=== PATIENT | male | born 1995 | race Caucasian/White ===

== ENCOUNTER 2019-02-28 20:46 | Emergency (ER) | payer OTHER ==
[2019-02-28 21:00] VITALS: RESP 18
--- NOTE | 2019-02-28 21:19 | ED ---
Seizure HPI - General Chief Complaint: Seizure Stated Complaint: Had two seizures Time Seen by Provider: 02/28/19 21:02 Source: patient Mode of arrival: wheelchair Limitations: no limitations - History of Present Illness Initial Comments: This patient is 23-year-old man who presents to be evaluated for suspected seizures. The patient states that he had not been feeling well, he has been having some cough and wheezing for a few days. Last night and then again just prior to coming in he had suspected seizures. Was reported that he passed out, had some tensing up and shaking, followed by a brief period of confusion. Happened again this evening. Patient has no history of seizures. Denies trauma. Patient states she is back at his baseline other than having the cough and wheezing. MD Complaint: seizure -: minutes(s) Description of Episode: loss of consciousness, tonic-clonic movement -: second(s) Witnessed: yes - by bystander Trauma: No Seizure History: none Place: home Possible Precipitating Event: none Associated Symptoms: cough Treatments Prior to Arrival: none - Related Data Previous Rx's Medication Instructions Recorded Albuterol Inhaler [Ventolin Hfa 1 - 2 puff INHALATION Q6HR PRN #1 02/28/19 Inhaler] inhaler predniSONE 20 mg PO BID #8 tab 02/28/19 Allergies Allergy/AdvReac Type Severity Reaction Status Date / Time No Known Allergies Allergy Verified 02/28/19 21:15 Review of Systems ROS Statement: Those systems with pertinent positive or pertinent negative responses have been documented in the HPI. ROS Other: All systems not noted in ROS Statement are negative. Constitutional: Denies: fever, chills, weakness Eyes: Denies: eye pain, vision change Respiratory: Reports: cough, wheezes. Denies: dyspnea, hemoptysis Cardiovascular: Denies: chest pain, palpitations, syncope Gastrointestinal: Denies: abdominal pain, nausea, vomiting Genitourinary: Denies: dysuria, hematuria Skin: Denies: rash Neurological: Denies: headache, weakness, numbness, paresthesias Past Medical History Past Medical History: Asthma History of Any Multi-Drug Resistant Organisms: None Reported Past Surgical History: No Surgical Hx Reported Past Psychological History: Anxiety Smoking Status: Current every day smoker Past Alcohol Use History: Occasional Past Drug Use History: None Reported General Exam Limitations: no limitations General appearance: alert, in no apparent distress Head exam: Present: atraumatic, normocephalic Eye exam: Present: normal appearance. Absent: scleral icterus, conjunctival in jection ENT exam: Present: normal oropharynx Neck exam: Present: normal inspection, full ROM. Absent: tenderness, meningismus Respiratory exam: Present: wheezes. Absent: respiratory distress, rales, rhonchi, stridor Cardiovascular Exam: Present: regular rate, normal rhythm, normal heart sounds. Absent: systolic murmur, diastolic murmur, rubs, gallop GI/Abdominal exam: Present: soft. Absent: distended, tenderness, guarding, rebound, rigid Extremities exam: Present: normal inspection, normal capillary refill. Absent: pedal edema, calf tenderness Back exam: Absent: CVA tenderness (R), CVA tenderness (L), vertebral tenderness Neurological exam: Present: alert, oriented X3, CN II-XII intact. Absent: motor sensory deficit Skin exam: Present: warm, dry, intact, normal color. Absent: rash Course Vital Signs 02/28/19 02/28/19 02/28/19 20:54 22:45 22:48 Temperature 98.6 F 98.3 F Pulse Rate 67 84 84 Respiratory 18 18 Rate Blood Pressure 133/83 130/82 O2 Sat by Pulse 97 96 Oximetry 02/28/19 22:58 Temperature Pulse Rate 84 Respiratory Rate Blood Pressure O2 Sat by Pulse Oximetry Medical Decision Making - Medical Decision Making Patient is 23-year-old man with possible new-onset seizures. Patient is back at his baseline. Discussed admission versus further outpatient workup with neurology, at this point patient elects outpatient. Discussed driving restrictions falling seizures. Patient also with acute bronchitis and started treatment for this. Appropriate further care and follow-up discussed. - Lab Data Result diagrams: 02/28/19 21:10 02/28/19 21:10 Lab Results 02/28/19 02/28/19 02/28/19 Range/Units 21:10 21:10 21:10 WBC 9.9 (3.8-10.6) k/uL RBC 5.07 (4.30-5.90) m/uL Hgb 15.5 (13.0-17.5) gm/dL Hct 45.6 (39.0-53.0) % MCV 90.0 (80.0-100.0) fL MCH 30.5 (25.0-35.0) pg MCHC 34.0 (31.0-37.0) g/dL RDW 12.1 (11.5-15.5) % Plt Count 250 (150-450) k/uL Neutrophils % 72 % Lymphocytes % 19 % Monocytes % 5 % Eosinophils % 2 % Basophils % 0 % Neutrophils # 7.2 (1.3-7.7) k/uL Lymphocytes # 1.9 (1.0-4.8) k/uL Monocytes # 0.5 (0-1.0) k/uL Eosinophils # 0.2 (0-0.7) k/uL Basophils # 0.0 (0-0.2) k/uL Sodium 143 (137-145) mmol/L Potassium 4.1 (3.5-5.1) mmol/L Chloride 106 (98-107) mmol/L Carbon Dioxide 26 (22-30) mmol/L Anion Gap 11 mmol/L BUN 11 (9-20) mg/dL Creatinine 1.05 (0.66-1.25) mg/dL Est GFR (CKD-EPI)AfAm >90 (>60 ml/min/1.73 sqM) Est GFR (CKD-EPI)NonAf >90 (>60 ml/min/1.73 sqM) Glucose 88 (74-99) mg/dL Calcium 10.3 H (8.4-10.2) mg/dL Total Bilirubin 0.4 (0.2-1.3) mg/dL AST 34 (17-59) U/L ALT 49 (21-72) U/L Alkaline Phosphatase 96 (38-126) U/L Total Protein 7.9 (6.3-8.2) g/dL Albumin 4.7 (3.5-5.0) g/dL Urine Opiates Screen Not Detected (NotDetected) Ur Oxycodone Screen Not Detected (NotDetected) Urine Methadone Screen Not Detected (NotDetected) Ur Propoxyphene Screen Not Detected (NotDetected) Ur Barbiturates Screen Not Detected (NotDetected) U Tricyclic Antidepress Not Detected (NotDetected) Ur Phencyclidine Scrn Not Detected (NotDetected) Ur Amphetamines Screen Not Detected (NotDetected) U Methamphetamines Scrn Not Detected (NotDetected) U Benzodiazepines Scrn Not Detected (NotDetected) Urine Cocaine Screen Not Detected (NotDetected) U Marijuana (THC) Screen Detected H (NotDetected) Serum Alcohol <10 mg/dL - EKG Data -: EKG Interpreted by Me EKG shows normal: sinus rhythm (With sinus arrhythmia, rate 72 bpm), axis (Normal), intervals (Normal), QRS complexes (Normal), ST-T waves (Normal) Rate: normal Interpretation: normal EKG Disposition Clinical Impression: New onset seizure, Bronchitis Disposition: HOME SELF-CARE Condition: Good Instructions (If sedation given, give patient instructions): New-Onset Seizure in Adults (ED) Prescriptions: predniSONE 20 mg PO BID #8 tab Albuterol Inhaler [Ventolin Hfa Inhaler] 1 - 2 puff INHALATION Q6HR PRN #1 inhaler PRN Reason: Wheezing Is patient prescribed a controlled substance at d/c from ED?: No Referrals: None,Stated [Primary Care Provider] - 1-2 days Jarrett Shelton MD [STAFF PHYSICIAN] - 1-2 days
--- NOTE | 2019-02-28 21:38 | CT ---
EXAMINATION TYPE: CT brain wo con DATE OF EXAM: 02/28/2019 COMPARISON: None HISTORY: Pt states he had 2 seizures w/in 24 hours w/LOC. Pt denies seizure hx. CT DLP: 1180.4 mGycm. Automated Exposure Control for Dose Reduction was Utilized. TECHNIQUE: CT scan of the head is performed without contrast. FINDINGS: Ventricles have normal size. There is no mass effect nor midline shift. There is no sign of intracranial hemorrhage. There is mucosal moderate thickening of the ethmoid and maxillary sinuses. Sphenoid and frontal sinuses appear fairly normal. Calvarium is intact. IMPRESSION: Negative CT scan of the brain. Sinusitis.
[2019-02-28 21:40] LABS: Basophils % (A) 0 %; Eosinophils # (A) 0.2 k/uL (0-0.7); Eosinophils % (A) 2 %; HCT 45.6 % (39.0-53.0); HGB 15.5 gm/dL (13.0-17.5); Lymphocytes # (A) 1.9 k/uL (1.0-4.8); Lymphocytes % (A) 19 %; MCH 30.5 pg (25.0-35.0); Mean Platelet Volume 7.1; Monocytes # (A) 0.5 k/uL (0-1.0); Monocytes % (A) 5 %; Neutrophils # (A) 7.2 k/uL (1.3-7.7); Neutrophils % (A) 72 %; Platelet Count 250 k/uL (150-450); RBC 5.07 m/uL (4.30-5.90); RDW 12.1 % (11.5-15.5); WBC 9.9 k/uL (3.8-10.6)
--- NOTE | 2019-02-28 21:49 | XR ---
EXAMINATION TYPE: XR chest 2V DATE OF EXAM: 02/28/2019 COMPARISON: NONE HISTORY: Cough TECHNIQUE: Frontal and lateral views of the chest are obtained. FINDINGS: Heart and mediastinum are normal. Lungs are clear. Diaphragm is normal. Bony thorax appear s normal. IMPRESSION: Normal chest.
[2019-02-28 21:54] LABS: ALT 49 U/L (21-72); AST 34 U/L (17-59); African American GFR (CKD) >90 (>60 ml/min/1.73 sqM); Albumin 4.7 g/dL (3.5-5.0); Alcohol <10 mg/dL; Alkaline Phosphatase 96 U/L (38-126); Anion Gap 11 mmol/L; Blood Urea Nitrogen 11 mg/dL (9-20); Calcium 10.3 mg/dL (8.4-10.2); Carbon Dioxide 26 mmol/L (22-30); Chloride 106 mmol/L (98-107); Glucose 88 mg/dL (74-99); Potassium 4.1 mmol/L (3.5-5.1); Sodium 143 mmol/L (137-145); Total Bilirubin 0.4 mg/dL (0.2-1.3); Total Protein 7.9 g/dL (6.3-8.2)
[2019-02-28 22:01] LABS: Amphetamine Screen,Urine Not Detected (NotDetected); Barbiturate Screen,Urine Not Detected (NotDetected); Benzodiazepines Screen,Urine Not Detected (NotDetected); Cocaine Screen,Urine Not Detected (NotDetected); Methadone Screen, Urine Not Detected (NotDetected); Opiate Screen,Urine Not Detected (NotDetected); Oxycodone Screen, Urine Not Detected (NotDetected); Phencyclidine Screen,Urine Not Detected (NotDetected); Tricyclic Antidepressant,Urine Not Detected (NotDetected); Urn Cannabinoid Scrn Detected (NotDetected)
[2019-02-28] MEDS ORDERED: predniSONE 20 MG TAB PO STA (22:36)
[2019-02-28] MEDS ORDERED: ACETAMINOPHEN TAB 325 MG TAB PO STA (22:36)
[2019-02-28] MEDS ORDERED: ALBUTEROL NEBULIZED 2.5 MG/3 ML INHALATION STA (22:36)
[2019-02-28 22:46] VITALS: BP 130/82; PULSE 84; TEMP 98.3
== END 2019-02-28 23:03 | disposition home or self-care (01) ==
LOC: EC 20:46
DX: R56.9 Unspecified convulsions (principal); J20.9 Acute bronchitis, unspecified; F17.200 Nicotine dependence, unspecified, uncomplicated
CPT/HCPCS: 36415; 94640; 93005; 80053; 85025; 80306; 80320; 71046; 70450; 99285; J7512

== ENCOUNTER 2019-09-22 19:17 | Inpatient (IN) | payer OTHER ==
[~2019-09-22 19:17] MED LIST: NALOXONE 0.4 MG/ML 10 ML VIAL IVP STA
[2019-09-22] MEDS ORDERED: SODIUM CHLORIDE 0.9% 1,000 ML IV STA (19:25)
--- NOTE | 2019-09-22 19:27 | ED ---
Overdose HPI <Casimiro Leal - Last Filed: 09/22/19 21:12> - General Source: police, EMS, RN notes reviewed Mode of arrival: EMS Limitations: altered mental status <Andrea Saenz - Last Filed: 09/22/19 21:50> - General Stated Complaint: Overdose Time Seen by Provider: 09/22/19 19:23 - History of Present Illness Initial Comments: This is a 24-year-old male presents emergency from EMS for possible overdose, altered mental status. Information is given by EMS, police patient is responsive to painful stimuli at this time. Patient received 4 mg of Narcan with no change in mental status. Patient does have some periods of agitation. Patient's was brought in with another person with similar symptoms. There were reports that the patient drank a large amount of tequila, possibly took muscle relaxers. There is no pertinent history given. No obvious injuries. (Andrea Saenz) - Related Data Home Medications Medication Instructions Recorded Confirmed Unable To Assess [Unable to Assess] 09/22/19 09/22/19 Allergies Allergy/AdvReac Type Severity Reaction Status Date / Time No Known Allergies Allergy Verified 09/22/19 20:19 Review of Systems ROS Other: All systems not noted in ROS Statement are negative. <Casimiro Leal - Last Filed: 09/22/19 21:12> ROS Other: All systems not noted in ROS Statement are negative. <Andrea Saenz - Last Filed: 09/22/19 21:50> ROS Statement: Those systems with pertinent positive or pertinent negative responses have been documented in the HPI. Past Medical History Past Medical History: Asthma History of Any Multi-Drug Resistant Organisms: None Reported Past Surgical History: No Surgical Hx Reported Past Psychological History: Anxiety Smoking Status: Current every day smoker Past Alcohol Use History: Occasional Past Drug Use History: None Reported <Andrea Saenz - Last Filed: 09/22/19 21:50> General Exam Limitations: altered mental status General appearance: obtunded Head exam: Present: atraumatic, normocephalic, normal inspection Eye exam: Present: normal appearance, PERRL, EOMI. Absent: scleral icterus, conjunctival injection, periorbital swelling ENT exam: Present: normal oropharynx (Emesis), mucous membranes moist, other (No signs of trauma). Absent: normal exam (Emesis noted) Neck exam: Present: normal inspection, full ROM. Absent: tenderness, meningismus, lymphadenopathy Respiratory exam: Present: respiratory distress, other (Shallow breathing noted, respirations of 8-10). Absent: normal lung sounds bilaterally, wheezes, rales, rhonchi Cardiovascular Exam: Present: normal rhythm, bradycardia (bradycardic at 54), normal heart sounds. Absent: systolic murmur, diastolic murmur, rubs, gallop, clicks GI/Abdominal exam: Present: soft. Absent: tenderness Back exam: Absent: CVA tenderness (R), CVA tenderness (L) Neurological exam: Present: altered. Absent: alert, oriented X3 Skin exam: Present: warm, dry, intact, normal color. Absent: rash <Adnrea Saenz - Last Filed: 09/22/19 21:50> Course <Andrea Saenz - Last Filed: 09/22/19 21:50> Vital Signs 09/22/19 09/22/19 09/22/19 19:20 19:21 19:32 Temperature 93.2 F L Pulse Rate 54 L Respiratory 10 L 10 L Rate Blood Pressure 138/99 O2 Sat by Pulse 100 Oximetry 09/22/19 09/22/19 09/22/19 19:33 19:54 20:00 Temperature 93.2 F L Pulse Rate 73 44 L 44 L Respiratory 10 L 21 16 Rate Blood Pressure 156/114 142/107 O2 Sat by Pulse 94 L 98 100 Oximetry 09/22/19 09/22/19 09/22/19 20:15 20:20 20:30 Temperature 93.0 F L 93.2 F L 93.2 F L Pulse Rate 69 66 64 Respiratory 32 H 13 14 Rate Blood Pressure 145/107 177/94 173/94 O2 Sat by Pulse 97 100 96 Oximetry 09/22/19 09/22/19 09/22/19 20:40 20:45 21:00 Temperature 93.4 F L 93.7 F L Pulse Rate 64 56 L Respiratory 16 12 Rate Blood Pressure 118/93 118/93 118/93 O2 Sat by Pulse 97 97 100 Oximetry 09/22/19 09/22/19 21:15 21:30 Temperature 93.9 F L Pulse Rate 86 56 L Respiratory 28 H 20 Rate Blood Pressure 123/89 152/104 O2 Sat by Pulse 99 Oximetry - Reevaluation(s) Reevaluation #1: 09/22/19 19:26 Anesthesia was immediately notified upon arrival of the patient. Patient evaluated by Dr. Leal (Andrea Saenz) Reevaluation #2: 09/22/19 19:45 Patient was intubated by COAL PIPELINE OPERATOR this time, patient is obtunded, unable to protect airway. Patient had no improvement after Narcan given by EMS and in the emergency department. (Andrea Saenz) Reevaluation #3: 09/22/19 21:37 Patient denies any significant improvement of EKG after 1 amp of bicarb as recommended by poison control. CK, magnesium which were added are unremarkable. (Andrea Saenz) Medical Decision Making - Lab Data Result diagrams: 09/22/19 19:20 09/22/19 19:20 <Casimiro Leal - Last Filed: 09/22/19 21:12> - Lab Data Result diagrams: 09/22/19 19:20 09/22/19 19:20 - EKG Data -: EKG Interpreted by Ar <Andrea Saenz - Last Filed: 09/22/19 21:50> - Medical Decision Making Patient was also evaluated upon arrival by myself, Dr. Leal. Patient is extremely drowsy and unable to demonstrate ability to protect airway. Patient was intubated by COAL PIPELINE OPERATOR. Exam was done. Patient was reexamined again later. Case was discussed in detail with practitioner Gena, who will admit covering for Dr. Koch. Case is also discussed in detail with Dr. Bush, who will consult for critical care. (Casimiro Leal) Patient presented via EMS for respiratory depression, altered mental status. It is unclear at this time with the patient ingested the patient was having to 50 protecting his airway patient was ultimately intubated by anesthesia. Patient had labs, CT of brain, x-ray. These were reviewed. Case discussed with gena covering for Dr. Koch and gis developer. Patient will be admitted to ICU for further management. Poison control was contacted. They did recommend patient received one amp of bicarb secondary to widen QRS. If patient's QRS improves they recommended bicarb drip. Patient did not have any improvement on bicarb noted will be started at this time. ABG reveals pH of 7.34, pCO2 41.6, pO2 greater than 400, (Andrea Saenz) - Lab Data Lab Results 09/22/19 09/22/19 09/22/19 Range/Units 19:20 19:20 19:20 WBC 19.5 H (3.8-10.6) k/uL RBC 5.28 (4.30-5.90) m/uL Hgb 15.8 (13.0-17.5) gm/dL Hct 46.9 (39.0-53.0) % MCV 88.7 (80.0-100.0) fL MCH 29.8 (25.0-35.0) pg MCHC 33.6 (31.0-37.0) g/dL RDW 12.7 (11.5-15.5) % Plt Count 283 (150-450) k/uL Neutrophils % 79 % Lymphocytes % 15 % Monocytes % 4 % Eosinophils % 1 % Basophils % 0 % Neutrophils # 15.4 H (1.3-7.7) k/uL Lymphocytes # 2.9 (1.0-4.8) k/uL Monocytes # 0.7 (0-1.0) k/uL Eosinophils # 0.2 (0-0.7) k/uL Basophils # 0.0 (0-0.2) k/uL Carbon Monoxide, Quant (<10.0) % Sodium 137 (137-145) mmol/L Potassium 4.0 (3.5-5.1) mmol/L Chloride 108 H (98-107) mmol/L Carbon Dioxide 20 L (22-30) mmol/L Anion Gap 9 mmol/L BUN 13 (9-20) mg/dL Creatinine 0.77 (0.66-1.25) mg/dL Est GFR (CKD-EPI)AfAm >90 (>60 ml/min/1.73 sqM) Est GFR (CKD-EPI)NonAf >90 (>60 ml/min/1.73 sqM) Glucose 132 H (74-99) mg/dL Plasma Lactic Acid Dustin 1.9 (0.7-2.0) mmol/L Calcium 8.8 (8.4-10.2) mg/dL Magnesium (1.6-2.3) mg/dL Total Bilirubin 0.3 (0.2-1.3) mg/dL AST 32 (17-59) U/L ALT 35 (4-49) U/L Alkaline Phosphatase 71 (38-126) U/L Ammonia (<30) umol/L Creatine Kinase (55-170) U/L Total Protein 7.0 (6.3-8.2) g/dL Albumin 4.2 (3.5-5.0) g/dL Lipase 90 (23-300) U/L Salicylates <1.0 mg/dL Urine Opiates Screen (NotDetected) Ur Oxycodone Screen (NotDetected) Urine Methadone Screen (NotDetected) Ur Propoxyphene Screen (NotDetected) Acetaminophen <10.0 ug/mL Ur Barbiturates Screen (NotDetected) U Tricyclic Antidepress (NotDetected) Ur Phencyclidine Scrn (NotDetected) Ur Amphetamines Screen (NotDetected) U Methamphetamines Scrn (NotDetected) U Benzodiazepines Scrn (NotDetected) Urine Cocaine Screen (NotDetected) U Marijuana (THC) Screen (NotDetected) Serum Alcohol <10 mg/dL 09/22/19 09/22/19 09/22/19 Range/Units 19:35 20:06 20:40 WBC (3.8-10.6) k/uL RBC (4.30-5.90) m/uL Hgb (13.0-17.5) gm/dL Hct (39.0-53.0) % MCV (80.0-100.0) fL MCH (25.0-35.0) pg MCHC (31.0-37.0) g/dL RDW (11.5-15.5) % Plt Count (150-450) k/uL Neutrophils % % Lymphocytes % % Monocytes % % Eosinophils % % Basophils % % Neutrophils # (1.3-7.7) k/uL Lymphocytes # (1.0-4.8) k/uL Monocytes # (0-1.0) k/uL Eosinophils # (0-0.7) k/uL Basophils # (0-0.2) k/uL Carbon Monoxide, Quant 2.7 (<10.0) % Sodium (137-145) mmol/L Potassium (3.5-5.1) mmol/L Chloride (98-107) mmol/L Carbon Dioxide (22-30) mmol/L Anion Gap mmol/L BUN (9-20) mg/dL Creatinine (0.66-1.25) mg/dL Est GFR (CKD-EPI)AfAm (>60 ml/min/1.73 sqM) Est GFR (CKD-EPI)NonAf (>60 ml/min/1.73 sqM) Glucose (74-99) mg/dL Plasma Lactic Acid Dustin (0.7-2.0) mmol/L Calcium (8.4-10.2) mg/dL Magnesium (1.6-2.3) mg/dL Total Bilirubin (0.2-1.3) mg/dL AST (17-59) U/L ALT (4-49) U/L Alkaline Phosphatase (38-126) U/L Ammonia 13 (<30) umol/L Creatine Kinase (55-170) U/L Total Protein (6.3-8.2) g/dL Albumin (3.5-5.0) g/dL Lipase (23-300) U/L Salicylates mg/dL Urine Opiates Screen Not Detected (NotDetected) Ur Oxycodone Screen Not Detected (NotDetected) Urine Methadone Screen Not Detected (NotDetected) Ur Propoxyphene Screen Not Detected (NotDetected) Acetaminophen ug/mL Ur Barbiturates Screen Not Detected (NotDetected) U Tricyclic Antidepress Not Detected (NotDetected) Ur Phencyclidine Scrn Not Detected (NotDetected) Ur Amphetamines Screen Not Detected (NotDetected) U Methamphetamines Scrn Not Detected (NotDetected) U Benzodiazepines Scrn Not Detected (NotDetected) Urine Cocaine Screen Not Detected (NotDetected) U Marijuana (THC) Screen Detected H (NotDetected) Serum Alcohol mg/dL 09/22/19 Range/Units 20:55 WBC (3.8-10.6) k/uL RBC (4.30-5.90) m/uL Hgb (13.0-17.5) gm/dL Hct (39.0-53.0) % MCV (80.0-100.0) fL MCH (25.0-35.0) pg MCHC (31.0-37.0) g/dL RDW (11.5-15.5) % Plt Count (150-450) k/uL Neutrophils % % Lymphocytes % % Monocytes % % Eosinophils % % Basophils % % Neutrophils # (1.3-7.7) k/uL Lymphocytes # (1.0-4.8) k/uL Monocytes # (0-1.0) k/uL Eosinophils # (0-0.7) k/uL Basophils # (0-0.2) k/uL Carbon Monoxide, Quant (<10.0) % Sodium (137-145) mmol/L Potassium (3.5-5.1) mmol/L Chloride (98-107) mmol/L Carbon Dioxide (22-30) mmol/L Anion Gap mmol/L BUN (9-20) mg/dL Creatinine (0.66-1.25) mg/dL Est GFR (CKD-EPI)AfAm (>60 ml/min/1.73 sqM) Est GFR (CKD-EPI)NonAf (>60 ml/min/1.73 sqM) Glucose (74-99) mg/dL Plasma Lactic Acid Dustin (0.7-2.0) mmol/L Calcium (8.4-10.2) mg/dL Magnesium 1.7 (1.6-2.3) mg/dL Total Bilirubin (0.2-1.3) mg/dL AST (17-59) U/L ALT (4-49) U/L Alkaline Phosphatase (38-126) U/L Ammonia (<30) umol/L Creatine Kinase 162 (55-170) U/L Total Protein (6.3-8.2) g/dL Albumin (3.5-5.0) g/dL Lipase (23-300) U/L Salicylates mg/dL Urine Opiates Screen (NotDetected) Ur Oxycodone Screen (NotDetected) Urine Methadone Screen (NotDetected) Ur Propoxyphene Screen (NotDetected) Acetaminophen ug/mL Ur Barbiturates Screen (NotDetected) U Tricyclic Antidepress (NotDetected) Ur Phencyclidine Scrn (NotDetected) Ur Amphetamines Screen (NotDetected) U Methamphetamines Scrn (NotDetected) U Benzodiazepines Scrn (NotDetected) Urine Cocaine Screen (NotDetected) U Marijuana (THC) Screen (NotDetected) Serum Alcohol mg/dL - EKG Data EKG Comments: EKG performed at 19:19 normal sinus rhythm rate of 64 DE 182 QRS 122 QT/QTC 462/476 (Andrea Saenz) Critical Care Time Critical Care Time: Yes Total Critical Care Time: 35 <Andrea Saenz - Last Filed: 09/22/19 21:50> Critical Care Time: Total 35 minutes of critical care time used 2 initially evaluated the patient, discussed history with EMS and police. Patient's found the altered, obtunded. Patient was intubated by anesthesia at this time. Labs, x-ray, CT were ordered. Poison control was also contacted. Patient is positive for marijuana and other drugs are positive. Negative acetaminophen level negative sailcylates. Patient discussed with Dr. Koch admitting physician, gis developer for ICU care. (Andrea Saenz) Disposition <Casimiro Leal - Last Filed: 09/22/19 21:12> Time of Disposition: 21:50 <Andrea Saenz - Last Filed: 09/22/19 21:50> Clinical Impression: Altered mental status, Drug overdose, Respiratory depression Disposition: ADMITTED IP TO THIS HOSP Condition: Critical
[2019-09-22] MEDS ORDERED: ETOMIDATE 2 MG/ML 10 ML VIAL IVP STA (19:35)
[2019-09-22 19:37] LABS: Basophils % (A) 0 %; Eosinophils # (A) 0.2 k/uL (0-0.7); Eosinophils % (A) 1 %; HCT 46.9 % (39.0-53.0); HGB 15.8 gm/dL (13.0-17.5); Lymphocytes # (A) 2.9 k/uL (1.0-4.8); Lymphocytes % (A) 15 %; MCH 29.8 pg (25.0-35.0); MCHC 33.6 g/dL (31.0-37.0); MCV 88.7 fL (80.0-100.0); Monocytes # (A) 0.7 k/uL (0-1.0); Monocytes % (A) 4 %; Neutrophils # (A) 15.4 k/uL (1.3-7.7); Neutrophils % (A) 79 %; Platelet Count 283 k/uL (150-450); RBC 5.28 m/uL (4.30-5.90); RDW 12.7 % (11.5-15.5); WBC 19.5 k/uL (3.8-10.6)
[2019-09-22 19:44] LABS: ALT 35 U/L (4-49); AST 32 U/L (17-59); Acetaminophen <10.0 ug/mL; African American GFR (CKD) >90 (>60 ml/min/1.73 sqM); Albumin 4.2 g/dL (3.5-5.0); Alcohol <10 mg/dL; Alkaline Phosphatase 71 U/L (38-126); Anion Gap 9 mmol/L; Blood Urea Nitrogen 13 mg/dL (9-20); Calcium 8.8 mg/dL (8.4-10.2); Carbon Dioxide 20 mmol/L (22-30); Chloride 108 mmol/L (98-107); Glucose 132 mg/dL (74-99); Non-African American GFR(CKD) >90 (>60 ml/min/1.73 sqM); Salicylate <1.0 mg/dL; Sodium 137 mmol/L (137-145); Total Bilirubin 0.3 mg/dL (0.2-1.3)
[2019-09-22] MEDS ORDERED: SUCCINYLCHOLINE CHLORIDE VIAL 200 MG/10 ML VIAL IV STA (19:47)
[2019-09-22] MEDS: PROPOFOL 1,000 MG in EMPTY BAG 1 BAG IV SCH ×2 (20:01→22:48)
--- NOTE | 2019-09-22 20:05 | XR ---
EXAMINATION TYPE: XR chest 1V DATE OF EXAM: 09/22/2019 COMPARISON: 02/28/2019 HISTORY: Intubation TECHNIQUE: Single view FINDINGS: The lungs are clear. There is no heart failure. Heart and mediastinum appear normal. Endotr acheal tube is 7 cm from the junito. There is no evidence of pleural effusion. There are chest leads. IMPRESSION: Normal chest.
[2019-09-22 20:13] LABS: Amphetamine Screen,Urine Not Detected (NotDetected); Barbiturate Screen,Urine Not Detected (NotDetected); Benzodiazepines Screen,Urine Not Detected (NotDetected); Cocaine Screen,Urine Not Detected (NotDetected); Methadone Screen, Urine Not Detected (NotDetected); Opiate Screen,Urine Not Detected (NotDetected); Oxycodone Screen, Urine Not Detected (NotDetected); Phencyclidine Screen,Urine Not Detected (NotDetected); Tricyclic Antidepressant,Urine Not Detected (NotDetected); Urn Cannabinoid Scrn Detected (NotDetected)
[2019-09-22] MEDS ORDERED: MIDAZOLAM 1 MG/ML 5 ML VIAL IV STA (20:22)
[2019-09-22 21:03] LABS: Magnesium 1.7 mg/dL (1.6-2.3)
[2019-09-22] MEDS ORDERED: SODIUM BICARB 8.4% 50 ML SYR (1 MEQ/ML) IV STA (21:05)
--- NOTE | 2019-09-22 21:27 | CT ---
EXAMINATION TYPE: CT brain wo con DATE OF EXAM: 09/22/2019 COMPARISON: 02/28/2019 HISTORY: Altered mental status. CT DLP: 1158.4 mGycm Automated exposure control for dose reduction was used. Ventricles and sulci appear normal. There is no mass effect nor midline shift. There is no sign of in tracranial hemorrhage. Calvarium is intact. There is no evidence of cerebral edema. There is mild mucosal thickening in the maxillary sinuses. IMPRESSION: Negative CT scan of the brain. There is significant clearing of the maxillary sinusitis compared to o ld exam.
[2019-09-22 21:35] LABS: ABG HCO3 23 mmol/L (21-25); ABG PCO2 42 mmHg (35-45); ABG PH 7.35 (7.35-7.45); ABG PO2 >400 mmHg (83-108); ABG TCO2 24 mmol/L (19-24); Allen Test Performed? Yes
[2019-09-22] MEDS: SODIUM CHLORIDE 0.9% 1,000 ML IV SCH (21:45)
--- NOTE | 2019-09-22 21:51 | XR ---
EXAMINATION TYPE: XR chest 1V portable DATE OF EXAM: 09/22/2019 COMPARISON: Today HISTORY: Check tube placement TECHNIQUE: FINDINGS: Heart and mediastinum are normal. Lungs are clear. Diaphragm is normal. Bony thorax appears intact. There are chest leads. There is endotracheal tube 8 cm from the junito. There is nasogastric tube in the stomach. IMPRESSION: Normal chest. NG tube is in the stomach.
[2019-09-22] MEDS ORDERED: NALOXONE 0.4 MG/ML 1 ML VIAL IV PRN (23:56)
[2019-09-23] MEDS: PROPOFOL 1,000 MG in EMPTY BAG 1 BAG IV SCH ×7 (02:44→22:39)
[2019-09-23 05:44] LABS: Basophils % (A) 0 %; Eosinophils # (A) 0.1 k/uL (0-0.7); Eosinophils % (A) 1 %; HGB 15.9 gm/dL (13.0-17.5); Lymphocytes # (A) 2.1 k/uL (1.0-4.8); Lymphocytes % (A) 18 %; MCH 30.2 pg (25.0-35.0); MCHC 33.2 g/dL (31.0-37.0); MCV 91.1 fL (80.0-100.0); Monocytes # (A) 0.7 k/uL (0-1.0); Monocytes % (A) 6 %; Neutrophils # (A) 8.5 k/uL (1.3-7.7); Neutrophils % (A) 73 %; Platelet Count 280 k/uL (150-450); RBC 5.27 m/uL (4.30-5.90); RDW 12.8 % (11.5-15.5); WBC 11.6 k/uL (3.8-10.6)
[2019-09-23 06:21] LABS: African American GFR (CKD) >90 (>60 ml/min/1.73 sqM); Anion Gap 8 mmol/L; Blood Urea Nitrogen 11 mg/dL (9-20); Calcium 8.9 mg/dL (8.4-10.2); Carbon Dioxide 22 mmol/L (22-30); Chloride 108 mmol/L (98-107); Glucose 91 mg/dL (74-99); Non-African American GFR(CKD) >90 (>60 ml/min/1.73 sqM); Potassium 4.5 mmol/L (3.5-5.1); Sodium 138 mmol/L (137-145)
--- NOTE | 2019-09-23 06:47 | XR ---
EXAMINATION TYPE: XR chest 1V portable DATE OF EXAM: 09/23/2019 CLINICAL HISTORY: Difficulty breathing progress study. TECHNIQUE: Single AP portable upright view of the chest is obtained. COMPARISON: Chest x-ray from one day earlier FINDINGS: Stable endotracheal and orogastric tubes. Lungs remain clear without pleural effusion or p neumothorax. Cardiac silhouette size stable and within normal limits. Overlying EKG leads redemonstra master. Visualized osseous structures are intact. IMPRESSION: Overall stable findings, no new acute infiltrate.
[2019-09-23 07:46] LABS: ABG Base Excess 1.4 mmol/L; ABG HCO3 26 mmol/L (21-25); ABG Oxygen Saturation 99.3 % (94-97); ABG PCO2 41 mmHg (35-45); ABG PH 7.42 (7.35-7.45); ABG PO2 159 mmHg (83-108); ABG TCO2 27 mmol/L (19-24)
[2019-09-23] MEDS: PANTOPRAZOLE 40 MG/10 ML VIAL IV SCH (09:08)
[2019-09-23] MEDS ORDERED: DEXMEDETOMIDINE/0.9% NACL(PMX) 400 MCG in EMPTY BAG 1 BAG IV SCH ×2 (09:45→10:45)
[2019-09-23] MEDS: SODIUM CHLORIDE 0.9% 1,000 ML IV SCH (11:12)
--- NOTE | 2019-09-23 11:54 | P.HPIM ---
History of Present Illness 24-year-old male is admitted when subsequently intubated secondary to possible drug overdose. Patient actually brought his friend for drug overdose once he is in the ER patient became more and more less responsive was subsequently remained intubated for protection of airway. Patient is presently on baseline when settings clinically doing well except for the agitation with the sedation off because of which patient is started on Precedex, most probably will be extubated later today as per the ER physician note patient had large amount of tequila and possibly to muscle relaxers urine drug screen is only positive for marijuana. There is a possibility that he and his friend who was also intubated may have used car fentanyl. Review of Systems Unable to obtain due to his clinical condition Past Medical History Past Medical History: Asthma History of Any Multi-Drug Resistant Organisms: None Reported Past Surgical History: No Surgical Hx Reported Past Psychological History: Anxiety Smoking Status: Current every day smoker Past Alcohol Use History: Occasional Past Drug Use History: None Reported Medications and Allergies Home Medications Medication Instructions Recorded Confirmed Type Unable To Assess [Unable to Assess] 09/22/19 09/23/19 History Allergies Allergy/AdvReac Type Severity Reaction Status Date / Time No Known Allergies Allergy Verified 09/23/19 10:36 Physical Exam Vitals: Vital Signs Temp Pulse Resp BP Pulse Ox 09/23/19 11:30 55 L 17 118/76 95 09/23/19 11:00 55 L 18 111/63 95 09/23/19 10:30 62 16 109/63 94 L 09/23/19 10:00 67 22 149/100 93 L 09/23/19 09:30 78 22 110/63 96 09/23/19 09:00 58 L 13 108/61 94 L 09/23/19 08:30 59 L 13 106/61 94 L 09/23/19 08:00 99.0 F 60 16 92/56 94 L 09/23/19 07:30 67 16 88/56 94 L 09/23/19 07:00 64 18 100/65 94 L 09/23/19 06:30 68 18 109/76 93 L 09/23/19 06:00 66 24 143/98 94 L 09/23/19 05:30 65 20 105/58 94 L 09/23/19 05:00 62 18 104/59 96 09/23/19 04:30 67 18 106/65 96 09/23/19 04:00 99.3 F 68 17 112/62 96 09/23/19 03:30 66 21 102/58 96 09/23/19 03:00 99.7 F H 74 14 97/57 95 09/23/19 02:30 73 16 94/55 96 09/23/19 02:00 76 21 101/62 95 09/23/19 01:30 76 18 100/62 96 09/23/19 01:00 74 21 101/63 96 09/23/19 00:30 74 14 104/64 97 09/23/19 00:15 70 17 104/64 97 09/23/19 00:00 96.8 F L 68 21 113/67 98 09/22/19 23:45 66 20 113/67 99 09/22/19 23:30 63 20 112/75 99 09/22/19 23:15 95.9 F L 60 20 115/78 100 09/22/19 22:15 94.5 F L 20 L 20 110/75 100 09/22/19 22:00 94.3 F L 57 L 20 115/79 10 L 09/22/19 21:51 94.1 F L 56 L 20 118/83 100 09/22/19 21:30 93.9 F L 56 L 20 152/104 99 09/22/19 21:15 86 28 H 123/89 09/22/19 21:00 93.7 F L 56 L 12 118/93 100 09/22/19 20:45 118/93 97 09/22/19 20:40 93.4 F L 64 16 118/93 97 09/22/19 20:30 93.2 F L 64 14 173/94 96 09/22/19 20:20 93.2 F L 66 13 177/94 100 09/22/19 20:15 93.0 F L 69 32 H 145/107 97 09/22/19 20:00 44 L 16 142/107 100 09/22/19 19:54 44 L 21 156/114 98 09/22/19 19:33 93.2 F L 73 10 L 94 L 09/22/19 19:32 93.2 F L 09/22/19 19:21 54 L 10 L 138/99 100 09/22/19 19:20 10 L Intake and Output 09/22/19 09/23/1920 22:59 06:59 14:59 Intake Total 71.359 825 439.145 Output Total 350 550 310 Balance -278.641 275 129.145 Intake: IV 300 Sodium Chloride 0.9% 1, 300 000 ml @ 75 mls/hr IV . [id number] [facility] Rx#:[id number] Intake, IV Titration 71.359 825 139.145 Amount Propofol 1,000 mg In 71.359 300 64.145 Empty Bag 1 bag @ Titrate IV .Q0M [facility] Rx#: [id number] Sodium Chloride 0.9% 1, 525 75 000 ml @ 75 mls/hr IV . [id number] [facility] Rx#:[id number] Output: Urine 350 550 310 Uretheral (Mayen) 350 Other: Voiding Method Indwelling Catheter Indwelling Catheter Weight 104.326 kg 104.3 kg 104.3 kg PHYSICAL EXAMINATION: GENERAL: Intubated on sedation HEENT: Pupils are round and equally reacting to light. EOMI. No scleral icterus. No conjunctival pallor. Normocephalic, atraumatic. No pharyngeal erythema. No thyromegaly. CARDIOVASCULAR: S1 and S2 present. No murmurs, rubs, or gallops. PULMONARY: Chest is clear to auscultation, no wheezing or crackles. ABDOMEN: Soft, nontender, nondistended, normoactive bowel sounds. No palpable organomegaly. MUSCULOSKELETAL: No joint swelling or deformity. EXTREMITIES: No cyanosis, clubbing, or pedal edema. NEUROLOGICAL: Unable to assess on sedation SKIN: No rashes. Results CBC & Chem 7: 09/23/19 05:29 09/23/19 05:29 Labs: Abnormal Lab Results - Last 24 Hours (Table) 09/22/19 09/22/19 09/22/19 Range/Units 19:20 19:20 19:35 WBC 19.5 H (3.8-10.6) k/uL Neutrophils # 15.4 H (1.3-7.7) k/uL ABG pO2 (83-108) mmHg ABG HCO3 (21-25) mmol/L ABG Total CO2 (19-24) mmol/L ABG O2 Saturation (94-97) % Chloride 108 H (98-107) mmol/L Carbon Dioxide 20 L (22-30) mmol/L Glucose 132 H (74-99) mg/dL U Marijuana (THC) Screen Detected H (NotDetected) 09/22/19 09/23/19 09/23/19 Range/Units 21:30 05:29 05:29 WBC 11.6 H (3.8-10.6) k/uL Neutrophils # 8.5 H (1.3-7.7) k/uL ABG pO2 >400 H (83-108) mmHg ABG HCO3 (21-25) mmol/L ABG Total CO2 (19-24) mmol/L ABG O2 Saturation 100.0 H (94-97) % Chloride 108 H (98-107) mmol/L Carbon Dioxide (22-30) mmol/L Glucose (74-99) mg/dL U Marijuana (THC) Screen (NotDetected) 09/23/19 Range/Units 07:41 WBC (3.8-10.6) k/uL Neutrophils # (1.3-7.7) k/uL ABG pO2 159 H (83-108) mmHg ABG HCO3 26 H (21-25) mmol/L ABG Total CO2 27 H (19-24) mmol/L ABG O2 Saturation 99.3 H (94-97) % Chloride (98-107) mmol/L Carbon Dioxide (22-30) mmol/L Glucose (74-99) mg/dL U Marijuana (THC) Screen (NotDetected) Microbiology - Last 24 Hours (Table) 09/22/19 21:12 Gram Stain - Preliminary Sputum Sputum Culture - Preliminary Assessment and Plan Plan: Altered mental status, toxic encephalopathy secondary to drug overdose actual drug the patient overdosed on is not clear as mentioned in interval history continue with respiratory support wean off as tolerated as patient is being agitated be using Precedex to extubate him. -Acute respiratory failure, patient doesn't have hypoxic and hypercapnic respiratory failure patient is basically intubated for protection of airway. -Leukocytosis reactive without any evidence of infection -History of asthma not in acute exacerbation patient does have history of smok ing -Anxiety disorder
--- NOTE | 2019-09-23 13:45 | P.CNPUL ---
History of Present Illness Consult date: 09/23/19 Requesting physician: Mele Sutton Reason for consult: other (Drug overdose) Chief complaint: Overdose History of present illness: This is a 24-year-old white male, admitted last night from the ER. Patient presented to the ER after he had a large amount of tequila along with muscle relaxers. It is not clear whether the patient used any undetectable opioid in the drug screen, possibly carfentanyl. Apparently when the patient was brought into the ER, he was obtunded, had altered mental status, no obvious injuries were noted. Patient had to be intubated almost as soon as he was brought in by EMS to the ER. According to EMS he was only responsive to deep painful stimuli. Received Narcan with no change whatsoever in his mental status, he did have episodes of extreme agitation on the way to the emergency room. Another friend had similar symptoms upon arrival to the ER, and both were intubated immediately. A drug screen came back showing mostly positive for marijuana. Otherwise the drug screen was completely negative. At any rate patient was intubated, placed on mechanical ventilation, and I saw him this morning. Presently on propofol. His ventilator settings are assist control rate of 20 FiO2 is 30% PEEP is 5 tidal volume is 500. ABG this morning showed a pO2 of 159 pCO2 of 41 pH of 7.42. Patient was quite sedated, however as soon as the propofol was discontinued, patient woke up but extremely agitated, unable to follow any instructions, unable to maintain any eye contact, hence no further plans for weaning or extubation were considered at that point. Patient will be tried on Precedex, and if not tolerated, may switch him back to propofol for the next 24 hours. Chest x-ray showed no evidence of active disease. Review of Systems ROS unobtainable: due to endotracheal tube Past Medical History Past Medical History: Asthma History of Any Multi-Drug Resistant Organisms: None Reported Past Surgical History: No Surgical Hx Reported Past Psychological History: Anxiety Smoking Status: Current every day smoker Past Alcohol Use History: Occasional Past Drug Use History: None Reported Medications and Allergies Home Medications Medication Instructions Recorded Confirmed Type Unable To Assess [Unable to Assess] 09/22/19 09/23/19 History Allergies Allergy/AdvReac Type Severity Reaction Status Date / Time No Known Allergies Allergy Verified 09/23/19 10:36 Physical Exam Vitals: Vital Signs Temp Pulse Resp BP Pulse Ox 09/23/19 13:00 55 L 17 100/62 95 09/23/19 12:30 53 L 21 107/66 95 09/23/19 12:00 98.8 F 51 L 18 120/72 95 09/23/19 11:30 55 L 17 118/76 95 09/23/19 11:00 55 L 18 111/63 95 09/23/19 10:30 62 16 109/63 94 L 09/23/19 10:00 67 22 149/100 93 L 09/23/19 09:30 78 22 110/63 96 09/23/19 09:00 58 L 13 108/61 94 L 09/23/19 08:30 59 L 13 106/61 94 L 09/23/19 08:00 99.0 F 60 16 92/56 94 L 09/23/19 07:30 67 16 88/56 94 L 09/23/19 07:00 64 18 100/65 94 L 09/23/19 06:30 68 18 109/76 93 L 09/23/19 06:00 66 24 143/98 94 L 09/23/19 05:30 65 20 105/58 94 L 09/23/19 05:00 62 18 104/59 96 09/23/19 04:30 67 18 106/65 96 09/23/19 04:00 99.3 F 68 17 112/62 96 09/23/19 03:30 66 21 102/58 96 09/23/19 03:00 99.7 F H 74 14 97/57 95 09/23/19 02:30 73 16 94/55 96 09/23/19 02:00 76 21 101/62 95 09/23/19 01:30 76 18 100/62 96 09/23/19 01:00 74 21 101/63 96 09/23/19 00:30 74 14 104/64 97 09/23/19 00:15 70 17 104/64 97 09/23/19 00:00 96.8 F L 68 21 113/67 98 09/22/19 23:45 66 20 113/67 99 09/22/19 23:30 63 20 112/75 99 09/22/19 23:15 95.9 F L 60 20 115/78 100 09/22/19 22:15 94.5 F L 20 L 20 110/75 100 09/22/19 22:00 94.3 F L 57 L 20 115/79 10 L 09/22/19 21:51 94.1 F L 56 L 20 118/83 100 09/22/19 21:30 93.9 F L 56 L 20 152/104 99 09/22/19 21:15 86 28 H 123/89 09/22/19 21:00 93.7 F L 56 L 12 118/93 100 09/22/19 20:45 118/93 97 09/22/19 20:40 93.4 F L 64 16 118/93 97 09/22/19 20:30 93.2 F L 64 14 173/94 96 09/22/19 20:20 93.2 F L 66 13 177/94 100 09/22/19 20:15 93.0 F L 69 32 H 145/107 97 09/22/19 20:00 44 L 16 142/107 100 09/22/19 19:54 44 L 21 156/114 98 09/22/19 19:33 93.2 F L 73 10 L 94 L 09/22/19 19:32 93.2 F L 09/22/19 19:21 54 L 10 L 138/99 100 09/22/19 19:20 10 L Intake and Output 09/22/19 09/23/19 09/23/19 22:59 06:59 14:59 Intake Total 71.359 825 619.358 Output Total 350 550 485 Balance -278.641 275 134.358 Intake: IV 450 Sodium Chloride 0.9% 1, 450 000 ml @ 75 mls/hr IV . [id number] [facility] Rx#:[id number] Intake, IV Titration 71.359 825 169.358 Amount Dexmedetomidine/0.9% NaCl 8.518 (Pmx) 400 mcg In Empty Bag 1 bag @ Titrate IV . Q0M [facility] Rx#:[id number] Propofol 1,000 mg In 71.359 300 85.840 Empty Bag 1 bag @ Titrate IV .Q0M [facility] Rx#: [id number] Sodium Chloride 0.9% 1, 525 75 000 ml @ 75 mls/hr IV . [id number] [facility] Rx#:[id number] Output: Urine 350 550 485 Uretheral (Mayen) 350 Other: Voiding Method Indwelling Catheter Indwelling Catheter Weight 104.326 kg 104.3 kg 104.3 kg Physical Exam: Revealed 24-year-old white male on mechanical ventilation. Sedated, on propofol. Head: Atraumatic, normocephalic. Endotracheal tube and orogastric tube are intact. HEENT:[Neck is supple.] [No neck masses.] [No thyromegaly.] [No JVD.] Moist mucous membranes PERRLA, EOMI. Chest: [Clear throughout, no crackles, no rhonchi, no wheezes.] Symmetrical chest expansion. Cardiac Exam: [Normal S1 and S2, no S3 gallop, no murmur.] Abdomen: [Soft, nontender, no megaly, no rebound, no guarding, normal bowel sounds.] Extremities: [No clubbing, no edema, no cyanosis.] Neurological Exam: Sedated, cannot be assessed. However off propofol the patient was extremely agitated, had to be placed back on sedation. Psychiatric: Could not be assessed. Skin: Multiple tattoos otherwise unremarkable. Lymphatics: No lymphadenopathy. Results - Laboratory Findings CBC and BMP: 09/23/19 05:29 09/23/19 05:29 ABG ABG pH 7.42 (7.35-7.45) 09/23/19 07:41 ABG pCO2 41 mmHg (35-45) 09/23/19 07:41 ABG pO2 159 mmHg (83-108) H 09/23/19 07:41 ABG O2 Saturation 99.3 % (94-97) H 09/23/19 07:41 Abnormal lab findings: Abnormal Labs 09/22/19 09/22/19 09/22/19 19:20 19:20 19:35 WBC 19.5 H Neutrophils # 15.4 H ABG pO2 ABG HCO3 ABG Total CO2 ABG O2 Saturation Chloride 108 H Carbon Dioxide 20 L Glucose 132 H U Marijuana (THC) Screen Detected H 09/22/19 09/23/19 09/23/19 21:30 05: 05:29 WBC 11.6 H Neutrophils # 8.5 H ABG pO2 >400 H ABG HCO3 ABG Total CO2 ABG O2 Saturation 100.0 H Chloride 108 H Carbon Dioxide Glucose U Marijuana (THC) Screen 09/23/19 07:41 WBC Neutrophils # ABG pO2 159 H ABG HCO3 26 H ABG Total CO2 27 H ABG O2 Saturation 99.3 H Chloride Carbon Dioxide Glucose U Marijuana (THC) Screen - Diagnostic Findings Chest x-ray: image reviewed (As noted in HPI.) Assessment and Plan Assessment: Impression: Drug overdose, exact drug ingested is not clear. Acute respiratory failure, patient was supposedly intubated to protect his airways since he had an acute presentation of mental status change and up 10 days upon arrival to the ER. No documented hypoxic or hypercapnic respiratory failure on presentation. History of bronchial asthma, presently stable Acute metabolic encephalopathy/toxic encephalopathy secondary to drug overdose. Recommendation: Continue ventilatory support. GI and DVT prophylaxis. Not quite ready for weaning today, we will place the patient back on propofol, and address weeding in the next 24 hours. In the meantime continue present supportive care measures. We'll continue to follow. Time with Patient: Greater than 30
[2019-09-23] MEDS ORDERED: SODIUM CHLORIDE 0.9% 2,000 ML IV ONE (14:30)
[2019-09-23] MEDS: HEPARIN SODIUM,PORCINE 5,000 UNIT/ML 1 ML VIAL SQ SCH (20:20)
[2019-09-23] MEDS ORDERED: FUROSEMIDE 10 MG/ML 4 ML VIAL IV STA (22:28)
[2019-09-24] MEDS: SODIUM CHLORIDE 0.9% 1,000 ML IV SCH ×3 (00:12→14:58)
[2019-09-24] MEDS ORDERED: fentaNYL (PF) 1,000 MCG in SODIUM CHLORIDE 0.9% 80 ML IV SCH (01:00)
[2019-09-24] MEDS: PROPOFOL 1,000 MG in EMPTY BAG 1 BAG IV SCH ×3 (01:10→09:43)
[2019-09-24 05:44] LABS: Basophils % (A) 0 %; Eosinophils # (A) 0.1 k/uL (0-0.7); Eosinophils % (A) 1 %; HCT 43.8 % (39.0-53.0); HGB 14.1 gm/dL (13.0-17.5); Lymphocytes # (A) 1.8 k/uL (1.0-4.8); Lymphocytes % (A) 17 %; MCH 29.6 pg (25.0-35.0); MCHC 32.1 g/dL (31.0-37.0); MCV 92.2 fL (80.0-100.0); Mean Platelet Volume 8.1; Monocytes # (A) 0.7 k/uL (0-1.0); Monocytes % (A) 6 %; Neutrophils # (A) 7.7 k/uL (1.3-7.7); Neutrophils % (A) 74 %; Platelet Count 205 k/uL (150-450); RBC 4.76 m/uL (4.30-5.90); RDW 12.9 % (11.5-15.5); WBC 10.4 k/uL (3.8-10.6)
[2019-09-24 06:00] LABS: African American GFR (CKD) >90 (>60 ml/min/1.73 sqM); Anion Gap 6 mmol/L; Blood Urea Nitrogen 10 mg/dL (9-20); Calcium 8.9 mg/dL (8.4-10.2); Carbon Dioxide 27 mmol/L (22-30); Chloride 106 mmol/L (98-107); Glucose 88 mg/dL (74-99); Non-African American GFR(CKD) >90 (>60 ml/min/1.73 sqM); Potassium 3.9 mmol/L (3.5-5.1); Sodium 139 mmol/L (137-145)
[2019-09-24 07:52] LABS: Glucose,Whole Blood 94 mg/dL (75-99)
[2019-09-24] MEDS ORDERED: POTASSIUM BICARBONATE/CIT AC 20 MEQ TABLET.EFF NG-TUBE SCH (08:00)
[2019-09-24 08:04] LABS: ABG Base Excess 1.7 mmol/L; ABG HCO3 26 mmol/L (21-25); ABG Oxygen Saturation 96.7 % (94-97); ABG PCO2 41 mmHg (35-45); ABG PH 7.42 (7.35-7.45); ABG PO2 82 mmHg (83-108); ABG TCO2 27 mmol/L (19-24); Allen Test Performed? Yes
[2019-09-24] MEDS: PANTOPRAZOLE 40 MG/10 ML VIAL IV SCH (08:23)
[2019-09-24] MEDS: HEPARIN SODIUM,PORCINE 5,000 UNIT/ML 1 ML VIAL SQ SCH ×2 (08:23→21:57)
[2019-09-24] MEDS ORDERED: HALOPERIDOL LACTATE 5 MG/ML 1 ML VIAL IVP PRN (09:20)
--- NOTE | 2019-09-24 10:33 | XR ---
EXAMINATION TYPE: XR chest 1V portable DATE OF EXAM: 09/24/2019 COMPARISON: 09/23/2019 HISTORY: Ventilatory dependent respiratory failure TECHNIQUE: Single frontal view of the chest is obtained. FINDINGS: Endotracheal tube is cephalad in placement terminating 7.8 cm in the junito. This should b e advanced approximately 3 to 4 cm for optimal placement. Enteric tube appears overall satisfactory. Lungs are well aerated without focal consolidation, pleural effusion or pneumothorax. Stable cardiome diastinal silhouette size. IMPRESSION: Cephalad placement of the endotracheal tube, which should be advanced 3 to 4 cm for opti mal placement.
[2019-09-24] MEDS ORDERED: ARTIFICIAL TEARS-HYPROMELLOSE DROPS 15 ML BTL BOTH EYES PRN (10:46)
[2019-09-24] MEDS ORDERED: CISATRACURIUM 2 MG/ML 5 ML VIAL IV ONE (10:46)
[2019-09-24] MEDS ORDERED: CISATRACURIUM 200 MG in SODIUM CHLORIDE 0.9% 180 ML IV SCH (11:00)
[2019-09-24] MEDS ORDERED: LORazepam 2 MG/ML INJ ONE (11:31)
[2019-09-24] MEDS ORDERED: MIDAZOLAM HCL 50 MG in SODIUM CHLORIDE 0.9% 40 ML IV SCH (12:00)
[2019-09-24] MEDS: BACLOFEN 10 MG TAB PEG/G-TUBE SCH ×2 (13:28→21:57)
--- NOTE | 2019-09-24 13:42 | P.CNNES ---
History of Present Illness Consult date: 09/24/19 Reason for Consult: drug overdose Chief complaint: Inabilty to wean from ventilator History of Present Illness: This is a new neurology consult requested for further advice and recommendations for a 24-year-old young male that was admitted on the for drug overdose. The history we have was acquired by a neighbor and a bystander. Apparently his neighbor saw him bringing his other friend into the house they were both found unresponsive and when his neighbor tried to awaken him he became quite agitated been unresponsive again. EMS was contacted. They arrived at the scene and reportedly gave 4 mg of Narcan with no response. The patient began to vomit and show agonal breathing. He was intubated at the scene. Brought to [facility] emergency room. Urine drug screen was only positive for marijuana. There is a pending [facility] drug screen. Additional history that was given by a bystander was that both the young man drink vodka regularly and they're into taking muscle relaxants. Prashanth's friend's mother reports that her son is on baclofen and often shares it with Prashanth. A history from Daljit ex-girlfriend reported that 2 years ago he was on antiepileptic medication for seizures. He was however uncompliant and was abusing alcohol quite frequently. He apparently is estranged from his family. He has a known drug use history for marijuana, alcohol, methamphetamines and hair went. None of these other medications other than marijuana was noted on her initial drug screening. Over the interim the patient has now still remained ventilated. When sedation has been lowered he is quite combative and agitated. He is unable to be awakened off the ventilator. The patient currently now is being transitioned over from a propofol to Versed. The nursing staff notes that he is often seen having muscle fasciculations along the neck and up into the jaw. This is often associated with autonomic response of pyloric activity of the skin, sweating across the forehead and sweating across the shoulders. Over the interim his blood pressure had gone as high as 200/100. Ativan was given 2 mg followed by fentanyl she's been increased to 2 mcg/kg/h. He will now be switched over to Versed drip. Poison control was contacted due to concern of baclofen toxicity and/or withdrawal. I spoke with Dr. Stauffer and she was reminded us that baclofen has a very long half life and he can stay in his system up to 7-10 days. These patients can look like an anoxic brain injury patient the most concerning issue at hand is the baclofen withdrawal. It's imperative to restart baclofen slowly over this timeframe. In addition with his history of alcohol use, is a high probability that he is also undergoing alcohol withdrawal which could explain why we do not see alcohol currently in his system. With this patient's remote history of seizures he would also be at increased risk for seizure activity. Past Medical History Past Medical History: Asthma History of Any Multi-Drug Resistant Organisms: None Reported Past Surgical History: No Surgical Hx Reported Past Psychological History: Anxiety Smoking Status: Current every day smoker Past Alcohol Use History: Occasional Past Drug Use History: None Reported Medications and Allergies Home Medications Medication Instructions Recorded Confirmed Type Unable To Assess [Unable to Assess] 09/22/19 09/23/19 History Allergies Allergy/AdvReac Type Severity Reaction Status Date / Time No Known Allergies Allergy Verified 09/23/19 10:36 Physical Examination - Vital Signs Vital Signs: Vital Signs Temp Pulse Resp BP Pulse Ox 09/24/19 12:00 78 9 L 135/75 97 09/24/19 11:30 117 H 25 H 200/125 96 09/24/19 11:00 86 20 123/66 96 09/24/19 10:30 79 18 113/55 100 09/24/19 10:00 56 L 20 108/57 100 09/24/19 09:30 66 19 115/71 93 L 09/24/19 09:00 59 L 22 105/67 98 09/24/19 08:30 98.0 F 44 L 20 108/58 99 09/24/19 08:00 44 L 20 102/56 09/24/19 07:51 97 09/24/19 07:30 44 L 20 110/64 95 09/24/19 07:00 57 L 20 116/74 97 09/24/19 06:30 46 L 20 120/73 96 09/24/19 06:00 45 L 20 123/78 95 09/24/19 05:30 44 L 20 112/68 100 09/24/19 05:00 43 L 20 97/53 98 09/24/19 04:30 46 L 20 99/48 96 09/24/19 04:00 98.9 F 50 L 20 101/57 94 L 09/24/19 03:30 45 L 20 104/56 96 09/24/19 03:00 49 L 17 104/56 96 09/24/19 02:30 49 L 20 100/49 97 09/24/19 02:00 50 L 20 100/50 97 09/24/19 01:30 50 L 20 142/80 98 09/24/19 01:00 87 13 129/65 99 09/24/19 00:30 52 L 20 116/67 99 09/24/19 00:12 62 20 116/67 100 09/24/19 00:00 99.1 F 50 L 20 121/73 99 09/23/19 23:30 50 L 20 108/54 99 09/23/19 23:00 51 L 20 117/79 98 09/23/19 22:30 46 L 20 108/57 100 09/23/19 22:00 53 L 18 101/49 100 09/23/19 21:30 48 L 20 101/48 100 09/23/19 21:00 49 L 20 97/49 100 09/23/19 20:30 52 L 21 93/46 100 09/23/19 20:00 98.7 F 53 L 20 102/57 100 09/23/19 19:30 54 L 14 99/57 100 09/23/19 19:00 48 L 17 99/67 100 09/23/19 18:30 48 L 18 120/66 100 09/23/19 18:00 49 L 20 114/74 100 09/23/19 17:30 41 L 20 109/68 100 09/23/19 17:00 56 L 20 97/53 99 09/23/19 16:30 51 L 20 116/73 100 09/23/19 16:00 98.5 F 50 L 20 92/52 100 09/23/19 15:30 49 L 20 93/48 99 09/23/19 15:00 56 L 20 86/47 98 09/23/19 14:30 58 L 20 79/42 97 09/23/19 14:00 63 20 71/35 95 09/23/19 13:30 73 20 97/58 95 09/23/19 13:00 55 L 17 100/62 95 Intake and Output 09/23/19 09/24/19 09/24/19 22:59 06:59 14:59 Intake Total 6373.272 3464.000 780 Output Total 495 1760 335 Balance 1254.411 -710.000 445 Intake: IV 1450 600 500 Sodium Chloride 0.9% 1, 450 600 500 000 ml @ 125 mls/hr IV . Q8H [facility] Rx#:[id number] Sodium Chloride 0.9% 2, 1000 000 ml @ 999 mls/hr IV . Q2H1M [facility] Rx#:[id number] Intake, IV Titration 209.411 200.000 100 Amount Propofol 1,000 mg In 209.411 200.000 100 Empty Bag 1 bag @ Titrate IV .Q0M [facility] Rx#: [id number] Tube Feeding 60 190 180 Other 30 60 Output: Urine 495 1760 335 Other: Voiding Method Indwelling Catheter Indwelling Catheter Indwelling Catheter Weight 108 kg Neurological exam: Patient was lightened off propofol drip for several minutes. Mental status: Patient intubated. No spontaneous eye opening. Pupils: 1 mm minimally reactive to light. No roving eye movements noted. Cranial nerve exam: No roving eye movements. Face appears symmetric. Cough is intact. Motor examination: Moves all 4 extremities equally. Increased tone is noted in the upper extremities bilaterally. Muscle fasciculations are noted along the neck bilaterally. Deep tendon reflexes: +1 over biceps brachial radialis bilaterally. Patellar reflexes are absent bilaterally. No ankle clonus elicited. Plantar responses mute bilaterally. Sensory examination grossly intact when ET tube is moved patient moves all 4 extremities to tactile stimulation. Gen. physical examination Appearance: Well-nourished. Intubated. HEENT: Clear sclera. Clearing clear mucous membranes. Neck appears supple. Pulses radial pedal pulses are equal and symmetric. Skin: No rash bruising or petechia noted. Diaphoretic over the for head and sweating noted along the neck and shoulders bilaterally. Extremities: No gross deformities noted Results - Laboratory Findings CBC and BMP: 09/24/19 05:04 09/24/19 05:04 Abnormal Lab Findings: Abnormal Labs 09/22/19 09/22/19 09/22/19 19:20 19:20 19:35 WBC 19.5 H Neutrophils # 15.4 H ABG pO2 ABG HCO3 ABG Total CO2 ABG O2 Saturation Chloride 108 H Carbon Dioxide 20 L Glucose 132 H U Marijuana (THC) Screen Detected H 0409/23/19 09/23/19 21:30 05:29 05:29 WBC 11.6 H Neutrophils # 8.5 H ABG pO2 >400 H ABG HCO3 ABG Total CO2 ABG O2 Saturation 100.0 H Chloride 108 H Carbon Dioxide Glucose U Marijuana (THC) Screen 09/23/19 09/24/19 07:41 07:56 WBC Neutrophils # ABG pO2 159 H 82 L ABG HCO3 26 H 26 H ABG Total CO2 27 H 27 H ABG O2 Saturation 99.3 H Chloride Carbon Dioxide Glucose U Marijuana (THC) Screen Assessment and Plan Assessment: 24-year-old male found down unresponsive and agitated been unresponsive again by neighbors. Required intubation at the scene by EMS. History of substance abuse. Suspected abuse on this admission involves baclofen. Drug screen negative for alcohol but high probability of alcohol withdrawal involving either baclofen toxicity or baclofen withdrawal or both. Remote history for seizures. Summary: 1. Suspect baclofen toxicity and/or baclofen withdrawal 2. Suspect alcohol withdrawal 3. Remote history of epilepsy 4. 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 Plan: Recommendations: 1. Recommendations per poison control due to long half-life of baclofen up to 7010 days this patient could remain on the ventilator for this length of time. These patients can often appear is anoxic brain injury one has to wait out the withdrawal status. Therefore to recommended to start with a low-dose of baclofen at 10 mg scheduled Q8 hours per NG tube. Titrate accordingly to agitation. 2. Alcohol withdrawal: Utilize Versed drip as the benzo to initially prevent DVTs. Once patient is awake and more alert could start CIWA protocol. 3. Due to patient's history of seizures would recommend starting Keppra 1000 mg every 12 IV. 4. EEG this afternoon. 5. Additional labs: CK and prolactin level. 6. Close monitoring for aspiration as patient at the scene was found unresponsive. This patient's prognosis remains very guarded. Neurology will be available over the weekend to closely monitor daily. Dr. Hall will take over the case on Friday morning. If there are any further questions or concerns please call Dr. Amato [phone] Karen Amato MD Board Certified in Neurology and Sleep medicine
--- NOTE | 2019-09-24 14:04 | P.PN ---
Subjective Progress Note Date: 09/24/19 Principal diagnosis: Drug overdose, suspected baclofen overdose This is a 24-year-old white male, admitted last night from the ER. Patient presented to the ER after he had a large amount of tequila along with muscle relaxers. It is not clear whether the patient used any undetectable opioid in the drug screen, possibly carfentanyl. Apparently when the patient was brought into the ER, he was obtunded, had altered mental status, no obvious injuries were noted. Patient had to be intubated almost as soon as he was brought in by EMS to the ER. According to EMS he was only responsive to deep painful stimuli. Received Narcan with no change whatsoever in his mental status, he did have episodes of extreme agitation on the way to the emergency room. Another friend had similar symptoms upon arrival to the ER, and both were intubated immediately. A drug screen came back showing mostly positive for marijuana. Otherwise the drug screen was completely negative. At any rate patient was intubated, placed on mechanical ventilation, and I saw him this morning. Presently on propofol. His ventilator settings are assist control rate of 20 FiO2 is 30% PEEP is 5 tidal volume is 500. ABG this morning showed a pO2 of 159 pCO2 of 41 pH of 7.42. Patient was quite sedated, however as soon as the propofol was discontinued, patient woke up but extremely agitated, unable to follow any instructions, unable to maintain any eye contact, hence no further plans for weaning or extubation were considered at that point. Patient will be tried on Precedex, and if not tolerated, may switch him back to propofol for the next 24 hours. Chest x-ray showed no evidence of active disease. Patient was reevaluated today on 09/24/19, remains in the ICU, intubated and mechanically ventilated. Patient is on assist control rate of 20 tidal volume is 500 FiO2 is 40% and PEEP of 5. His ABG today showed a pO2 of 82 pCO2 of 41 pH of 7.42. Chest x-ray showed no evidence of active disease, lungs are well aerated, no focal consolidation or infiltrate, endotracheal tube was noted to be high in the trachea and it will be advanced down 2 cm at least. His labs including his CBC and basic metabolic profile are noted to be normal. Today we have attempted to wean off propofol and assess the patient could be weaned and extubated. However the patient became extremely agitated, restless, and he was biting on the endotracheal tube, and could not be sedated to properly ventilate him. Hence Nimbex was given in addition to higher dose of propofol and higher dose of fentanyl. After Nimbex, patient was noted to have significantly elevated blood pressure, and I was concerned about the possibility of underlying seizures mass by Nimbex, hence I recommended stopping the Nimbex immediately. I also recommended switching propofol to Versed and I have kept him on fentanyl at 2 mcg/kg/h. I have also recommended Ativan 2 mg IV push 1. That seemed to help significantly. In the meantime I have recommended neurological evaluation. Dr. Amato saw the patient, and discussed the issue of potential baclofen overdose with the poison control. They were already notified about this patient upon admission, and the recommendation was supportive care measures only. They are still recommending supportive care measures, but they're also concerned about the possibility that baclofen has a long half-life, and if the patient chronically abuses baclofen, there is a concern about baclofen withdrawal well, and recommending at least small dose of baclofen to be given via nasogastric tube. And this was recommended by neurology on the case. In the meantime considering the patient has history of seizure disorder, Keppra was also added. Now the patient is on Versed which is being titrated, discontinued propofol, kept him on fentanyl, we will use Ativan intermittently as needed, Keppra was added by neurology. And recommended Lioresal/baclofen via nasogastric tube 10 mg 3 times a day. Nimbex was discontinued. IV fluid was increased to 1 25 mL per hour. And the plan is to start patient on enteral feeding today. Objective - Vital Signs Vital signs: Vital Signs Temp 98.0 F 09/24/19 08:30 Pulse 98 09/24/19 13:00 Resp 20 09/24/19 13:00 BP 136/73 09/24/19 13:00 Pulse Ox 98 09/24/19 13:00 Intake & Output 09/23/19 09/24/19 09/24/19 18:59 06:59 18:59 Intake Total 3017.663 1491.751 917 Output Total 885 1920 365 Balance 2132.663 -428.249 552 Weight 104.3 kg 108 kg Intake: IV 2750 825 625 Sodium Chloride 0.9% 1, 750 825 625 000 ml @ 125 mls/hr IV . Q8H [facility] Rx#:[id number] Sodium Chloride 0.9% 2, 2000 000 ml @ 999 mls/hr IV . Q2H1M [facility] Rx#:[id number] Intake, IV Titration 247.663 346.751 112 Amount Dexmedetomidine/0.9% NaCl 8.518 (Pmx) 400 mcg In Empty Bag 1 bag @ Titrate IV . Q0M [facility] Rx#:[id number] Midazolam HCl 200 mg In 10 Sodium Chloride 0.9% 60 ml @ 10 MG/HR 5 mls/hr IV .Q20H [facility] Rx#:[id number] Propofol 1,000 mg In 164.145 346.751 100 Empty Bag 1 bag @ Titrate IV .Q0M [facility] Rx#: [id number] Sodium Chloride 0.9% 1, 75 000 ml @ 125 mls/hr IV . Q8H [facility] Rx#:[id number] fentaNYL (PF) 2,500 mcg 2 In Sodium Chloride 0.9% 200 ml @ Per Protocol IV .Q0M [facility] Rx#:[id number] Tube Feeding 20 230 180 Other 90 Output: Urine 885 1920 365 Other: Voiding Method Indwelling Catheter Indwelling Catheter Indwelling Catheter - Exam Physical Exam: Revealed 24-year-old white male on mechanical ventilation. Sedated with Versed, and fentanyl. Head: Atraumatic, normocephalic. Endotracheal tube and orogastric tube are intact. HEENT:[Neck is supple.] [No neck masses.] [No thyromegaly.] [No JVD.] Moist mucous membranes PERRLA, EOMI. Chest: [Clear throughout, no crackles, no rhonchi, no wheezes.] Symmetrical magdy st expansion. Cardiac Exam: [Normal S1 and S2, no S3 gallop, no murmur.] Abdomen: [Soft, nontender, no megaly, no rebound, no guarding, normal bowel sounds.] Extremities: [No clubbing, no edema, no cyanosis.] Neurological Exam: Extreme agitation noted off propofol, patient was pulling and biting on his endotracheal tube, he was not opening his eyes, his mentation was extremely poor, and not coherent. Would not follow any instructions, would not open eyes, hence had to be placed back on sedation, Nimbex was given for a short brief period of time. But it was discontinued because of significantly elevated pressure while on Nimbex. Psychiatric: Could not be assessed. Skin: Multiple tattoos otherwise unremarkable. Lymphatics: No lymphadenopathy. - Labs CBC & Chem 7: 09/24/19 05:04 09/24/19 05:04 Labs: Abnormal Lab Results - Last 24 Hours (Table) 09/24/19 Range/Units 07:56 ABG pO2 82 L (83-108) mmHg ABG HCO3 26 H (21-25) mmol/L ABG Total CO2 27 H (19-24) mmol/L Assessment and Plan Assessment: Impression: Drug overdose, this is baclofen overdose unless for otherwise. Possible baclofen withdrawal and difficult to wean from mechanical ventilation. History of alcohol abuse. History of substance abuse including methamphetamine, heroin, alcohol, and marijuana. Remote history of epilepsy. Acute respiratory failure, patient was supposedly intubated to protect his airways since he had an acute presentation of mental status change and up 10 days upon arrival to the ER. No documented hypoxic or hypercapnic respiratory failure on presentation. History of bronchial asthma, presently stable Acute metabolic encephalopathy/toxic encephalopathy secondary to drug overdose. Recommendation: Continue ventilatory support. No plans to wean this patient any time soon, according to poison control, baclofen has a very long half-life, could be 7-10 days. Lines will be placed in this patient including arterial line, and central line. Continue GI and DVT prophylaxis. Neurological consultation was reviewed, it is truly appreciated, and the patient is now on baclofen small dose, Keppra, will continue Versed, continue fentanyl. Not quite ready for weaning today, we will place the patient back on propofol, we will address weeding on a daily basis.. In the meantime continue present supportive care measures. Patient to be placed on alcohol withdrawal precautions post extubation. We'll start the patient on thiamine. Critical care time is 40 minutes. Not including the time spent on procedures. We'll continue to follow. Time with Patient: Greater than 30
[2019-09-24 14:56] LABS: C Reactive Protein 17.3 mg/L (<10.0)
[2019-09-24] MEDS: levETIRAcetam IV 1,000 MG in SALINE 1 100ML.BAG IVPB SCH (14:56)
--- NOTE | 2019-09-24 15:02 | P.PN ---
Subjective Progress Note Date: 09/24/19 Principal diagnosis: 24-year-old male is admitted when subsequently intubated secondary to possible drug overdose. Patient actually brought his friend for drug overdose once he is in the ER patient became more and more less responsive was subsequently remained intubated for protection of airway. Patient is presently on baseline when settings clinically doing well except for the agitation with the sedation off because of which patient is started on Precedex, most probably will be extubated later today as per the ER physician note patient had large amount of tequila and possibly to muscle relaxers urine drug screen is only positive for marijuana. There is a possibility that he and his friend who was also intubated may have used car fentanyl. 09/24/2019 Patient is seen and evaluated and follow-up and currently remains intubated on mechanical vent in the ICU and is being closely monitored. Flight Control Manager following closely. Neurology consulted and pending at this time. Attempts at weaning off propofol this morning with increased agitation inviting an ET tube with extreme restlessness noted and patient was recently sedated with propofol. Patient also has fentanyl running. Awaiting toxicology report that was a send out today. Basic labs within normal limits. Sodium is currently 139 and creatinine is 0.87. Initiating enteral feeding today as patient remains intubated and will continue at this time. Possible drug overdose culprit to baclofen although pending report at this time. Objective - Vital Signs Vital signs: Vital Signs Temp 98.0 F 09/24/19 08:30 Pulse 78 09/24/19 12:00 Resp 9 L 09/24/19 12:00 BP 135/75 09/24/19 12:00 Pulse Ox 97 09/24/19 12:00 Intake & Output 09/23/19 09/24/19 09/24/19 18:59 06:59 18:59 Intake Total 3017.663 1491.751 780 Output Total 885 1920 335 Balance 2132.663 -428.249 445 Weight 104.3 kg 108 kg Intake: IV 2750 825 500 Sodium Chloride 0.9% 1, 750 825 500 000 ml @ 125 mls/hr IV . Q8H [facility] Rx#:[id number] Sodium Chloride 0.9% 2, 2000 000 ml @ 999 mls/hr IV . Q2H1M [facility] Rx#:[id number] Intake, IV Titration 247.663 346.751 100 Amount Dexmedetomidine/0.9% NaCl 8.518 (Pmx) 400 mcg In Empty Bag 1 bag @ Titrate IV . Q0M [facility] Rx#:[id number] Propofol 1,000 mg In 164.145 346.751 100 Empty Bag 1 bag @ Titrate IV .Q0M [facility] Rx#: [id number] Sodium Chloride 0.9% 1, 75 000 ml @ 125 mls/hr IV . Q8H [facility] Rx#:[id number] Tube Feeding 20 230 180 Other 90 Output: Urine 885 1920 335 Other: Voiding Method Indwelling Catheter Indwelling Catheter Indwelling Catheter - Exam GENERAL: 24-year-old male Intubated, continues on sedation, attempts at weaning today showed increased agitation and not following commands requiring sedation again. HEENT: Pupils are round and equally reacting to light. EOMI. No scleral icterus. No conjunctival pallor. Normocephalic, atraumatic. No pharyngeal erythema. No thyromegaly. CARDIOVASCULAR: S1 and S2 present. No murmurs, rubs, or gallops. PULMONARY: Chest is clear to auscultation, no wheezing or crackles. ABDOMEN: Soft, nondistended, normoactive bowel sounds. No palpable organome bonilla. MUSCULOSKELETAL: No joint swelling or deformity. EXTREMITIES: No cyanosis, clubbing, or pedal edema. NEUROLOGICAL: Unable to assess on sedation SKIN: No rashes. Multiple tattoos noted - Labs CBC & Chem 7: 09/24/19 05:04 09/24/19 05:04 Labs: Abnormal Lab Results - Last 24 Hours (Table) 09/24/19 Range/Units 07:56 ABG pO2 82 L (83-108) mmHg ABG HCO3 26 H (21-25) mmol/L ABG Total CO2 27 H (19-24) mmol/L Microbiology - Last 24 Hours (Table) 09/22/19 21:12 Gram Stain - Preliminary Sputum Sputum Culture - Preliminary Assessment and Plan Assessment: -Altered mental status, toxic encephalopathy secondary to drug overdose actual drug the patient overdosed on is not clear as mentioned in interval history although culprit may be baclofen and send out toxicology pending at this time as it was sent out today. continue with respiratory support. Neurology consulted and pending at this time. -Acute respiratory failure, patient doesn't have hypoxic and hypercapnic respiratory failure patient is basically intubated for protection of airway. -Leukocytosis reactive without any evidence of infection -History of asthma not in acute exacerbation patient does have history of smoking -Anxiety disorder Plan: Continue with close monitoring in the ICU and piece marker small arms following. Neurology consulted and pending at this time. To continue with sedation as attempts at weaning resulted in severe agitation and restlessness requiring re-sedation. Further recommendations to follow. Awaiting toxicology send out report for po ssible baclofen overdose.
[2019-09-24 15:13] LABS: Comprehensive Drug Screen Ur SeeBelow; Creatinine, Random Urine 200 mg/dL
[2019-09-24] MEDS: MIDAZOLAM HCL 200 MG in SODIUM CHLORIDE 0.9% 60 ML IV SCH (15:24)
[2019-09-24] MEDS ORDERED: BACLOFEN 10 MG TAB PO SCH (16:00)
[2019-09-24] MEDS ORDERED: BACLOFEN 10 MG TAB PO ONE (16:40)
[2019-09-24] MEDS: fentaNYL (PF) 2,500 MCG in SODIUM CHLORIDE 0.9% 200 ML IV SCH (17:38)
[2019-09-24] MEDS: PIPERACILLIN-TAZOBACTAM 3.375 GM in SODIUM CHLORIDE 0.9% 100 ML IVPB SCH (18:57)
--- NOTE | 2019-09-24 18:57 | XR ---
EXAMINATION TYPE: XR chest 1V portable DATE OF EXAM: 09/24/2019 Comparison: 09/24/2019 Clinical History: 24-year-old male sob Findings: Heart normal size. ET and NG tubes are satisfactory. Some mild patchy densities in the lower lungs. O therwise, no consolidation or pleural effusion. Impression: Some mild patchy densities in the lower lungs probably atelectasis. Follow-up if concern for developi ng infiltrates.
--- NOTE | 2019-09-24 19:44 | OP ---
OPERATIVE REPORT OPERATIVE PROCEDURE: Placement of a right femoral triple-lumen catheter. PREOPERATIVE DIAGNOSIS: Drug overdose and respiratory failure. POSTOPERATIVE DIAGNOSIS: Drug overdose and respiratory failure. ANESTHESIA USED: 2 mL of 1% lidocaine. PROCEDURE DESCRIPTION: The right groin was prepared in a sterile fashion and drapes were applied. The right femoral area was anesthetized locally with lidocaine. The right femoral vein was easily cannulated. A guidewire was placed. A triple-lumen catheter was inserted over the guidewire, and the guidewire was removed. Good blood flow was noted in the 3 different ports of the triple-lumen catheter. Procedure was well tolerated. No evidence of any immediate complications. The line was secured using 3.0 silk sutures. MMODL / IJN: [id number] /
--- NOTE | 2019-09-24 19:44 | OP ---
OPERATIVE REPORT OPERATIVE PROCEDURE: Placement of right femoral arterial line. PREOPERATIVE DIAGNOSIS: Acute hypoxic respiratory failure secondary to drug overdose. POSTOPERATIVE DIAGNOSIS: Acute hypoxic respiratory failure secondary to drug overdose. ANESTHESIA USED: None deployed. PROCEDURE DESCRIPTION: The patient was placed in a supine position. The right groin was prepared in a sterile fashion. Drapes were applied. The right femoral artery was palpated, cannulated easily, and a guidewire was placed. A femoral Cook's catheter were inserted over the guidewire. The guidewire was removed. Good blood flow and good waveform were noted. Line was secured using 3.0 silk sutures. Procedure was well tolerated. No evidence of any complications. MMODL / IJN: [id number] /
[2019-09-24] MEDS ORDERED: QUEtiapine 50 MG TAB PO SCH (21:00)
--- NOTE | 2019-09-24 22:00 | EEG ---
ELECTROENCEPHALOGRAM REPORT DATE OF SERVICE: 09/24/2019 HISTORY: This is an inpatient EEG performed on a 24-year-old male who was admitted for possible drug overdose and/or withdrawal from baclofen. The patient also was found on drug testing using marijuana. The patient was found unresponsive and agitated and became unresponsive again in the field and required intubation due to acute respiratory failure. The patient is currently on ventilator, intubated. He is receiving Keppra 1000 mg q.12 IV along with baclofen 10 mg q.8. He initially was on a Versed drip, which was turned off at 3:34 p.m. TECHNICAL REPORT: This is an inpatient EEG performed on the [employer] EEG monitor with electrodes placed according to the international 10-20 system and a single EKG channel. Simultaneous video EEG monitoring was performed. This EEG was reviewed in both longitudinal bipolar common average referential transverse montages. Photic stimulation was performed. The recording begins with a severely suppressed background. Throughout the recording, there is high-amplitude frontal intermittent rhythmic delta activity intermixed with periods of electrode decremental response ranging 1 to 2 seconds. Throughout the EEG, activities to stimulate the patient were attempted which involved name calling, stimulating the upper extremities, clapping for auditory stimulation. None of these activities resulted in any change in the background. The patient was off sedation during this study for at least 35 minutes. Photic stimulation was performed at various flash frequencies and did not elicit any change in the background. The background continued to be generalized slowing in the delta range with prominent frontal intermittent rhythmic delta activity. IMPRESSION: This is a severely abnormal EEG suggestive of encephalopathy. This EEG did not show any reactivity to auditory or tactile stimulation. Frontal intermittent rhythmic delta activity can be associated with a structural mass lesion; thus neuro imaging studies are recommended. Serial EEGs are recommended and/or if clinically indicated, a more prolonged overnight study. No electrographic seizures or convulsive seizures were noted in this study. No abnormalities were noted in the EKG. MMODL / IJN: [id number] / [facility]#: [id number] [facility] CENTERJennifer
[2019-09-24] MEDS: ACETAMINOPHEN TAB 325 MG TAB PO PRN (22:21)
[2019-09-25 00:59] LABS: ABG Base Excess -2.2 mmol/L; ABG HCO3 24 mmol/L (21-25); ABG Oxygen Saturation 79.3 % (94-97); ABG PCO2 45 mmHg (35-45); ABG PH 7.33 (7.35-7.45); ABG TCO2 25 mmol/L (19-24); Allen Test Performed? Yes
[2019-09-25] MEDS: LORazepam 2 MG/ML INJ IV PRN ×2 (01:12→01:37)
[2019-09-25] MEDS ORDERED: CISATRACURIUM 2 MG/ML 5 ML VIAL IV ONE (01:32)
[2019-09-25] MEDS: PROPOFOL 1,000 MG in EMPTY BAG 1 BAG IV SCH ×5 (01:38→23:55)
--- NOTE | 2019-09-25 01:42 | XR ---
EXAMINATION TYPE: XR chest 1V portable DATE OF EXAM: 09/25/2019 COMPARISON: Yesterday HISTORY: Check tube placement TECHNIQUE: Single view FINDINGS: IMPRESSION: There is blunting right costophrenic angle. There is bilateral lower lobe pulmonary infil trates. The endotracheal tube is 4 cm from the junito. There is nasogastric tube that appears to be i n the stomach. Trachea is midline. There is no heart failure. IMPRESSION: Compared to yesterday there is development of right pleural effusion and bilateral lower lobe increas ing pneumonic infiltrates.
[2019-09-25] MEDS: MIDAZOLAM HCL 200 MG in SODIUM CHLORIDE 0.9% 60 ML IV SCH ×3 (01:52→12:55)
[2019-09-25] MEDS: levETIRAcetam IV 1,000 MG in SALINE 1 100ML.BAG IVPB SCH ×2 (01:52→12:26)
[2019-09-25] MEDS: PIPERACILLIN-TAZOBACTAM 3.375 GM in SODIUM CHLORIDE 0.9% 100 ML IVPB SCH ×3 (02:02→18:03)
[2019-09-25] MEDS: fentaNYL (PF) 2,500 MCG in SODIUM CHLORIDE 0.9% 200 ML IV SCH ×2 (03:40→15:23)
[2019-09-25] MEDS ORDERED: PROPOFOL 1,000 MG in EMPTY BAG 1 BAG IV SCH (04:45)
[2019-09-25 05:16] LABS: Basophils % (A) 0 %; Eosinophils # (A) 0.1 k/uL (0-0.7); Eosinophils % (A) 1 %; Lymphocytes % (A) 8 %; MCHC 32.6 g/dL (31.0-37.0); MCV 91.8 fL (80.0-100.0); Mean Platelet Volume 8.7; Monocytes # (A) 0.3 k/uL (0-1.0); Monocytes % (A) 2 %; Neutrophils # (A) 11.5 k/uL (1.3-7.7); Neutrophils % (A) 88 %; Platelet Count 174 k/uL (150-450); RBC 4.35 m/uL (4.30-5.90); RDW 12.6 % (11.5-15.5)
[2019-09-25 05:59] LABS: ALT 18 U/L (4-49); AST 18 U/L (17-59); African American GFR (CKD) >90 (>60 ml/min/1.73 sqM); Albumin 2.9 g/dL (3.5-5.0); Alkaline Phosphatase 63 U/L (38-126); Anion Gap 5 mmol/L; Blood Urea Nitrogen 8 mg/dL (9-20); Calcium 7.9 mg/dL (8.4-10.2); Carbon Dioxide 23 mmol/L (22-30); Chloride 108 mmol/L (98-107); Glucose 95 mg/dL (74-99); Non-African American GFR(CKD) >90 (>60 ml/min/1.73 sqM); Potassium 3.7 mmol/L (3.5-5.1); Sodium 136 mmol/L (137-145); Total Bilirubin 0.6 mg/dL (0.2-1.3); Total Protein 5.3 g/dL (6.3-8.2)
[2019-09-25] MEDS: SODIUM CHLORIDE 0.9% 1,000 ML IV SCH ×3 (06:31→20:07)
[2019-09-25] MEDS ORDERED: POTASSIUM BICARBONATE/CIT AC 20 MEQ TABLET.EFF NG-TUBE SCH (07:00)
[2019-09-25 08:16] LABS: ABG Base Excess -0.4 mmol/L; ABG HCO3 24 mmol/L (21-25); ABG Oxygen Saturation 97.1 % (94-97); ABG PCO2 39 mmHg (35-45); ABG PO2 89 mmHg (83-108); ABG TCO2 26 mmol/L (19-24); Allen Test Performed? Yes
[2019-09-25] MEDS: HEPARIN SODIUM,PORCINE 5,000 UNIT/ML 1 ML VIAL SQ SCH ×2 (08:45→20:06)
[2019-09-25] MEDS: PANTOPRAZOLE 40 MG/10 ML VIAL IV SCH (08:45)
[2019-09-25] MEDS: BACLOFEN 10 MG TAB PEG/G-TUBE SCH ×3 (08:45→21:40)
[2019-09-25] MEDS ORDERED: SODIUM CHLORIDE 0.9% 1,000 ML IV ONE (09:22)
[2019-09-25 10:20] LABS: Prolactin 22.5 ng/mL (2.1-17.7)
[2019-09-25] MEDS: NOREPINEPHRINE 32 MG in SODIUM CHLORIDE 0.9% 218 ML IV SCH (10:36)
[2019-09-25] MEDS ORDERED: FUROSEMIDE 10 MG/ML 4 ML VIAL IV STA (11:27)
--- NOTE | 2019-09-25 14:50 | P.PN ---
Subjective Progress Note Date: 09/25/19 Principal diagnosis: Drug overdose, suspected baclofen overdose This is a 24-year-old white male, admitted last night from the ER. Patient presented to the ER after he had a large amount of tequila along with muscle relaxers. It is not clear whether the patient used any undetectable opioid in the drug screen, possibly carfentanyl. Apparently when the patient was brought into the ER, he was obtunded, had altered mental status, no obvious injuries were noted. Patient had to be intubated almost as soon as he was brought in by EMS to the ER. According to EMS he was only responsive to deep painful stimuli. Received Narcan with no change whatsoever in his mental status, he did have episodes of extreme agitation on the way to the emergency room. Another friend had similar symptoms upon arrival to the ER, and both were intubated immediately. A drug screen came back showing mostly positive for marijuana. Otherwise the drug screen was completely negative. At any rate patient was intubated, placed on mechanical ventilation, and I saw him this morning. Presently on propofol. His ventilator settings are assist control rate of 20 FiO2 is 30% PEEP is 5 tidal volume is 500. ABG this morning showed a pO2 of 159 pCO2 of 41 pH of 7.42. Patient was quite sedated, however as soon as the propofol was discontinued, patient woke up but extremely agitated, unable to f ollow any instructions, unable to maintain any eye contact, hence no further plans for weaning or extubation were considered at that point. Patient will be tried on Precedex, and if not tolerated, may switch him back to propofol for the next 24 hours. Chest x-ray showed no evidence of active disease. Patient was reevaluated today on 09/24/19, remains in the ICU, intubated and mechanically ventilated. Patient is on assist control rate of 20 tidal volume is 500 FiO2 is 40% and PEEP of 5. His ABG today showed a pO2 of 82 pCO2 of 41 pH of 7.42. Chest x-ray showed no evidence of active disease, lungs are well aerated, no focal consolidation or infiltrate, endotracheal tube was noted to be high in the trachea and it will be advanced down 2 cm at least. His labs including his CBC and basic metabolic profile are noted to be normal. Today we have attempted to wean off propofol and assess the patient could be weaned and extubated. However the patient became extremely agitated, restless, and he was biting on the endotracheal tube, and could not be sedated to properly ventilate him. Hence Nimbex was given in addition to higher dose of propofol and higher dose of fentanyl. After Nimbex, patient was noted to have significantly elevated blood pressure, and I was concerned about the possibility of underlying seizures mass by Nimbex, hence I recommended stopping the Nimbex immediately. I also recommended switching propofol to Versed and I have kept him on fentanyl at 2 mcg/kg/h. I have also recommended Ativan 2 mg IV push 1. That seemed to help significantly. In the meantime I have recommended neurological evaluation. Dr. Amato saw the patient, and discussed the issue of potential baclofen overdose with the poison control. They were already notified about this patient upon admission, and the recommendation was supportive care measures only. They are still recommending supportive care measures, but they're also concerned about the possibility that baclofen has a long half-life, and if the patient chronically abuses baclofen, there is a concern about baclofen withdrawal well, and recommending at least small dose of baclofen to be given via nasogastric tube. And this was recommended by neurology on the case. In the meantime considering the patient has history of seizure disorder, Keppra was also added. Now the patient is on Versed which is being titrated, discontinued propofol, kept him on fentanyl, we will use Ativan intermittently as needed, Keppra was added by neurology. And recommended Lioresal/baclofen via nasogastric tube 10 mg 3 times a day. Nimbex was discontinued. IV fluid was increased to 1 25 mL per hour. And the plan is to start patient on enteral feeding today. The patient was seen today 09/25/2019 in follow-up in the intensive care unit. He remains intubated and on the mechanical ventilator with settings of before meals plus. Tidal volume 500, respiratory rate 22, FiO2 100% and a PEEP of 8. Morning blood gases reveal a pCO2 of 89, CO2 of 40 and a pH is 7.4. Throughout the night he had issues with recurrent hypoxemia requiring the FiO2 to be increased to 100%, this was shortly after repositioning for a chest x-ray. He is currently sedated on propofol at 40 mcg/kg/m. Versed at 20 mg per hour. Fentanyl at 2.5 mcg/kg per hour. He is being nourished with vital AF at 50 MLS per hour. Goal is 57 ML's per hour. His EEG did reveal severe encephalopathy. He has been seen by neuro services. He is currently on baclofen and Keppra. Antibiotics in the form of Zosyn. Sputum culture revealed no growth. Chest x- ray reveals evidence of right pleural effusion and bilateral lower lobe infiltrates. White count 13.0. Hemoglobin 13.0. Sodium 136. Potassium 3.7. Chloride 108. Bicarb 23. Creatinine 0.75. Prolactin 22.5. He's had borderline blood pressures and borderline urine output. Objective - Vital Signs Vital signs: Vital Signs Temp 99.0 F 09/25/19 13:30 Pulse 71 09/25/19 14:00 Resp 22 09/25/19 14:00 BP 92/46 09/25/19 14:00 Pulse Ox 92 L 09/25/19 14:00 Intake & Output 09/24/19 09/25/19 09/25/19 18:59 06:59 18:59 Intake Total 1742.0 3027.054 3081.156 Output Total 236 593 2318 Balance 1192.0 2462.054 1351.156 Weight 108 kg 114.2 kg Intake: IV 1250 1500 2250 Piperacillin-Tazobactam 3 250 .375 gm In Sodium Chloride 0.9% 100 ml @ 25 mls/hr IVPB Q8H [facility] Rx#: [id number] Sodium Chloride 0.9% 1, 1250 1500 1000 000 ml @ 125 mls/hr IV . Q8H [facility] Rx#:[id number] Sodium Chloride 0.9% 1, 1000 000 ml @ 999 mls/hr IV . Q1H1M [facility] Rx#:[id number] Intake, IV Titration 162.0 787.054 281.156 Amount Midazolam HCl 200 mg In 50.0 88.042 72.708 Sodium Chloride 0.9% 60 ml @ 10 MG/HR 5 mls/hr IV .Q20H [facility] Rx#:[id number] Midazolam HCl 50 mg In 7.5 Sodium Chloride 0.9% 40 ml @ 10 MG/HR 10 mls/hr IV .Q5H [facility] Rx#:[id number] Piperacillin-Tazobactam 3 200 .375 gm In Sodium Chloride 0.9% 100 ml @ 25 mls/hr IVPB Q8H [facility] Rx#: [id number] Propofol 1,000 mg In 100 Empty Bag 1 bag @ Titrate IV .Q0M [facility] Rx#: [id number] Propofol 1,000 mg In 115.552 84.448 Empty Bag 1 bag @ Titrate IV .Q0M [facility] Rx#: [id number] Propofol 1,000 mg In 24 Empty Bag 1 bag @ Titrate IV .Q0M [facility] Rx#: [id number] fentaNYL (PF) 1,000 mcg 2 2 In Sodium Chloride 0.9% 80 ml @ Per Protocol IV . Q0M [facility] Rx#:[id number] fentaNYL (PF) 2,500 mcg 10 273.96 In Sodium Chloride 0.9% 200 ml @ Per Protocol IV .Q0M [facility] Rx#:[id number] levETIRAcetam IV 1,000 mg 100 100 In Saline 1 100ml.bag @ 400 mls/hr IVPB Q12H [facility] Rx#:[id number] Tube Feeding 330 640 550 Other 100 Output: Urine 468 455 2237 Other: Voiding Method Indwelling Catheter Indwelling Catheter Indwelling Catheter ABP, PAP, CO, CI - Last Documented Arterial Blood Pressure 90/43 - Exam GENERAL EXAM: Intubated, sedated 24-year-old male patient on the mechanical ventilator currently at 100% FiO2. HEAD: Normocephalic. EYES: Sluggish reaction of pupils, equal size. NOSE: Clear with pink turbinates. THROAT: Oral endotracheal and gastric tube secured in place. No erythema or exudates. NECK: No masses, no JVD. CHEST: No chest wall deformity. LUNGS: Equal air entry with few scattered rhonchi, crackles in the posterior bases. CVS: S1 and S2 normal with no audible murmur, regular rhythm. ABDOMEN: No hepatosplenomegaly, normal bowel sounds, no guarding or rigidity. SPINE: No scoliosis or deformity SKIN: No rashes. Multiple tattoos. CENTRAL NERVOUS SYSTEM: Sedated. No focal deficits, tone is normal in all 4 extremities. EXTREMITIES: There is a right groin triple-lumen catheter and arterial line in place. There is no peripheral edema. No clubbing, no cyanosis. Peripheral pulses are intact. - Labs CBC & Chem 7: 09/25/19 05:06 09/25/19 05:06 Labs: Abnormal Lab Results - Last 24 Hours (Table) 09/24/19 09/25/19 09/25/19 Range/Units 05:20 00:58 05:06 WBC 13.0 H (3.8-10.6) k/uL Neutrophils # 11.5 H (1.3-7.7) k/uL ABG pH 7.33 L (7.35-7.45) ABG pO2 46 L* (83-108) mmHg ABG Total CO2 25 H (19-24) mmol/L ABG O2 Saturation 79.3 L (94-97) % Sodium (137-145) mmol/L Chloride (98-107) mmol/L BUN (9-20) mg/dL Calcium (8.4-10.2) mg/dL C-Reactive Protein 17.3 H (<10.0) mg/L Total Protein (6.3-8.2) g/dL Albumin (3.5-5.0) g/dL Prolactin 22.5 H (2.1-17.7) ng/mL 09/25/19 09/25/19 Range/Units 05:06 08:11 WBC (3.8-10.6) k/uL Neutrophils # (1.3-7.7) k/uL ABG pH (7.35-7.45) ABG pO2 (83-108) mmHg ABG Total CO2 26 H (19-24) mmol/L ABG O2 Saturation 97.1 H (94-97) % Sodium 136 L (137-145) mmol/L Chloride 108 H (98-107) mmol/L BUN 8 L (9-20) mg/dL Calcium 7.9 L (8.4-10.2) mg/dL C-Reactive Protein (<10.0) mg/L Total Protein 5.3 L (6.3-8.2) g/dL Albumin 2.9 L (3.5-5.0) g/dL Prolactin (2.1-17.7) ng/mL Microbiology - Last 24 Hours (Table) 09/22/19 21:12 Gram Stain - Final Sputum Sputum Culture - Final Assessment and Plan Assessment: Drug overdose, this is baclofen overdose unless for otherwise. Possible baclofen withdrawal and difficult to wean from mechanical ventilation. History of alcohol abuse. History of substance abuse including methamphetamine, heroin, alcohol, and marijuana. Remote history of epilepsy. Acute respiratory failure, patient was supposedly intubated to protect his airways since he had an acute presentation of mental status change and up 10 days upon arrival to the ER. No documented hypoxic or hypercapnic respiratory failure on presentation. History of bronchial asthma, presently stable Acute metabolic encephalopathy/toxic encephalopathy secondary to drug overdose. Plan: The patient was seen and evaluated by Dr. Bush Chest x-ray, ABGs and labs reviewed Decrease the FiO2 to 55% Give 1 L fluid bolus If no improvement in urine output will get Lasix 40 mg IVP 1 Add norepinephrine to maintain mean arterial pressure of 65 Continue Zosyn Repeat chest x-ray, ABGs and labs in the a.m. Continue with current sedation Continue tube feedings EEG reviewed Neurology is on the case We'll continue to follow and make further recommendations based on his clinical status Critical care time not including procedures 42 minutes I, the cosigning physician, performed a history & physical examination of the patient. Lungs sounds with few scattered rhonchi, crackles in the bases. Maintaining good O2 saturations in the 90s on 55% FiO2 via the mechanical ventilator. I discussed the assessment and plan of care with my nurse practitioner, Sandy Pace. I attest to the above note as dictated by her.
--- NOTE | 2019-09-25 15:45 | P.PN ---
Subjective 24-year-old male is admitted when subsequently intubated secondary to possible drug overdose. Patient actually brought his friend for drug overdose once he is in the ER patient became more and more less responsive was subsequently remained intubated for protection of airway. Patient is presently on baseline when settings clinically doing well except for the agitation with the sedation off because of which patient is started on Precedex, most probably will be extubated later today as per the ER physician note patient had large amount of tequila and possibly to muscle relaxers urine drug screen is only positive for marijuana. There is a possibility that he and his friend who was also intubated may have used car fentanyl. 09/24/2019 Patient is seen and evaluated and follow-up and currently remains intubated on mechanical vent in the ICU and is being closely monitored. Silviculture Teacher following closely. Neurology consulted and pending at this time. Attempts at weaning off propofol this morning with increased agitation inviting an ET tube with extreme restlessness noted and patient was recently sedated with propofol. Patient also has fentanyl running. Awaiting toxicology report that was a send out today. Basic labs within normal limits. Sodium is currently 139 and creatinine is 0.87. Initiating enteral feeding today as patient remains intubated and will continue at this time. Possible drug overdose culprit to baclofen although pending report at this time. 09/25/2019 Patient remains intubated EEG showed severe encephalopathy neurology evaluated the patient patient apparently had remote history of seizures patient was started on antiseizure medications. Patient is on very high doses of propofol, Versed, fentanyl for sedation patient apparently will benefit from a continuous EEG monitoring, patient is presently on 100% FiO2 set up respiratory rate of 22 people of 8 that volume of 500 patient was resumed on baclofen to avoid baclofen withdrawal patient was started on Zosyn because of aspiration pneumonia patient has bilateral lower lobe infiltrates. Patient is on low-dose of Levophed and urine output is borderline normal, on normal saline of 1 25 mL per hour Review of systems: Unable to obtain due to his clinical condition All inpatient medications were reviewed and appropriate changes in these medic ations as dictated in the interval history and assessment and plan. Objective - Vital Signs Vital signs: Vital Signs Temp 99.0 F 09/25/19 13:30 Pulse 71 09/25/19 14:00 Resp 22 09/25/19 14:00 BP 92/46 09/25/19 14:00 Pulse Ox 92 L 09/25/19 14:00 Intake & Output 09/24/19 09/25/19 09/25/19 18:59 06:59 18:59 Intake Total 1742.0 3027.054 3300.376 Output Total 003 632 0242 Balance 1192.0 2462.054 1570.376 Weight 108 kg 114.2 kg Intake: IV 1250 1500 2250 Piperacillin-Tazobactam 3 250 .375 gm In Sodium Chloride 0.9% 100 ml @ 25 mls/hr IVPB Q8H [facility] Rx#: [id number] Sodium Chloride 0.9% 1, 1250 1500 1000 000 ml @ 125 mls/hr IV . Q8H [facility] Rx#:[id number] Sodium Chloride 0.9% 1, 1000 000 ml @ 999 mls/hr IV . Q1H1M [facility] Rx#:[id number] Intake, IV Titration 162.0 787.054 500.376 Amount Midazolam HCl 200 mg In 50.0 88.042 72.708 Sodium Chloride 0.9% 60 ml @ 10 MG/HR 5 mls/hr IV .Q20H [facility] Rx#:[id number] Midazolam HCl 50 mg In 7.5 Sodium Chloride 0.9% 40 ml @ 10 MG/HR 10 mls/hr IV .Q5H [facility] Rx#:[id number] Piperacillin-Tazobactam 3 200 .375 gm In Sodium Chloride 0.9% 100 ml @ 25 mls/hr IVPB Q8H [facility] Rx#: [id number] Propofol 1,000 mg In 100 Empty Bag 1 bag @ Titrate IV .Q0M [facility] Rx#: [id number] Propofol 1,000 mg In 115.552 84.448 Empty Bag 1 bag @ Titrate IV .Q0M [facility] Rx#: [id number] Propofol 1,000 mg In 24 Empty Bag 1 bag @ Titrate IV .Q0M [facility] Rx#: [id number] fentaNYL (PF) 1,000 mcg 2 2 In Sodium Chloride 0.9% 80 ml @ Per Protocol IV . Q0M [facility] Rx#:[id number] fentaNYL (PF) 2,500 mcg 10 273.96 219.22 In Sodium Chloride 0.9% 200 ml @ Per Protocol IV .Q0M [facility] Rx#:[id number] levETIRAcetam IV 1,000 mg 100 100 In Saline 1 100ml.bag @ 400 mls/hr IVPB Q12H [facility] Rx#:[id number] Tube Feeding 330 640 550 Other 100 Output: Urine 217 823 3713 Other: Voiding Method Indwelling Catheter Indwelling Catheter Indwelling Catheter ABP, PAP, CO, CI - Last Documented Arterial Blood Pressure 90/43 - Exam GENERAL: 24-year-old male Intubated, continues on sedation, attempts at weaning today showed increased agitation and not following commands requiring sedation again. HEENT: Pupils are round and equally reacting to light. EOMI. No scleral icterus. No conjunctival pallor. Normocephalic, atraumatic. No pharyngeal erythema. No thyromegaly. CARDIOVASCULAR: S1 and S2 present. No murmurs, rubs, or gallops. PULMONARY: Chest is clear to auscultation, no wheezing or crackles. ABDOMEN: Soft, nondistended, normoactive bowel sounds. No palpable organomegaly. MUSCULOSKELETAL: No joint swelling or deformity. EXTREMITIES: No cyanosis, clubbing, or pedal edema. NEUROLOGICAL: Unable to assess on sedation SKIN: No rashes. Multiple tattoos noted - Labs CBC & Chem 7: 09/25/19 05:06 09/25/19 05:06 Labs: Abnormal Lab Results - Last 24 Hours (Table) 09/24/19 09/25/19 09/25/19 Range/Units 05: 00:58 05:06 WBC 13.0 H (3.8-10.6) k/uL Neutrophils # 11.5 H (1.3-7.7) k/uL ABG pH 7.33 L (7.35-7.45) ABG pO2 46 L* (83-108) mmHg ABG Total CO2 25 H (19-24) mmol/L ABG O2 Saturation 79.3 L (94-97) % Sodium (137-145) mmol/L Chloride (98-107) mmol/L BUN (9-20) mg/dL Calcium (8.4-10.2) mg/dL Total Protein (6.3-8.2) g/dL Albumin (3.5-5.0) g/dL Prolactin 22.5 H (2.1-17.7) ng/mL 09/25/19 09/25/19 Range/Units 05:06 08:11 WBC (3.8-10.6) k/uL Neutrophils # (1.3-7.7) k/uL ABG pH (7.35-7.45) ABG pO2 (83-108) mmHg ABG Total CO2 26 H (19-24) mmol/L ABG O2 Saturation 97.1 H (94-97) % Sodium 136 L (137-145) mmol/L Chloride 108 H (98-107) mmol/L BUN 8 L (9-20) mg/dL Calcium 7.9 L (8.4-10.2) mg/dL Total Protein 5.3 L (6.3-8.2) g/dL Albumin 2.9 L (3.5-5.0) g/dL Prolactin (2.1-17.7) ng/mL Microbiology - Last 24 Hours (Table) 09/22/19 21:12 Gram Stain - Final Sputum Sputum Culture - Final Assessment and Plan Plan: -Altered mental status, toxic encephalopathy secondary to drug overdose actual drug the patient overdosed on is not clear as mentioned in interval history although culprit may be baclofen and send out toxicology pending at this time as it was sent out , patient is requiring high amount of sedation patient was resumed on baclofen toward withdrawals as mentioned above. -Acute respiratory failure, patient does have acute hypoxic and hypercapnic respiratory failure. Patient is an above-mentioned vent settings -Toxic encephalopathy due to drug overdose -History of seizures in the past patient has some clonic activity because of which patient was resumed on antiseizure medications -Possible aspiration pneumonia for which patient was started on Zosyn. -History of asthma not in acute exacerbation patient does have history of smoking -Anxiety disorder Plan: Continue with close monitoring in the ICU and table assembler following. Neurology consulted and pending at this time. To continue with sedation as attempts at weaning resulted in severe agitation and restlessness requiring re-sedation. Further recommendations to follow. Awaiting toxicology send out report for possible baclofen overdose.
[2019-09-25] MEDS: ACETAMINOPHEN TAB 325 MG TAB PO PRN (21:40)
[2019-09-26] MEDS: levETIRAcetam IV 1,000 MG in SALINE 1 100ML.BAG IVPB SCH ×2 (00:53→14:19)
[2019-09-26] MEDS: PIPERACILLIN-TAZOBACTAM 3.375 GM in SODIUM CHLORIDE 0.9% 100 ML IVPB SCH ×3 (03:45→21:57)
[2019-09-26] MEDS: PROPOFOL 1,000 MG in EMPTY BAG 1 BAG IV SCH ×4 (03:46→21:46)
[2019-09-26] MEDS: SODIUM CHLORIDE 0.9% 1,000 ML IV SCH ×2 (03:46→12:51)
[2019-09-26] MEDS: fentaNYL (PF) 2,500 MCG in SODIUM CHLORIDE 0.9% 200 ML IV SCH ×2 (03:47→15:32)
[2019-09-26 06:18] LABS: Basophils # (A) 0.1 k/uL (0-0.2); Basophils % (A) 1 %; Eosinophils # (A) 0.2 k/uL (0-0.7); Eosinophils % (A) 2 %; HCT 37.3 % (39.0-53.0); Lymphocytes # (A) 0.9 k/uL (1.0-4.8); Lymphocytes % (A) 10 %; MCH 30.1 pg (25.0-35.0); MCHC 32.2 g/dL (31.0-37.0); MCV 93.4 fL (80.0-100.0); Mean Platelet Volume 8.3; Monocytes # (A) 0.5 k/uL (0-1.0); Monocytes % (A) 5 %; Neutrophils # (A) 7.7 k/uL (1.3-7.7); Neutrophils % (A) 81 %; Platelet Count 151 k/uL (150-450); RBC 3.99 m/uL (4.30-5.90); RDW 12.8 % (11.5-15.5); WBC 9.5 k/uL (3.8-10.6)
[2019-09-26 06:32] LABS: ALT 14 U/L (4-49); AST 14 U/L (17-59); African American GFR (CKD) >90 (>60 ml/min/1.73 sqM); Albumin 2.6 g/dL (3.5-5.0); Alkaline Phosphatase 70 U/L (38-126); Anion Gap 5 mmol/L; Blood Urea Nitrogen 5 mg/dL (9-20); Carbon Dioxide 24 mmol/L (22-30); Chloride 111 mmol/L (98-107); Glucose 106 mg/dL (74-99); Non-African American GFR(CKD) >90 (>60 ml/min/1.73 sqM); Potassium 3.9 mmol/L (3.5-5.1); Sodium 140 mmol/L (137-145); Total Bilirubin 0.4 mg/dL (0.2-1.3); Total Protein 5.1 g/dL (6.3-8.2)
--- NOTE | 2019-09-26 06:33 | XR ---
EXAMINATION TYPE: XR chest 1V portable DATE OF EXAM: 09/26/2019 HISTORY: Tube placement. REFERENCE: Previous study dated 09/25/2019. FINDINGS: The patient's ET tube and NG tube remain in place, unchanged in appearance. There are worsening bilateral effusions. Heart size is mildly prominent. There is bibasilar airspace disease. IMPRESSION: 1. WORSENING BIBASILAR AIRSPACE DISEASE. 2. WORSENING BILATERAL EFFUSIONS.
[2019-09-26 07:18] LABS: ABG Base Excess -0.5 mmol/L; ABG HCO3 25 mmol/L (21-25); ABG Oxygen Saturation 94.9 % (94-97); ABG PCO2 48 mmHg (35-45); ABG PH 7.33 (7.35-7.45); ABG PO2 77 mmHg (83-108); ABG TCO2 27 mmol/L (19-24); Allen Test Performed? Yes
[2019-09-26] MEDS ORDERED: POTASSIUM BICARBONATE/CIT AC 20 MEQ TABLET.EFF NG-TUBE SCH ×2 (08:00→17:00)
[2019-09-26] MEDS: BACLOFEN 10 MG TAB PEG/G-TUBE SCH ×3 (08:13→21:53)
[2019-09-26] MEDS: HEPARIN SODIUM,PORCINE 5,000 UNIT/ML 1 ML VIAL SQ SCH ×2 (08:13→21:52)
[2019-09-26] MEDS: PANTOPRAZOLE 40 MG/10 ML VIAL IV SCH (08:13)
[2019-09-26] MEDS: MIDAZOLAM HCL 200 MG in SODIUM CHLORIDE 0.9% 60 ML IV SCH ×2 (08:17→18:10)
[2019-09-26] MEDS ORDERED: FUROSEMIDE 10 MG/ML 4 ML VIAL IV STA (09:14)
--- NOTE | 2019-09-26 12:06 | P.PN ---
Subjective Progress Note Date: 09/26/19 Principal diagnosis: Drug overdose, suspected baclofen overdose This is a 24-year-old white male, admitted last night from the ER. Patient presented to the ER after he had a large amount of tequila along with muscle relaxers. It is not clear whether the patient used any undetectable opioid in the drug screen, possibly carfentanyl. Apparently when the patient was brought into the ER, he was obtunded, had altered mental status, no obvious injuries were noted. Patient had to be intubated almost as soon as he was brought in by EMS to the ER. According to EMS he was only responsive to deep painful stimuli. Received Narcan with no change whatsoever in his mental status, he did have episodes of extreme agitation on the way to the emergency room. Another friend had similar symptoms upon arrival to the ER, and both were intubated immediately. A drug screen came back showing mostly positive for marijuana. Otherwise the drug screen was completely negative. At any rate patient was intubated, placed on mechanical ventilation, and I saw him this morning. Presently on propofol. His ventilator settings are assist control rate of 20 FiO2 is 30% PEEP is 5 tidal volume is 500. ABG this morning showed a pO2 of 159 pCO2 of 41 pH of 7.42. Patient was quite sedated, however as soon as the propofol was discontinued, patient woke up but extremely agitated, unable to follow any instructions, unable to maintain any eye contact, hence no further plans for weaning or extubation were considered at that point. Patient will be tried on Precedex, and if not tolerated, may switch him back to propofol for the next 24 hours. Chest x-ray showed no evidence of active disease. Patient was reevaluated today on 09/24/19, remains in the ICU, intubated and mechanically ventilated. Patient is on assist control rate of 20 tidal volume is 500 FiO2 is 40% and PEEP of 5. His ABG today showed a pO2 of 82 pCO2 of 41 pH of 7.42. Chest x-ray showed no evidence of active disease, lungs are well aerated, no focal consolidation or infiltrate, endotracheal tube was noted to be high in the trachea and it will be advanced down 2 cm at least. His labs including his CBC and basic metabolic profile are noted to be normal. Today we have attempted to wean off propofol and assess the patient could be weaned and extubated. However the patient became extremely agitated, restless, and he was biting on the endotracheal tube, and could not be sedated to properly ventilate him. Hence Nimbex was given in addition to higher dose of propofol and higher dose of fentanyl. After Nimbex, patient was noted to have significantly elevated blood pressure, and I was concerned about the possibility of underlying seizures mass by Nimbex, hence I recommended stopping the Nimbex immediately. I also recommended switching propofol to Versed and I have kept him on fentanyl at 2 mcg/kg/h. I have also recommended Ativan 2 mg IV push 1. That seemed to help significantly. In the meantime I have recommended neurological evaluation. Dr. Amato saw the patient, and discussed the issue of potential baclofen overdose with the poison control. They were already notified about this patient upon admission, and the recommendation was supportive care measures only. They are still recommending supportive care measures, but they're also concerned about the possibility that baclofen has a long half-life, and if the patient chronically abuses baclofen, there is a concern about baclofen withdrawal well, and recommending at least small dose of baclofen to be given via nasogastric tube. And this was recommended by neurology on the case. In the meantime considering the patient has history of seizure disorder, Keppra was also added. Now the patient is on Versed which is being titrated, discontinued propofol, kept him on fentanyl, we will use Ativan intermittently as needed, Keppra was added by neurology. And recommended Lioresal/baclofen via nasogastric tube 10 mg 3 times a day. Nimbex was discontinued. IV fluid was increased to 1 25 mL per hour. And the plan is to start patient on enteral feeding today. The patient was seen today 09/25/2019 in follow-up in the intensive care unit. He remains intubated and on the mechanical ventilator with settings of before meals plus. Tidal volume 500, respiratory rate 22, FiO2 100% and a PEEP of 8. Morning blood gases reveal a pCO2 of 89, CO2 of 40 and a pH is 7.4. Throughout the night he had issues with recurrent hypoxemia requiring the FiO2 to be increased to 100%, this was shortly after repositioning for a chest x-ray. He is currently sedated on propofol at 40 mcg/kg/m. Versed at 20 mg per hour. Fentanyl at 2.5 mcg/kg per hour. He is being nourished with vital AF at 50 MLS per hour. Goal is 57 ML's per hour. His EEG did reveal severe encephalopathy. He has been seen by neuro services. He is currently on baclofen and Keppra. Antibiotics in the form of Zosyn. Sputum culture revealed no growth. Chest x-ray reveals evidence of right pleural effusion and bilateral lower lobe infiltrates. White count 13.0. Hemoglobin 13.0. Sodium 136. Potassium 3.7. Chloride 108. Bicarb 23. Creatinine 0.75. Prolactin 22.5. He's had borderline blood pressures and borderline urine output. Reevaluated today on 09/26/19, patient remains in the intensive care unit, intubated, and mechanically ventilated. His ventilator settings are assist control rate of 22 tidal volume is 500 FiO2 is 50% and PEEP is 8. Chest x-ray is showing worsening bilateral airspace disease, and possibly a right-sided pleural effusion. Patient is still requiring significant amount of sedation, he is on Versed at 20 mg per hour, propofol at 60 mcg/kg/m, fentanyl at 2 mcg/kg/h, and he is on norepinephrine at 0.03 mcg/kg/m. His IV fluid is at 1 25 mL per hour in the form of 0.9 normal saline. Patient gets extreme agitation on lower sedation, and he did not have good tolerance to Nimbex. His temperature seems to be fluctuating up and down, at one point he was receiving Tylenol for high elevated temperature, and now he is on cooling blankets for low and pressure with a temp of 95. I recommended serum cortisol level to be checked. I have also recommended that we continue Zosyn, Lasix was ordered today because of his bilateral pleural effusions, I have increased his rate to 24, and cut down his IV fluid to 75 mL per hour. No plans to wean the patient today as he is not ready. Previous attempts to wean the patient revealed that the patient is extremely agitated, gets quite restless, and takes at least 4 people to hold him down although he is on sedatives and narcotics for sedation. Labs today showed a pO2 of 77 pCO2 of 48 pH of 7.33 hence his respiratory rate was increased to 24. His electrolytes are normal renal profile is normal CBC is relatively normal. Objective - Vital Signs Vital signs: Vital Signs Temp 99.0 F 09/26/19 10:30 Pulse 71 09/26/19 11:00 Resp 24 09/26/19 11:00 BP 117/62 09/26/19 11:00 Pulse Ox 90 L 09/26/19 11:00 Intake & Output 09/25/19 09/26/19 09/26/19 18:59 06:59 18:59 Intake Total 4171.376 3007.413 1124 Output Total 1955 1465 1915 Balance 2216.376 1542.413 -791 Weight 114.2 kg 119 kg Intake: IV 2850 1600 525 Piperacillin-Tazobactam 3 350 100 .375 gm In Sodium Chloride 0.9% 100 ml @ 25 mls/hr IVPB Q8H [facility] Rx#: [id number] Sodium Chloride 0.9% 1, 1500 1500 525 000 ml @ 75 mls/hr IV . [id number] [facility] Rx#:[id number] Sodium Chloride 0.9% 1, 1000 000 ml @ 999 mls/hr IV . Q1H1M [facility] Rx#:[id number] Intake, IV Titration 600.376 576.413 200 Amount Midazolam HCl 200 mg In 72.708 100 Sodium Chloride 0.9% 60 ml @ 10 MG/HR 5 mls/hr IV .Q20H [facility] Rx#:[id number] Norepinephrine 32 mg In 26.413 Sodium Chloride 0.9% 218 ml @ 0.05 MCG/KG/MIN 2. 677 mls/hr IV .Q24H [facility] Rx#:[id number] Piperacillin-Tazobactam 3 100 .375 gm In Sodium Chloride 0.9% 100 ml @ 25 mls/hr IVPB Q8H [facility] Rx#: [id number] Propofol 1,000 mg In 184.448 200.000 100 Empty Bag 1 bag @ Titrate IV .Q0M [facility] Rx#: [id number] Propofol 1,000 mg In 24 Empty Bag 1 bag @ Titrate IV .Q0M [facility] Rx#: [id number] fentaNYL (PF) 2,500 mcg 219.22 250 In Sodium Chloride 0.9% 200 ml @ Per Protocol IV .Q0M [facility] Rx#:[id number] levETIRAcetam IV 1,000 mg 100 In Saline 1 100ml.bag @ 400 mls/hr IVPB Q12H [facility] Rx#:[id number] Tube Feeding 721 741 399 Other 90 Output: Urine 1954 1464 1914 Other: Voiding Method Indwelling Catheter Indwelling Catheter Indwelling Catheter ABP, PAP, CO, CI - Last Documented Arterial Blood Pressure 108/48 - Exam Physical Exam: Revealed 24-year-old white male on mechanical ventilation. Sedated with Versed, and fentanyl. Head: Atraumatic, normocephalic. Endotracheal tube and orogastric tube are intact. HEENT:[Neck is supple.] [No neck masses.] [No thyromegaly.] [No JVD.] Moist mucous membranes PERRLA, EOMI. Chest: [Symmetrical chest expansion, diminished breath sounds and crackles at the bases. Cardiac Exam: [Normal S1 and S2, no S3 gallop, no murmur.] Abdomen: [Soft, nontender, no megaly, no rebound, no guarding, normal bowel s ounds.] Extremities: [No clubbing, no edema, no cyanosis.] Neurological Exam: Not assessed today, patient is requiring significant amount of sedation to control his profound agitation intermittently once sedation is cut down even briefly. Psychiatric: Could not be assessed. Skin: Multiple tattoos otherwise unremarkable. Lymphatics: No lymphadenopathy. - Labs CBC & Chem 7: 09/26/19 06:00 09/26/19 06:00 Labs: Abnormal Lab Results - Last 24 Hours (Table) 09/26/19 09/26/19 09/26/19 Range/Units 06:00 06:00 07:17 RBC 3.99 L (4.30-5.90) m/uL Hgb 12.0 L (13.0-17.5) gm/dL Hct 37.3 L (39.0-53.0) % Lymphocytes # 0.9 L (1.0-4.8) k/uL ABG pH 7.33 L (7.35-7.45) ABG pCO2 48 H (35-45) mmHg ABG pO2 77 L (83-108) mmHg ABG Total CO2 27 H (19-24) mmol/L Chloride 111 H (98-107) mmol/L BUN 5 L (9-20) mg/dL Creatinine 0.54 L (0.66-1.25) mg/dL Glucose 106 H (74-99) mg/dL Calcium 8.0 L (8.4-10.2) mg/dL AST 14 L (17-59) U/L Total Protein 5.1 L (6.3-8.2) g/dL Albumin 2.6 L (3.5-5.0) g/dL Microbiology - Last 24 Hours (Table) 09/22/19 21:12 Gram Stain - Final Sputum Sputum Culture - Final Assessment and Plan Assessment: Impression: Drug overdose, this is baclofen overdose unless for otherwise. Possible baclofen withdrawal and difficult to wean from mechanical ventilation. History of alcohol abuse. History of substance abuse including methamphetamine, heroin, alcohol, and marijuana. Remote history of epilepsy. Acute respiratory failure, patient was supposedly intubated to protect his airways since he had an acute presentation of mental status change upon arrival to the ER. No documented hypoxic or hypercapnic respiratory failure on presentation. History of bronchial asthma, presently stable Acute metabolic encephalopathy/toxic encephalopathy secondary to drug overdose. Strongly suspect aspiration pneumonia with worsening chest x-ray as noted today. Hence the patient will remain on Zosyn. Recommendation: Continue ventilatory support. No weaning trials to be done today. Continue hemodynamic support. Patient is on a small dose of norepinephrine I believe his low blood pressure is mostly related to significant amount of sedation to keep him down. Continue GI and DVT prophylaxis Continue Zosyn for presumptive aspiration pneumonia.. Neurology to continue to follow on this patient. Not quite ready for weaning today continue present supportive care measures. Patient to be placed on alcohol withdrawal precautions post extubation. Continue thiamine Critical care time is 34 minutes. We'll continue to follow. Time with Patient: Greater than 30
[2019-09-26] MEDS: THIAMINE 100 MG/ML 2 ML VIAL IVP SCH (12:50)
[2019-09-26] MEDS: NOREPINEPHRINE 32 MG in SODIUM CHLORIDE 0.9% 218 ML IV SCH (14:18)
[2019-09-26] MEDS ORDERED: VANCOMYCIN IV PER PHARMACY 1 EACH MISC MISCELLANE PRN (15:35)
[2019-09-26] MEDS ORDERED: VANCOMYCIN 1,500 MG in SODIUM CHLORIDE 0.9% 250 ML IVPB ONE (15:35)
--- NOTE | 2019-09-26 15:50 | P.PN ---
Subjective 24-year-old male is admitted when subsequently intubated secondary to possible drug overdose. Patient actually brought his friend for drug overdose once he is in the ER patient became more and more less responsive was subsequently remained intubated for protection of airway. Patient is presently on baseline when settings clinically doing well except for the agitation with the sedation off because of which patient is started on Precedex, most probably will be extubated later today as per the ER physician note patient had large amount of tequila and possibly to muscle relaxers urine drug screen is only positive for marijuana. There is a possibility that he and his friend who was also intubated may have used car fentanyl. 09/24/2019 Patient is seen and evaluated and follow-up and currently remains intubated on mechanical vent in the ICU and is being closely monitored. Health Systems Analyst following closely. Neurology consulted and pending at this time. Attempts at weaning off propofol this morning with increased agitation inviting an ET tube with extreme restlessness noted and patient was recently sedated with propofol. Patient also has fentanyl running. Awaiting toxicology report that was a send out today. Basic labs within normal limits. Sodium is currently 139 and creatinine is 0.87. Initiating enteral feeding today as patient remains intubated and will continue at this time. Possible drug overdose culprit to baclofen although pending report at this time. 09/25/2019 Patient remains intubated EEG showed severe encephalopathy neurology evaluated the patient patient apparently had remote history of seizures patient was started on antiseizure medications. Patient is on very high doses of propofol, Versed, fentanyl for sedation patient apparently will benefit from a continuous EEG monitoring, patient is presently on 100% FiO2 set up respiratory rate of 22 people of 8 that volume of 500 patient was resumed on baclofen to avoid baclofen withdrawal patient was started on Zosyn because of aspiration pneumonia patient has bilateral lower lobe infiltrates. Patient is on low-dose of Levophed and urine output is borderline normal, on normal saline of 1 25 mL per hour 09/26/2019 Patient still remains an above-mentioned the sedatives still high doses. Patient has hypothermia followed by hypothermia will do marin cultures again including blood cultures sputum cultures from his very thick urine cultures urine output is fairly good patient is on IV fluids vancomycin will be added. Review of systems: Unable to obtain due to his clinical condition All inpatient medications were reviewed and appropriate changes in these medications as dictated in the interval history and assessment and plan. Objective - Vital Signs Vital signs: Vital Signs Temp 101.1 F H 09/26/19 14:30 Pulse 80 09/26/19 15:00 Resp 10 L 09/26/19 15:00 BP 113/57 09/26/19 15:00 Pulse Ox 91 L 09/26/19 15:00 Intake & Output 09/25/19 09/26/19 09/26/19 18:59 06:59 18:59 Intake Total 4171.376 3007.413 2099.118 Output Total 1955 1465 3170 Balance 2216.376 1542.413 -1070.882 Weight 114.2 kg 119 kg Intake: IV 2850 1600 825 Piperacillin-Tazobactam 3 350 100 .375 gm In Sodium Chloride 0.9% 100 ml @ 25 mls/hr IVPB Q8H [facility] Rx#: [id number] Sodium Chloride 0.9% 1, 1500 1500 825 000 ml @ 75 mls/hr IV . [id number] [facility] Rx#:[id number] Sodium Chloride 0.9% 1, 1000 000 ml @ 999 mls/hr IV . Q1H1M [facility] Rx#:[id number] Intake, IV Titration 600.376 576.413 560.118 Amount Midazolam HCl 200 mg In 72.708 100 Sodium Chloride 0.9% 60 ml @ 10 MG/HR 5 mls/hr IV .Q20H [facility] Rx#:[id number] Norepinephrine 32 mg In 26.413 10.118 Sodium Chloride 0.9% 218 ml @ 0.05 MCG/KG/MIN 2. 677 mls/hr IV .Q24H [facility] Rx#:[id number] Piperacillin-Tazobactam 3 100 .375 gm In Sodium Chloride 0.9% 100 ml @ 25 mls/hr IVPB Q8H [facility] Rx#: [id number] Propofol 1,000 mg In 184.448 200.000 100 Empty Bag 1 bag @ Titrate IV .Q0M [facility] Rx#: [id number] Propofol 1,000 mg In 24 Empty Bag 1 bag @ Titrate IV .Q0M [facility] Rx#: [id number] fentaNYL (PF) 2,500 mcg 219.22 250 250 In Sodium Chloride 0.9% 200 ml @ Per Protocol IV .Q0M [facility] Rx#:[id number] levETIRAcetam IV 1,000 mg 100 100 In Saline 1 100ml.bag @ 400 mls/hr IVPB Q12H [facility] Rx#:[id number] Tube Feeding 721 741 684 Other 90 30 Output: Urine 5 1465 3170 Other: Voiding Method Indwelling Catheter Indwelling Catheter Indwelling Catheter ABP, PAP, CO, CI - Last Documented Arterial Blood Pressure 115/51 - Exam GENERAL: 24-year-old male Intubated, continues on sedation, attempts at weaning today showed increased agitation and not following commands requiring sedation again. HEENT: Pupils are round and equally reacting to light. EOMI. No scleral icterus. No conjunctival pallor. Normocephalic, atraumatic. No pharyngeal erythema. No thyromegaly. CARDIOVASCULAR: S1 and S2 present. No murmurs, rubs, or gallops. PULMONARY: Chest is clear to auscultation, no wheezing or crackles. ABDOMEN: Soft, nondistended, normoactive bowel sounds. No palpable organomegaly. MUSCULOSKELETAL: No joint swelling or deformity. EXTREMITIES: No cyanosis, clubbing, or pedal edema. NEUROLOGICAL: Unable to assess on sedation SKIN: No rashes. Multiple tattoos noted - Labs CBC & Chem 7: 09/26/19 06:00 09/26/19 06:00 Labs: Abnormal Lab Results - Last 24 Hours (Table) 09/26/19 09/26/19 09/26/19 Range/Units 06:00 06:00 07:17 RBC 3.99 L (4.30-5.90) m/uL Hgb 12.0 L (13.0-17.5) gm/dL Hct 37.3 L (39.0-53.0) % Lymphocytes # 0.9 L (1.0-4.8) k/uL ABG pH 7.33 L (7.35-7.45) ABG pCO2 48 H (35-45) mmHg ABG pO2 77 L (83-108) mmHg ABG Total CO2 27 H (19-24) mmol/L Chloride 111 H (98-107) mmol/L BUN 5 L (9-20) mg/dL Creatinine 0.54 L (0.66-1.25) mg/dL Glucose 106 H (74-99) mg/dL Calcium 8.0 L (8.4-10.2) mg/dL AST 14 L (17-59) U/L Total Protein 5.1 L (6.3-8.2) g/dL Albumin 2.6 L (3.5-5.0) g/dL Assessment and Plan Plan: -Altered mental status, toxic encephalopathy secondary to drug overdose actual drug the patient overdosed on is not clear as mentioned in interval history although culprit may be baclofen and send out toxicology pending at this time as it was sent out , patient is requiring high amount of sedation patient was resumed on baclofen toward withdrawals as mentioned above. -Acute respiratory failure, patient does have acute hypoxic and hypercapnic respiratory failure. Patient is an above-mentioned vent settings -Toxic encephalopathy due to drug overdose -History of seizures in the past patient has some clonic activity because of w hich patient was resumed on antiseizure medications -Possible aspiration pneumonia for which patient patient was Zosyn which will be continued use to have hypothermia and hyperthermia episodes vancomycin will be added pancultures will be obtained again -History of asthma not in acute exacerbation patient does have history of smoking -Anxiety disorder
[2019-09-26 16:05] LABS: Appearance,Urine Clear (Clear); Bilirubin,Urine Negative (Negative); Blood,Urine Negative (Negative); Color,Urine Yellow; Glucose,Urine (UA) Negative (Negative); Ketones,Urine Negative (Negative); Leukocyte Esterase,Urine Negative (Negative); Nitrite,Urine Negative (Negative); Protein,Urine Trace (Negative); Specific Gravity,Urine 1.027 (1.001-1.035); Urobilinogen,Urine <2.0 mg/dL (<2.0)
[2019-09-26] MEDS: ACETAMINOPHEN TAB 325 MG TAB PO PRN (16:40)
[2019-09-26] MEDS ORDERED: Potassium Replacement Protocol 1 EACH MISC MISCELLANE PRN (16:47)
[2019-09-26] MEDS: VANCOMYCIN 2,000 MG in SODIUM CHLORIDE 0.9% 500 ML 500 ML IVPB SCH (16:57)
[2019-09-27] MEDS: PROPOFOL 1,000 MG in EMPTY BAG 1 BAG IV SCH ×6 (00:03→23:24)
[2019-09-27] MEDS: levETIRAcetam IV 1,000 MG in SALINE 1 100ML.BAG IVPB SCH ×2 (03:10→12:25)
[2019-09-27] MEDS: VANCOMYCIN 2,000 MG in SODIUM CHLORIDE 0.9% 500 ML 500 ML IVPB SCH ×2 (03:29→08:18)
[2019-09-27] MEDS: SODIUM CHLORIDE 0.9% 1,000 ML IV SCH ×2 (03:37→17:36)
[2019-09-27] MEDS: fentaNYL (PF) 2,500 MCG in SODIUM CHLORIDE 0.9% 200 ML IV SCH ×2 (03:39→14:30)
[2019-09-27] MEDS: MIDAZOLAM HCL 200 MG in SODIUM CHLORIDE 0.9% 60 ML IV SCH ×2 (03:41→12:16)
[2019-09-27 04:20] LABS: Basophils % (A) 0 %; Eosinophils # (A) 0.2 k/uL (0-0.7); Eosinophils % (A) 3 %; HCT 35.2 % (39.0-53.0); HGB 11.5 gm/dL (13.0-17.5); Lymphocytes # (A) 0.9 k/uL (1.0-4.8); Lymphocytes % (A) 11 %; MCH 29.8 pg (25.0-35.0); MCHC 32.6 g/dL (31.0-37.0); MCV 91.4 fL (80.0-100.0); Mean Platelet Volume 8.7; Monocytes # (A) 0.3 k/uL (0-1.0); Monocytes % (A) 4 %; Neutrophils # (A) 6.2 k/uL (1.3-7.7); Neutrophils % (A) 80 %; Platelet Count 173 k/uL (150-450); RBC 3.85 m/uL (4.30-5.90); RDW 12.7 % (11.5-15.5); WBC 7.7 k/uL (3.8-10.6)
[2019-09-27 04:38] LABS: ALT 14 U/L (4-49); AST 15 U/L (17-59); African American GFR (CKD) >90 (>60 ml/min/1.73 sqM); Albumin 2.6 g/dL (3.5-5.0); Alkaline Phosphatase 90 U/L (38-126); Anion Gap 4 mmol/L; Blood Urea Nitrogen 5 mg/dL (9-20); Calcium 8.3 mg/dL (8.4-10.2); Carbon Dioxide 27 mmol/L (22-30); Chloride 109 mmol/L (98-107); Glucose 103 mg/dL (74-99); Non-African American GFR(CKD) >90 (>60 ml/min/1.73 sqM); Potassium 3.8 mmol/L (3.5-5.1); Sodium 140 mmol/L (137-145); Total Bilirubin 0.5 mg/dL (0.2-1.3); Total Protein 5.2 g/dL (6.3-8.2)
[2019-09-27 04:57] LABS: ABG PH 7.38 (7.35-7.45); Allen Test Performed? NO
[2019-09-27 04:58] LABS: ABG Base Excess 2.4 mmol/L; ABG HCO3 27 mmol/L (21-25); ABG Oxygen Saturation 98.5 % (94-97); ABG PCO2 45 mmHg (35-45); ABG PO2 124 mmHg (83-108); ABG TCO2 29 mmol/L (19-24)
[2019-09-27] MEDS: PIPERACILLIN-TAZOBACTAM 3.375 GM in SODIUM CHLORIDE 0.9% 100 ML IVPB SCH ×3 (06:56→18:02)
--- NOTE | 2019-09-27 07:56 | XR ---
EXAMINATION TYPE: XR chest 1V portable DATE OF EXAM: 09/27/2019 COMPARISON: 09/26/2019 HISTORY: Ventilatory dependent respiratory failure. TECHNIQUE: Single frontal view of the chest is obtained. FINDINGS: Endotracheal tube terminates approximately 5 cm in the junito similar to the prior exam. A gain this is slightly cephalad in placement as stated on the prior 09/24/2019. There is redemonstration of a layering right pleural effusion and right basilar airspace disease. Left pleural effusion has r esolved as has left basilar airspace disease. Cardiomediastinal silhouette is in size but shifted to the right secondary to patient positioning. Enteric tube appears unchanged in position. IMPRESSION: 1. Resolved left pleural effusion and left basilar airspace disease. 2. Stable small right pleural effusion and right basilar airspace disease.
[2019-09-27] MEDS: PANTOPRAZOLE 40 MG/10 ML VIAL IV SCH (08:19)
[2019-09-27] MEDS: THIAMINE 100 MG/ML 2 ML VIAL IVP SCH (08:19)
[2019-09-27] MEDS: HEPARIN SODIUM,PORCINE 5,000 UNIT/ML 1 ML VIAL SQ SCH ×2 (08:19→22:09)
[2019-09-27] MEDS: POTASSIUM BICARBONATE/CIT AC 20 MEQ TABLET.EFF NG-TUBE SCH ×2 (08:20→12:24)
[2019-09-27] MEDS: BACLOFEN 10 MG TAB PEG/G-TUBE SCH ×3 (08:22→22:09)
[2019-09-27] MEDS: CHLORHEXIDINE GLUCONATE 15 ML CUP MUCOUS MEM SCH ×2 (09:24→22:09)
--- NOTE | 2019-09-27 12:06 | P.PN ---
Subjective Progress Note Date: 09/27/19 Patient is intubated, heavily sedated. Patient gets very agitated and restless when sedation is decreased. Currently he is on Versed 20 mg/h, fentanyl 2 mcg/kg/hr and propofol 40 g/kg/min. No seizure type event/activity noted. Objective - Vital Signs Vital signs: Vital Signs Temp 96.3 F L 09/27/19 08:00 Pulse 53 L 09/27/19 08:30 Resp 25 H 09/27/19 08:30 BP 116/58 09/27/19 08:30 Pulse Ox 94 L 09/27/19 08:30 Intake & Output 09/26/19 09/27/19 09/27/19 18:59 06:59 18:59 Intake Total 3342.635 3372.918 685.644 Output Total 3325 2210 200 Balance 17.635 1162.918 485.644 Weight 119 kg 117.5 kg Intake: IV 1050 2137 575 Fentanyl 220 Piperacillin-Tazobactam 3 75 .375 gm In Sodium Chloride 0.9% 100 ml @ 25 mls/hr IVPB Q8H [facility] Rx#: [id number] Sodium Chloride 0.9% 1, 1050 900 75 000 ml @ 75 mls/hr IV . [id number] [facility] Rx#:[id number] Vancomycin 832 Vancomycin 2,000 mg In 500 Sodium Chloride 0.9% 500 ml 500 ml @ 167 mls/hr IVPB Q8HR [facility] Rx#: [id number] Versed 110 Intake, IV Titration 1263.635 605.918 5.644 Amount Midazolam HCl 200 mg In 98.833 95.167 Sodium Chloride 0.9% 60 ml @ 10 MG/HR 5 mls/hr IV .Q20H [facility] Rx#:[id number] Norepinephrine 32 mg In 14.802 6.051 5.644 Sodium Chloride 0.9% 218 ml @ 0.05 MCG/KG/MIN 2. 677 mls/hr IV .Q24H [facility] Rx#:[id number] Piperacillin-Tazobactam 3 100 .375 gm In Sodium Chloride 0.9% 100 ml @ 25 mls/hr IVPB Q8H [facility] Rx#: [id number] Propofol 1,000 mg In 200 254.700 Empty Bag 1 bag @ Titrate IV .Q0M [facility] Rx#: [id number] Vancomycin 2,000 mg In 500 Sodium Chloride 0.9% 500 ml 500 ml @ 167 mls/hr IVPB Q8HR [facility] Rx#: [id number] fentaNYL (PF) 2,500 mcg 250 250 In Sodium Chloride 0.9% 200 ml @ Per Protocol IV .Q0M [facility] Rx#:[id number] levETIRAcetam IV 1,000 mg 100 In Saline 1 100ml.bag @ 400 mls/hr IVPB Q12H [facility] Rx#:[id number] Tube Feeding 969 570 75 Other 60 60 30 Output: Urine 3325 2210 200 Other: Voiding Method Indwelling Catheter Indwelling Catheter ABP, PAP, CO, CI - Last Documented Arterial Blood Pressure 116/50 - Exam Patient is sedated. Pupils are 3-4 mm, minimally reacting. Exam limited because of sedation. - Labs CBC & Chem 7: 09/27/19 04:10 09/27/19 04:10 Labs: Abnormal Lab Results - Last 24 Hours (Table) 09/26/19 09/27/19 09/27/19 Range/Units 15:50 04:10 04:10 RBC 3.85 L (4.30-5.90) m/uL Hgb 11.5 L (13.0-17.5) gm/dL Hct 35.2 L (39.0-53.0) % Lymphocytes # 0.9 L (1.0-4.8) k/uL ABG pO2 (83-108) mmHg ABG HCO3 (21-25) mmol/L ABG Total CO2 (19-24) mmol/L ABG O2 Saturation (94-97) % Chloride 109 H (98-107) mmol/L BUN 5 L (9-20) mg/dL Creatinine 0.52 L (0.66-1.25) mg/dL Glucose 103 H (74-99) mg/dL Calcium 8.3 L (8.4-10.2) mg/dL AST 15 L (17-59) U/L Total Protein 5.2 L (6.3-8.2) g/dL Albumin 2.6 L (3.5-5.0) g/dL Urine Protein Trace H (Negative) 09/27/19 Range/Units 04:44 RBC (4.30-5.90) m/uL Hgb (13.0-17.5) gm/dL Hct (39.0-53.0) % Lymphocytes # (1.0-4.8) k/uL ABG pO2 124 H (83-108) mmHg ABG HCO3 27 H (21-25) mmol/L ABG Total CO2 29 H (19-24) mmol/L ABG O2 Saturation 98.5 H (94-97) % Chloride (98-107) mmol/L BUN (9-20) mg/dL Creatinine (0.66-1.25) mg/dL Glucose (74-99) mg/dL Calcium (8.4-10.2) mg/dL AST (17-59) U/L Total Protein (6.3-8.2) g/dL Albumin (3.5-5.0) g/dL Urine Protein (Negative) Microbiology - Last 24 Hours (Table) 09/26/19 16:00 Gram Stain - Preliminary Sputum Sputum Culture - Preliminary Assessment and Plan Assessment: * Drug overdose with baclofen, possible Robaxin, some marijuana and alcohol. * History of substance abuse. * Ventilator-dependent respiratory failure, on mechanical ventilation. * Reported, remote history of seizure disorder. Plan: * Continue Keppra 1000 mg twice a day. * Patient to undergo sedation holidays soon. * Patient had an EEG, will review the results. * Neurology will follow. * Symptomatic treatment.
[2019-09-27] MEDS: NOREPINEPHRINE 32 MG in SODIUM CHLORIDE 0.9% 218 ML IV SCH (12:17)
--- NOTE | 2019-09-27 15:32 | PN ---
PROGRESS NOTE PULMONARY/CRITICAL CARE PROGRESS NOTE: DATE OF SERVICE: 09/27/2019 Critical care time 34 minutes. This is a 24-year-old male, status post drug overdose with suspected baclofen and/or Robaxin. The patient was apparently admitted on September 21 and intubated on September 21. Drug screen was only positive for THC. Currently he is on the volume assist-control mode rate of 24, tidal volume 500, FiO2 at 50%, to be dropped to 40%, and PEEP of 10 to be dropped to 5. Blood gases show a pO2 of 125, pCO2 of 45 and a pH of 7.38. The patient will have an EEG today. We will also do a daily interruption of sedation. The patient is currently on 0.9 at 75 mL/hour, norepinephrine at 0.02 mcg/kg per minute, propofol at 40 mcg/kg per minute, Versed drip of 20 mg/hour and fentanyl drip at 2 mcg/kg per hour. The patient is also receiving Vital AF with a goal of 57 mL/hour. Currently he is relatively stable. EEG is planned for today. With daily interruptions of sedation or if his medications start to run low, he becomes very agitated, according to the nurse. PHYSICAL EXAMINATION: VITAL SIGNS: Current vital signs are reviewed. Temperature is 96.3, heart rate 60, respiratory rate 25, blood pressure 116/58, mean 77. Saturations are 94% on the 40 FiO2 and PEEP of 5. Currently sedated. HEENT EXAMINATION: Grossly unremarkable. There is an orally placed endotracheal tube and NG tube. NECK: Supple. Full range of motion. No adenopathy or thyromegaly. Neck veins are flat. CARDIOVASCULAR: Examination reveals regular rhythm rate. Heart rate about 60 beats per minute. S1, S2 normal. Heart sounds are distant. LUNGS: Lungs reveal diffuse bilateral rhonchi. Breath sounds equal. No wheezes or crackles. ABDOMEN: Soft. Bowel sounds are heard. No masses or tenderness. EXTREMITIES: Intact. No edema. SKIN: Without rash. NEUROLOGIC: Neurologic examination is difficult to assess, as he is on propofol, Versed and fentanyl currently. CURRENT LABORATORY DATA: Current laboratory data include a white count 7.7, hemoglobin 11.5, hematocrit 35.2, platelet count 173,000. Blood gases have been noted. Vent changes have been made. Sodium 140, potassium 3.8, chloride 109, CO2 27. Anion gap is 4. BUN and creatinine were 5 and 0.52. Glucose 103, calcium 8.3, AST 15. Urine is negative. Chest x-ray from September 26 shows some minimal bibasilar airspace disease and/or atelectasis. Microbiology is negative. MEDICATIONS: Medications are reviewed. Currently the patient is on Tylenol, Artificial Tears, baclofen, chlorhexidine, fentanyl, subcutaneous heparin, Keppra, Ativan, midazolam, Narcan, norepinephrine, Protonix, Zosyn, potassium replacement protocol, propofol, thiamine and vancomycin. ASSESSMENT: 1. Acute hypoxemic respiratory failure secondary to drug overdose with suspected baclofen and/or Robaxin. 2. History of alcohol abuse. 3. History of substance abuse, including methamphetamines, heroin, alcohol and marijuana. 4. Remote history of seizure disorder. 5. Acute mental status changes secondary to drug overdose. 6. History of chronic bronchial asthma, stable. 7. Metabolic encephalopathy. 8. Suspected aspiration pneumonia. PLAN: The patient will have an EEG today. Will wake the patient up and do a daily interruption of sedation. Continue to wean his medications. We will see if we cannot wean the Levophed off. He currently remains on propofol, Versed and fentanyl. He is getting tube feeds at goal. He has GI and DVT prophylaxis. He is on Zosyn for presumed aspiration. Culture data is negative. Will discontinue vancomycin. Additional recommendations and suggestions are forthcoming. Critical care time 34 minutes. MMODL / LEONORN: [id number] /
[2019-09-27 18:15] LABS: Glucose,Whole Blood 95 mg/dL (75-99)
[2019-09-27] MEDS: ACETAMINOPHEN TAB 325 MG TAB PO PRN (22:15)
[2019-09-28] MEDS: levETIRAcetam IV 1,000 MG in SALINE 1 100ML.BAG IVPB SCH ×2 (00:23→13:41)
[2019-09-28] MEDS: PIPERACILLIN-TAZOBACTAM 3.375 GM in SODIUM CHLORIDE 0.9% 100 ML IVPB SCH ×3 (02:37→20:03)
[2019-09-28] MEDS: PROPOFOL 1,000 MG in EMPTY BAG 1 BAG IV SCH ×2 (03:00→06:07)
[2019-09-28] MEDS: ACETAMINOPHEN TAB 325 MG TAB PO PRN (04:29)
[2019-09-28 04:40] LABS: ALT 15 U/L (4-49); AST 18 U/L (17-59); African American GFR (CKD) >90 (>60 ml/min/1.73 sqM); Albumin 3.1 g/dL (3.5-5.0); Alkaline Phosphatase 119 U/L (38-126); Anion Gap 7 mmol/L; Blood Urea Nitrogen 7 mg/dL (9-20); Calcium 8.7 mg/dL (8.4-10.2); Carbon Dioxide 26 mmol/L (22-30); Chloride 107 mmol/L (98-107); Glucose 118 mg/dL (74-99); Non-African American GFR(CKD) >90 (>60 ml/min/1.73 sqM); Potassium 3.9 mmol/L (3.5-5.1); Sodium 140 mmol/L (137-145); Total Bilirubin 0.4 mg/dL (0.2-1.3)
[2019-09-28 04:41] LABS: Basophils % (A) 0 %; Eosinophils # (A) 0.1 k/uL (0-0.7); Eosinophils % (A) 1 %; HCT 40.1 % (39.0-53.0); HGB 13.1 gm/dL (13.0-17.5); Lymphocytes # (A) 0.5 k/uL (1.0-4.8); Lymphocytes % (A) 6 %; MCH 30.1 pg (25.0-35.0); MCHC 32.6 g/dL (31.0-37.0); MCV 92.2 fL (80.0-100.0); Mean Platelet Volume 8.1; Monocytes # (A) 0.3 k/uL (0-1.0); Monocytes % (A) 4 %; Neutrophils # (A) 8.5 k/uL (1.3-7.7); Neutrophils % (A) 89 %; Platelet Count 277 k/uL (150-450); RBC 4.35 m/uL (4.30-5.90); RDW 12.8 % (11.5-15.5); WBC 9.6 k/uL (3.8-10.6)
[2019-09-28 05:03] LABS: ABG HCO3 27 mmol/L (21-25); ABG Oxygen Saturation 95.8 % (94-97); ABG PCO2 39 mmHg (35-45); ABG PH 7.45 (7.35-7.45); ABG PO2 77 mmHg (83-108); ABG TCO2 28 mmol/L (19-24); Allen Test Performed? Yes
[2019-09-28 05:43] LABS: ABG PO2 46 mmHg (83-108)
[2019-09-28] MEDS: SODIUM CHLORIDE 0.9% 1,000 ML IV SCH ×2 (06:05→20:03)
[2019-09-28 06:31] LABS: Glucose,Whole Blood 111 mg/dL (75-99)
[2019-09-28] MEDS ORDERED: VANCOMYCIN TROUGH DUE 1 EACH MISC MISCELLANE ONE (07:00)
--- NOTE | 2019-09-28 07:35 | XR ---
EXAMINATION TYPE: XR chest 1V portable DATE OF EXAM: 09/28/2019 COMPARISON: 09/27/2019 HISTORY: SOB, Follow Up FINDINGS: Indwelling tubes and catheters are unchanged. Persistent right basilar infiltrate and/or atelectasis with underlying effusion. Increasing left low er lobe infiltrate. Stable appearance of the cardio-mediastinal structures at this time. IMPRESSION: 1. Persistent right basilar infiltrate and/or atelectasis with underlying effusion. Increasing left lower lobe infiltrate. Clinical correlation and follow up until resolution is recommended.
[2019-09-28] MEDS ORDERED: POTASSIUM BICARBONATE/CIT AC 20 MEQ TABLET.EFF NG-TUBE SCH (08:00)
--- NOTE | 2019-09-28 08:27 | P.PN ---
Subjective Progress Note Date: 09/27/19 Principal diagnosis: 24-year-old male is admitted when subsequently intubated secondary to possible drug overdose. Patient actually brought his friend for drug overdose once he is in the ER patient became more and more less responsive was subsequently remained intubated for protection of airway. Patient is presently on baseline when settings clinically doing well except for the agitation with the sedation off because of which patient is started on Precedex, most probably will be extubated later today as per the ER physician note patient had large amount of tequila and possibly to muscle relaxers urine drug screen is only positive for marijuana. There is a possibility that he and his friend who was also intubated may have used car fentanyl. 09/24/2019 Patient is seen and evaluated and follow-up and currently remains intubated on mechanical vent in the ICU and is being closely monitored. Chemical Processing Supervisor following closely. Neurology consulted and pending at this time. Attempts at weaning off propofol this morning with increased agitation inviting an ET tube with extreme restlessness noted and patient was recently sedated with propofol. Patient also has fentanyl running. Awaiting toxicology report that was a send out today. Basic labs within normal limits. Sodium is currently 139 and creatinine is 0.87. Initiating enteral feeding today as patient remains intubated and will continue at this time. Possible drug overdose culprit to baclofen although pending report at this time. 09/25/2019 Patient remains intubated EEG showed severe encephalopathy neurology evaluated the patient patient apparently had remote history of seizures patient was started on antiseizure medications. Patient is on very high doses of propofol, Versed, fentanyl for sedation patient apparently will benefit from a continuous EEG monitoring, patient is presently on 100% FiO2 set up respiratory rate of 22 people of 8 that volume of 500 patient was resumed on baclofen to avoid baclofen withdrawal patient was started on Zosyn because of aspiration pneumonia patient has bilateral lower lobe infiltrates. Patient is on low-dose of Levophed and urine output is borderline normal, on normal saline of 1 25 mL per hour 09/26/2019 Patient still remains an above-mentioned the sedatives still high doses. Patient has hypothermia followed by hypothermia will do marin cultures again including blood cultures sputum cultures from his very thick urine cultures urine output is fairly good patient is on IV fluids vancomycin will be added. Review of systems: Unable to obtain due to his clinical condition 09/27/2019 Patient is seen and evaluated in the ICU and is being closely monitored. Patient remains sedated and on mechanical vent. Patient remains on fentanyl and Versed along with propofol and is heavily sedated. Patient requiring levophed for blood pressure. Patient is to receive another EEG today. Neurology following. Patient was also initiated on Keppra and remains on baclofen at this time. Sputum cultures thus far have been showing some gram-positive bacilli and cocci. Blood cultures have been negative. Patient is currently on Zosyn and will continue at this time. Vancomycin has been discontinued. Repeat chest x- ray this morning shows a resolved left pleural effusion and left basilar airspace disease along with stable small right pleural effusion and right basilar airspace disease. Patient continues to be extremely agitated and restless and sedation vacation. No attempt at weaning today. Objective - Vital Signs Vital signs: Vital Signs Temp 96.3 F L 09/27/19 08:00 Pulse 53 L 09/27/19 08:30 Resp 25 H 09/27/19 08:30 BP 116/58 09/27/19 08:30 Pulse Ox 94 L 09/27/19 08:30 Intake & Output 09/26/19 09/27/19 09/27/19 18:59 06:59 18:59 Intake Total 3342.635 3472.918 771.477 Output Total 3325 2210 200 Balance 17.635 1262.918 571.477 Weight 119 kg 117.5 kg Intake: IV 1050 2137 575 Fentanyl 220 Piperacillin-Tazobactam 3 75 .375 gm In Sodium Chloride 0.9% 100 ml @ 25 mls/hr IVPB Q8H DAKSHA Rx#: [id number] Sodium Chloride 0.9% 1, 1050 900 75 000 ml @ 75 mls/hr IV . [id number] DAKSHA Rx#:[id number] Vancomycin 832 Vancomycin 2,000 mg In 500 Sodium Chloride 0.9% 500 ml 500 ml @ 167 mls/hr IVPB Q8HR DAKSHA Rx#: [id number] Versed 110 Intake, IV Titration 1263.635 705.918 91.477 Amount Midazolam HCl 200 mg In 98.833 95.167 85.833 Sodium Chloride 0.9% 60 ml @ 10 MG/HR 5 mls/hr IV .Q20H DAKSHA Rx#:[id number] Norepinephrine 32 mg In 14.802 6.051 5.644 Sodium Chloride 0.9% 218 ml @ 0.05 MCG/KG/MIN 2. 677 mls/hr IV .Q24H [facility]AK[facility] Rx#:[id number] Piperacillin-Tazobactam 3 100 .375 gm In Sodium Chloride 0.9% 100 ml @ 25 mls/hr IVPB Q8H [facility] Rx#: [id number] Propofol 1,000 mg In 200 354.700 Empty Bag 1 bag @ Titrate IV .Q0M DAKSHA Rx#: [id number] Vancomycin 2,000 mg In 500 Sodium Chloride 0.9% 500 ml 500 ml @ 167 mls/hr IVPB Q8HR [facility] Rx#: [id number] fentaNYL (PF) 2,500 mcg 250 250 In Sodium Chloride 0.9% 200 ml @ Per Protocol IV .Q0M D[facility] Rx#:[id number] levETIRAcetam IV 1,000 mg 100 In Saline 1 100ml.bag @ 400 mls/hr IVPB Q12H [facility]AK[facility] Rx#:[id number] Tube Feeding 969 570 75 Other 60 60 30 Output: Urine 3325 2210 200 Other: Voiding Method Indwelling Catheter Indwelling Catheter ABP, PAP, CO, CI - Last Documented Arterial Blood Pressure 116/50 - Exam GENERAL: 24-year-old male Intubated, continues on sedation, attempts at decreasing sedation showed increased agitation and not following commands. No attempt at extubation today. HEENT: Pupils are round and equally reacting to light. EOMI. No scleral icterus. No conjunctival pallor. Normocephalic, atraumatic. No pharyngeal erythema. No thyromegaly. CARDIOVASCULAR: S1 and S2 present. No murmurs, rubs, or gallops. PULMONARY: Chest is clear to auscultation, no wheezing or crackles. ABDOMEN: Soft, nondistended, normoactive bowel sounds. No palpable organomegaly. MUSCULOSKELETAL: No joint swelling or deformity. EXTREMITIES: No cyanosis, clubbing, or pedal edema. NEUROLOGICAL: Unable to assess on sedation SKIN: No rashes. Multiple tattoos noted - Labs CBC & Chem 7: 09/28/19 04:16 09/28/19 04:16 Labs: Abnormal Lab Results - Last 24 Hours (Table) 0509/27/19 09/27/19 Range/Units 04:10 04:10 04:44 RBC 3.85 L (4.30-5.90) m/uL Hgb 11.5 L (13.0-17.5) gm/dL Hct 35.2 L (39.0-53.0) % Lymphocytes # 0.9 L (1.0-4.8) k/uL ABG pO2 124 H (83-108) mmHg ABG HCO3 27 H (21-25) mmol/L ABG Total CO2 29 H (19-24) mmol/L ABG O2 Saturation 98.5 H (94-97) % Chloride 109 H (98-107) mmol/L BUN 5 L (9-20) mg/dL Creatinine 0.52 L (0.66-1.25) mg/dL Glucose 103 H (74-99) mg/dL Calcium 8.3 L (8.4-10.2) mg/dL AST 15 L (17-59) U/L Total Protein 5.2 L (6.3-8.2) g/dL Albumin 2.6 L (3.5-5.0) g/dL Microbiology - Last 24 Hours (Table) 09/26/19 16:00 Gram Stain - Preliminary Sputum Sputum Culture - Preliminary Assessment and Plan Assessment: -Altered mental status, toxic encephalopathy secondary to drug overdose actual drug the patient overdosed on is not clear as mentioned in interval history although culprit may be baclofen and send out toxicology pending at this time as it was sent out , patient is requiring high amount of sedation patient was resumed on baclofen toward withdrawals as mentioned above. Toxicology screen only showing marijuana. -Acute respiratory failure, patient does have acute hypoxic and hypercapnic respiratory failure. Patient is an above-mentioned vent settings -Toxic encephalopathy due to drug overdose -History of seizures in the past patient has some clonic activity because of which patient was resumed on antiseizure medications. Patient undergoing an EEG this morning. Pending results. -Possible aspiration pneumonia for which patient patient was Zosyn which will be continued use to have hypothermia and hyperthermia. Vancomycin discontinued. Blood Cultures remain negative. Sputum cultures preliminary showing gram- positive cocci -History of asthma not in acute exacerbation patient does have history of smoking -Anxiety disorder Plan: Continue with close monitoring in the ICU and jack spinner following. Neurology following. Awaiting a repeat EEG. Sedation holiday shows increased agitation and restlessness with no attempts of weaning today. Further recommendations to follow. Will continue to monitor closely.
[2019-09-28] MEDS: HEPARIN SODIUM,PORCINE 5,000 UNIT/ML 1 ML VIAL SQ SCH ×2 (08:47→20:03)
[2019-09-28] MEDS: BACLOFEN 10 MG TAB PEG/G-TUBE SCH ×3 (08:47→20:03)
[2019-09-28] MEDS: CHLORHEXIDINE GLUCONATE 15 ML CUP MUCOUS MEM SCH (08:47)
[2019-09-28] MEDS: PANTOPRAZOLE 40 MG/10 ML VIAL IV SCH (08:47)
[2019-09-28] MEDS: THIAMINE 100 MG/ML 2 ML VIAL IVP SCH (08:48)
--- NOTE | 2019-09-28 11:15 | EEG ---
ELECTROENCEPHALOGRAM REPORT DATE OF SERVICE: 09/27/2019 PREAMBLE: This is a 24-year-old male, came in with an overdose on baclofen, marijuana and some alcohol. This is a followup EEG. Patient continues to be intubated, sedated. EEG FINDINGS: This is a 21 channel portable EEG recording in a patient utilizing the 10-20 international system with bipolar and referential montages. The recording starts with patient being asleep, with the presence of diffuse high-amplitude 1-2 Hz, generalized delta activity seen in bihemispheric region. Some slow sleep spindles were seen. Some frontal intermittent rhythmic delta activity was seen. At the later part of the study, somewhat burst suppressed pattern was also evident. No definitive epileptiform activity was seen. IMPRESSION: This is an abnormal EEG due to background slowing of [id number] degree. This is suggestive of generalized cerebral dysfunction that can be as can be seen with toxic metabolic encephalopathies or due to diffuse structural brain abnormality. No definitive epileptiform activity was seen. When compared to the previous EEG from 09/24/2019, there is not much improvement. MMODL / IJN: [id number] /
[2019-09-28 11:48] LABS: Glucose,Whole Blood 94 mg/dL (75-99)
--- NOTE | 2019-09-28 11:48 | PN ---
PROGRESS NOTE PULMONARY/CRITICAL CARE PROGRESS NOTE: DATE OF SERVICE: 09/28/2019 CRITICAL CARE TIME: 33 minutes. A 24-year-old male, status post drug overdose with baclofen and possibly Robaxin and/or some narcotic. The patient was admitted to the hospital on September 21 and intubated on September 21. Drug screen was only positive for THC. He remains on the mechanical ventilator. He is on the volume assist-control mode rate of 24, tidal volume 500, FiO2 of 40%, PEEP of 5. Blood gases are reasonable with a pO2 of 77, pCO2 of 39 and pH of 7.4. The patient is on propofol at 50 mcg/kg per minute, saline at 75 mL an hour and Vital AF at 57 with a goal of 57 mL an hour. The patient will get a daily interruption of sedation today and possibly be weaned and extubated. He did have a daily interruption of sedation, his respiratory rate was 30, tidal volume 700, rapid shallow breathing index was 41. His heart rate was 96. He did have a cuff leak. His blood pressure was 170/98. The rest of the weaning parameters could not be obtained. He is still very lethargic and sleepy but I gave the order to go ahead and extubate the patient. The patient yesterday was on Versed as well as fentanyl and norepinephrine. The only thing he is currently on prior to extubation was a propofol at 50 mcg/kg per minute. Vital signs are reviewed, temperature is 97.5, heart rate 96, respiratory rate 22, blood pressure 146/96 mean 112, saturations are 96% on 8 L high flow. Appears in no acute distress. HEENT: Examination is grossly unremarkable. NECK: Supple. When I saw the patient, he had an orally placed endotracheal tube and NG tube. CARDIOVASCULAR: Examination reveals regular rhythm and rate. S1, S2 normal. He is mildly tachycardic at about 100 beats per minute. It is sinus. LUNGS: Reveal a few scattered coarse rhonchi. They are noted more on the right side. Breath sounds are slightly diminished at the right base. No wheezes. ABDOMEN: Soft, bowel sounds are heard. EXTREMITIES: Intact. No edema. SKIN: Without rash. NEUROLOGIC: Examination could not be adequately assessed as when I saw him was on propofol at 50 mcg/kg per minute. Microbiology is all negative including blood, sputum and urine. LAB VALUES: Reviewed. CBC is normal. White count 9.6, hemoglobin 13.1, hematocrit 40.1, platelet count 277,000, blood gases as mentioned showed a pO2 of 77, pCO2 of 39, and pH of 7.4. Sodium 140, potassium 3.9, chloride 107, CO2 is 26, anion gap is 7. BUN and creatinine were 7 and 0.64. Albumin 3.1. CHEST X-RAY: Shows some right basilar infiltrate and small right-sided effusion. There is some left basilar atelectasis. MEDICATIONS: Reviewed. Currently he is on Tylenol, Artificial Tears, baclofen, chlorhexidine, subcu heparin, Keppra, Ativan p.r.n., Narcan, Protonix, Zosyn, potassium replacement, propofol, and thiamine. ASSESSMENT: 1. Acute hypoxemic respiratory failure secondary to drug overdose, suspected baclofen and/or Robaxin. 2. Acute hypoxemic respiratory failure requiring intubation and mechanical ventilation on September 21 with anticipated extubation on September 27. 3. History of alcohol abuse. 4. History of substance abuse including methamphetamines, heroin, alcohol and marijuana. 5. Remote history of seizure disorder. 6. Acute mental status changes secondary to drug overdose. 7. History of chronic bronchial asthma, stable. 8. Metabolic encephalopathy. 9. Suspected aspiration pneumonia, right lower lobe. PLAN: His weaning parameters are reasonable. His vital signs are stable. His rapid shallow breathing index was only 41. Will go ahead and extubate the patient. Will DC unnecessary medications. Additional recommendations and suggestions are forthcoming. N.p.o. for 6 hours post extubation. Afterwards, if he is awake, alert, sips of water and chips of ice. Diet can be advanced after that. No additional recommendations are made. Prognosis is guarded. CRITICAL CARE TIME: 33 minutes. MMODL / IJN: [id number] /
--- NOTE | 2019-09-28 11:52 | CDI ---
Documentation Clarification Form Date: 09/28/2019 11:42:02 AM From: Leslie Felix CCS, CCDS Admit Date: 09/22/2019 09:11:00 PM Patient Name: Prashanth Carr Visit Number: [id number] Discharge Date: ATTENTION: The Clinical Documentation Specialists (CDI) and [facility] Coding Staff appreciate your assistance in clarifying documentation. Please respond to the clarification below the line at the bottom and electronically sign. The CDI & [facility] Coding staff will review the response and follow-up if needed. Please note: Queries are made part of the Legal Health Record. If you have any questions, please contact the author of this message via ITS. Dr. Mele Sutton: Patient was admitted on 09/21 via the ED with a suspected drug overdose. COVID-19 test done on 09/21 with negative result: result of test is not documented. Patient history/risk factors: Asthma, Smoker, Drug & Alcohol Abuse, Anxiety. Possible seizure disorder. Clinical Indicators: Presented via EMS, unresponsive due to probable drug & alcohol overdose. Intubated on admission to ED & remains in ICU on vent. Possible aspiration pneumonia & acute hypoxic & hpyercapnic respiratory failure. CXR: 09/21: Normal chest. Daily CXR: within normal limits status post intubation. CXR on 09/23: Probable atelectasis, concern for developing infiltrates. 09/24 CXR: Development of right pleural effusion & bilateral lower lobe increasing pneumonic infiltrates. Labs 09/21: COVID-19 Negative. WBC 19.6^, Neut 15.4^. ABGs 09/21: pO2 >400, O2 Sat 100.0^ Vital Signs 09/21: T 93.2, P 54*, R 10*, BP 138/99, PO 100 15% nrb - 98 on vent. Treatment: Admit to ICU, intubated on vent, IV Narcan, IV fluid 1,000 mls @ 999 mls/hr, IV Amidate, IV Propofol, IV Quelicin Vial, IV Versed, IV Na Bicarb. IV Precedex, IV Lasix, I Fentanyl & Heparin sq In order to capture the severity of condition, please clarify if the above treatment/clinical indicators signify: COVID-19 Suspected COVID-19 ruled out Other, please specify Unable to determine (Last Form Revision: July 2019) COVID-19 ruled out MTDD
[2019-09-28] MEDS: HALOPERIDOL LACTATE 5 MG/ML 1 ML VIAL IVP PRN ×8 (12:21→22:37)
--- NOTE | 2019-09-28 16:42 | P.PN ---
Subjective Progress Note Date: 09/28/19 Patient was extubated today at 10:30 AM. Patient still encephalopathic. Patient still very groggy, does not follow commands. No seizure type event/activity noted. Objective - Vital Signs Vital signs: Vital Signs Temp 99.3 F 09/28/19 16:00 Pulse 95 09/28/19 16:00 Resp 21 09/28/19 16:00 BP 162/114 09/28/19 15:00 Pulse Ox 96 09/28/19 16:10 Intake & Output 09/27/19 09/28/19 09/28/19 18:59 06:59 18:59 Intake Total 2650.201 2294.675 1241.19 Output Total 1605 3330 4200 Balance 1045.201 -1035.325 -2958.81 Weight 117.5 kg 116.4 kg Intake: IV 1300 1025 750 Keppra IVBP 100 Piperacillin-Tazobactam 3 200 100 .375 gm In Sodium Chloride 0.9% 100 ml @ 25 mls/hr IVPB Q8H DAKSHA Rx#: [id number] Sodium Chloride 0.9% 1, 600 825 750 000 ml @ 75 mls/hr IV . [id number] DAKSHA Rx#:[id number] Vancomycin 2,000 mg In 500 Sodium Chloride 0.9% 500 ml 500 ml @ 167 mls/hr IVPB Q8HR DAKSHA Rx#: [id number] Intake, IV Titration 663.201 324.675 89.19 Amount Midazolam HCl 200 mg In 113.625 Sodium Chloride 0.9% 60 ml @ 10 MG/HR 5 mls/hr IV .Q20H DAKSHA Rx#:[id number] Norepinephrine 32 mg In 46.238 Sodium Chloride 0.9% 218 ml @ 0.05 MCG/KG/MIN 2. 677 mls/hr IV .Q24H DAKSHA Rx#:[id number] Propofol 1,000 mg In 174.025 324.675 89.19 Empty Bag 1 bag @ Titrate IV .Q0M DAKSHA Rx#: [id number] fentaNYL (PF) 2,500 mcg 329.313 In Sodium Chloride 0.9% 200 ml @ Per Protocol IV .Q0M DAKSHA Rx#:[id number] Oral 57 Tube Feeding 627 855 285 Other 60 90 60 Output: Urine 1605 3330 4200 Other: Voiding Method Indwelling Catheter Indwelling Catheter Indwelling Catheter ABP, PAP, CO, CI - Last Documented Arterial Blood Pressure 160/86 - Exam Patient is encephalopathic, just got extubated. Pupils are 5-6 mm, reacting. Patient's tone is equal in the arms and legs. Reflexes are diminished. Plantars are equivocal. No clonus. No obvious seizure activity noted. - Labs CBC & Chem 7: 09/28/19 04:16 09/28/19 04:16 Labs: Abnormal Lab Results - Last 24 Hours (Table) 09/25/19 09/28/19 09/28/19 Range/Units 00:58 04:16 04:16 Neutrophils # 8.5 H (1.3-7.7) k/uL Lymphocytes # 0.5 L (1.0-4.8) k/uL ABG pO2 46 L* (83-108) mmHg ABG HCO3 (21-25) mmol/L ABG Total CO2 (19-24) mmol/L BUN 7 L (9-20) mg/dL Creatinine 0.64 L (0.66-1.25) mg/dL Glucose 118 H (74-99) mg/dL POC Glucose (mg/dL) (75-99) mg/dL Total Protein 6.0 L (6.3-8.2) g/dL Albumin 3.1 L (3.5-5.0) g/dL 09/28/19 09/28/19 Range/Units 04:58 06:27 Neutrophils # (1.3-7.7) k/uL Lymphocytes # (1.0-4.8) k/uL ABG pO2 77 L (83-108) mmHg ABG HCO3 27 H (21-25) mmol/L ABG Total CO2 28 H (19-24) mmol/L BUN (9-20) mg/dL Creatinine (0.66-1.25) mg/dL Glucose (74-99) mg/dL POC Glucose (mg/dL) 111 H (75-99) mg/dL Total Protein (6.3-8.2) g/dL Albumin (3.5-5.0) g/dL Microbiology - Last 24 Hours (Table) 09/26/19 16:00 Gram Stain - Final Sputum Sputum Culture - Final 09/26/19 16:00 Blood Culture - Preliminary Blood No Growth after 24 hours 09/26/19 16:00 Blood Culture - Preliminary Blood No Growth after 24 hours Assessment and Plan Assessment: * Drug overdose with baclofen, possible Robaxin, some marijuana and alcohol. * History of substance abuse. * Status post Ventilator-dependent respiratory failure, extubated today. * Reported, remote history of seizure disorder. Plan: * Patient is extubated. Patient is still encephalopathic but hopefully will improve over the next day or so. * Continue Keppra 1000 mg twice a day. * Patient had an EEG, yesterday which revealed background slowing of at least moderate to severe degree. No epileptiform activity was seen. * Neurology will follow. * Symptomatic treatment.
[2019-09-28] MEDS ORDERED: ZIPRASIDONE 20 MG VIAL IM STA (23:08)
[2019-09-29 00:20] LABS: Glucose,Whole Blood 85 mg/dL (75-99)
[2019-09-29] MEDS: levETIRAcetam IV 1,000 MG in SALINE 1 100ML.BAG IVPB SCH ×2 (01:12→14:43)
[2019-09-29] MEDS: HALOPERIDOL LACTATE 5 MG/ML 1 ML VIAL IVP PRN ×2 (01:12→03:05)
[2019-09-29] MEDS: PIPERACILLIN-TAZOBACTAM 3.375 GM in SODIUM CHLORIDE 0.9% 100 ML IVPB SCH (03:05)
[2019-09-29 04:34] LABS: Basophils # (A) 0.1 k/uL (0-0.2); Basophils % (A) 1 %; Eosinophils # (A) 0.1 k/uL (0-0.7); Eosinophils % (A) 1 %; HCT 41.4 % (39.0-53.0); HGB 12.8 gm/dL (13.0-17.5); Lymphocytes # (A) 1.3 k/uL (1.0-4.8); Lymphocytes % (A) 13 %; MCH 27.9 pg (25.0-35.0); Mean Platelet Volume 8.1; Monocytes # (A) 0.6 k/uL (0-1.0); Monocytes % (A) 6 %; Neutrophils # (A) 7.7 k/uL (1.3-7.7); Neutrophils % (A) 78 %; Platelet Count 295 k/uL (150-450); RDW 13.1 % (11.5-15.5); WBC 9.9 k/uL (3.8-10.6)
[2019-09-29 04:49] LABS: ALT 26 U/L (4-49); AST 41 U/L (17-59); African American GFR (CKD) >90 (>60 ml/min/1.73 sqM); Albumin 3.4 g/dL (3.5-5.0); Alkaline Phosphatase 107 U/L (38-126); Anion Gap 9 mmol/L; Blood Urea Nitrogen 9 mg/dL (9-20); Calcium 9.2 mg/dL (8.4-10.2); Carbon Dioxide 24 mmol/L (22-30); Chloride 107 mmol/L (98-107); Glucose 97 mg/dL (74-99); Non-African American GFR(CKD) >90 (>60 ml/min/1.73 sqM); Potassium 3.6 mmol/L (3.5-5.1); Sodium 140 mmol/L (137-145); Total Bilirubin 0.6 mg/dL (0.2-1.3); Total Protein 6.2 g/dL (6.3-8.2)
[2019-09-29] MEDS ORDERED: POTASSIUM CHLORIDE ER 20 MEQ TAB.ER PO SCH (05:00)
[2019-09-29 06:14] LABS: Glucose,Whole Blood 110 mg/dL (75-99)
--- NOTE | 2019-09-29 06:28 | XR ---
EXAMINATION TYPE: XR chest 1V portable DATE OF EXAM: 09/29/2019 CLINICAL HISTORY: Difficulty breathing progress study. TECHNIQUE: 2 AP portable upright view of the chest are obtained. COMPARISON: Chest x-ray from one day earlier and older studies. FINDINGS: Interval extubation with removal of endotracheal and orogastric tubes. Persistent right ba silar opacity though some improved aeration noted. Improved aeration left lung base. Cardiac silhouet te size is stable and within normal limits. Osseous structures are intact. IMPRESSION: Interval extubation. Resolved left basilar acute atelectasis and/or infiltrate. Improved but persistent right basilar acute infiltrate and/or atelectasis noted.
--- NOTE | 2019-09-29 07:50 | P.PN ---
Subjective Progress Note Date: 09/28/19 Principal diagnosis: 24-year-old male is admitted when subsequently intubated secondary to possible drug overdose. Patient actually brought his friend for drug overdose once he is in the ER patient became more and more less responsive was subsequently remained intubated for protection of airway. Patient is presently on baseline when settings clinically doing well except for the agitation with the sedation off because of which patient is started on Precedex, most probably will be extubated later today as per the ER physician note patient had large amount of tequila and possibly to muscle relaxers urine drug screen is only positive for marijuana. There is a possibility that he and his friend who was also intubated may have used car fentanyl. 09/24/2019 Patient is seen and evaluated and follow-up and currently remains intubated on mechanical vent in the ICU and is being closely monitored. Manager Process Excellence following closely. Neurology consulted and pending at this time. Attempts at weaning off propofol this morning with increased agitation inviting an ET tube with extreme restlessness noted and patient was recently sedated with propofol. Patient also has fentanyl running. Awaiting toxicology report that was a send out today. Basic labs within normal limits. Sodium is currently 139 and creatinine is 0.87. Initiating enteral feeding today as patient remains intubated and will continue at this time. Possible drug overdose culprit to baclofen although pending report at this time. 09/25/2019 Patient remains intubated EEG showed severe encephalopathy neurology evaluated the patient patient apparently had remote history of seizures patient was started on antiseizure medications. Patient is on very high doses of propofol, Versed, fentanyl for sedation patient apparently will benefit from a continuous EEG monitoring, patient is presently on 100% FiO2 set up respiratory rate of 22 people of 8 that volume of 500 patient was resumed on baclofen to avoid baclofen withdrawal patient was started on Zosyn because of aspiration pneumonia patient has bilateral lower lobe infiltrates. Patient is on low-dose of Levophed and urine output is borderline normal, on normal saline of 1 25 mL per hour 09/26/2019 Patient still remains an above-mentioned the sedatives still high doses. Patient has hypothermia followed by hypothermia will do marin cultures again including blood cultures sputum cultures from his very thick urine cultures urine output is fairly good patient is on IV fluids vancomycin will be added. Review of systems: Unable to obtain due to his clinical condition 09/27/2019 Patient is seen and evaluated in the ICU and is being closely monitored. Patient remains sedated and on mechanical vent. Patient remains on fentanyl and Versed along with propofol and is heavily sedated. Patient requiring levophed for blood pressure. Patient is to receive another EEG today. Neurology following. Patient was also initiated on Keppra and remains on baclofen at this time. Sputum cultures thus far have been showing some gram-positive bacilli and cocci. Blood cultures have been negative. Patient is currently on Zosyn and will continue at this time. Vancomycin has been discontinued. Repeat chest x- ray this morning shows a resolved left pleural effusion and left basilar airspace disease along with stable small right pleural effusion and right basilar airspace disease. Patient continues to be extremely agitated and restless and sedation vacation. No attempt at weaning today. 09/28/2019 Patient is seen in follow-up and continues to be in the ICU being closely monitored. Patient is extubated today and continues to be slightly agitated and alert and oriented 1-2. Patient not following commands appropriately. Patient does have Haldol as needed for agitation. Patient remains on Zosyn IV antibiotics as today's chest x-ray shows persistent right basilar infiltrate and/or atelectasis with underlying effusion with increasing left lower lobe infiltrates. Manager Process [employer] following as well lung with neurology. Patient underwent another EEG showing no definitive epileptiform activity although background slowing of moderate to severe degree which could be seen with toxic metabolic encephalopathies. Objective - Vital Signs Vital signs: Vital Signs Temp 100.0 F H 09/29/19 04:00 Pulse 83 09/29/19 06:00 Resp 14 09/29/19 06:00 BP 171/106 09/28/19 18:00 Pulse Ox 91 L 09/29/19 06:00 Intake & Output 09/28/19 09/29/19 09/29/19 18:59 06:59 18:59 Intake Total 1391.19 1635 Output Total 4550 4130 Balance -3158.81 -2495 Weight 116.4 kg Intake: IV 900 1275 Keppra IVBP 100 Piperacillin-Tazobactam 3 200 .375 gm In Sodium Chloride 0.9% 100 ml @ 25 mls/hr IVPB Q8H [facility] Rx#: [id number] Sodium Chloride 0.9% 1, 900 975 000 ml @ 75 mls/hr IV . [id number] [facility] Rx#:[id number] Intake, IV Titration 89.19 Amount Propofol 1,000 mg In 89.19 Empty Bag 1 bag @ Titrate IV .Q0M [facility] Rx#: [id number] Oral 57 360 Tube Feeding 285 Other 60 Output: Urine 4550 4130 Other: Voiding Method Indwelling Catheter Indwelling Catheter ABP, PAP, CO, CI - Last Documented Arterial Blood Pressure 159/86 - Exam GENERAL: 24-year-old male recently extubated this morning and continues to be agitated and restless, alert and oriented 1-2, not following simple commands. HEENT: Pupils are round and equally reacting to light. EOMI. No scleral icterus. No conjunctival pallor. Normocephalic, atraumatic. No pharyngeal erythema. No thyromegaly. CARDIOVASCULAR: S1 and S2 present. No murmurs, rubs, or gallops. PULMONARY: Chest is clear to auscultation, no wheezing or crackles. ABDOMEN: Soft, nondistended, normoactive bowel sounds. No palpable organomegaly. MUSCULOSKELETAL: No joint swelling or deformity. EXTREMITIES: No cyanosis, clubbing, or pedal edema. NEUROLOGICAL: Awake, alert and oriented 1-2, agitated SKIN: No rashes. Multiple tattoos noted - Labs CBC & Chem 7: 09/29/19 04:15 09/29/19 04:15 Labs: Abnormal Lab Results - Last 24 Hours (Table) 09/29/19 09/29/19 09/29/19 Range/Units 04:15 04:15 06:13 Hgb 12.8 L (13.0-17.5) gm/dL Creatinine 0.60 L (0.66-1.25) mg/dL POC Glucose (mg/dL) 110 H (75-99) mg/dL Total Protein 6.2 L (6.3-8.2) g/dL Albumin 3.4 L (3.5-5.0) g/dL Microbiology - Last 24 Hours (Table) 09/26/19 16:00 Blood Culture - Preliminary Blood No Growth after 48 hours 09/26/19 16:00 Blood Culture - Preliminary Blood No Growth after 48 hours 09/26/19 16:00 Gram Stain - Final Sputum Sputum Culture - Final Assessment and Plan Assessment: -Altered mental status, toxic encephalopathy secondary to drug overdose actual drug the patient overdosed on is not clear as mentioned in interval history although culprit may have been baclofen although toxicology only showing marijuana. Patient was initiated on baclofen and also Keppra for seizure precautions. Per friend who was also intubated in the same manner has been recently extubated and states they were taking large amounts of gabapentin along with marijuana and attempts to get high. -Acute respiratory failure, patient does have acute hypoxic and hypercapnic respiratory failure. recently extubated -Toxic encephalopathy due to drug overdose -History of seizures in the past patient has some clonic activity because of which patient was resumed on antiseizure medications. neurology following. -Possible aspiration pneumonia for which patient patient was Zosyn which will be continued use to have hypothermia and hyperthermia. Vancomycin discontinued. Blood Cultures remain negative. Sputum cultures preliminary showing gram- positive cocci -History of asthma not in acute exacerbation patient does have history of smoking -Anxiety disorder Plan: Continue with close monitoring in the ICU and certified adapted physical educator following. Neurology following. Repeat EEG shows no epileptiform activity noted although continues to be suggestive of toxic metabolic encephalopathies. Patient to continue with the one-to-one sitter for safety. Further recommendations to follow. Will continue to monitor closely.
[2019-09-29] MEDS: PANTOPRAZOLE 40 MG/10 ML VIAL IV SCH (07:58)
[2019-09-29] MEDS: THIAMINE 100 MG/ML 2 ML VIAL IVP SCH (08:00)
[2019-09-29] MEDS: SODIUM CHLORIDE 0.9% 1,000 ML IV SCH (08:11)
[2019-09-29] MEDS: BACLOFEN 10 MG TAB PEG/G-TUBE SCH (08:34)
--- NOTE | 2019-09-29 10:49 | P.PN ---
Subjective Progress Note Date: 09/29/19 Principal diagnosis: Drug Overdose, suspected baclofen overdose This is a 24-year-old white male, admitted last night from the ER. Patient presented to the ER after he had a large amount of tequila along with muscle relaxers. It is not clear whether the patient used any undetectable opioid in the drug screen, possibly carfentanyl. Apparently when the patient was brought into the ER, he was obtunded, had altered mental status, no obvious injuries were noted. Patient had to be intubated almost as soon as he was brought in by EMS to the ER. According to EMS he was only responsive to deep painful stimuli. Received Narcan with no change whatsoever in his mental status, he did have episodes of extreme agitation on the way to the emergency room. Another friend had similar symptoms upon arrival to the ER, and both were intubated immediately. A drug screen came back showing mostly positive for marijuana. Otherwise the drug screen was completely negative. At any rate patient was intubated, placed on mechanical ventilation, and I saw him this morning. Presently on propofol. His ventilator settings are assist control rate of 20 FiO2 is 30% PEEP is 5 tidal volume is 500. ABG this morning showed a pO2 of 159 pCO2 of 41 pH of 7.42. Patient was quite sedated, however as soon as the propofol was discontinued, patient woke up but extremely agitated, unable to follow any instructions, unable to maintain any eye contact, hence no further plans for weaning or extubation were considered at that point. Patient will be tried on Precedex, and if not tolerated, may switch him back to propofol for the next 24 hours. Chest x-ray showed no evidence of active disease. Patient was reevaluated today on 09/24/19, remains in the ICU, intubated and mechanically ventilated. Patient is on assist control rate of 20 tidal volume is 500 FiO2 is 40% and PEEP of 5. His ABG today showed a pO2 of 82 pCO2 of 41 pH of 7.42. Chest x-ray showed no evidence of active disease, lungs are well aerated, no focal consolidation or infiltrate, endotracheal tube was noted to be high in the trachea and it will be advanced down 2 cm at least. His labs including his CBC and basic metabolic profile are noted to be normal. Today we have attempted to wean off propofol and assess the patient could be weaned and extubated. However the patient became extremely agitated, restless, and he was biting on the endotracheal tube, and could not be sedated to properly ventilate him. Hence Nimbex was given in addition to higher dose of propofol and higher dose of fentanyl. After Nimbex, patient was noted to have significantly elevated blood pressure, and I was concerned about the possibility of underlying seizures mass by Nimbex, hence I recommended stopping the Nimbex immediately. I also recommended switching propofol to Versed and I have kept him on fentanyl at 2 mcg/kg/h. I have also recommended Ativan 2 mg IV push 1. That seemed to help significantly. In the meantime I have recommended neurological evaluation. Dr. Amato saw the patient, and discussed the issue of potential baclofen overdose with the poison control. They were already notified about this patient upon admission, and the recommendation was supportive care measures only. They are still recommending supportive care measures, but they're also concerned about the possibility that baclofen has a long half-life, and if the patient chronically abuses baclofen, there is a concern about baclofen withdrawal well, and recommending at least small dose of baclofen to be given via nasogastric tube. And this was recommended by neurology on the case. In the meantime considering the patient has history of seizure disorder, Keppra was also added. Now the patient is on Versed which is being titrated, discontinued propofol, kept him on fentanyl, we will use Ativan intermittently as needed, Keppra was added by neurology. And recommended Lioresal/baclofen via nasogastric tube 10 mg 3 times a day. Nimbex was discontinued. IV fluid was increased to 1 25 mL per hour. And the plan is to start patient on enteral feeding today. The patient was seen today 09/25/2019 in follow-up in the intensive care unit. He remains intubated and on the mechanical ventilator with settings of before meals plus. Tidal volume 500, respiratory rate 22, FiO2 100% and a PEEP of 8. Morning blood gases reveal a pCO2 of 89, CO2 of 40 and a pH is 7.4. Throughout the night he had issues with recurrent hypoxemia requiring the FiO2 to be increased to 100%, this was shortly after repositioning for a chest x-ray. He is currently sedated on propofol at 40 mcg/kg/m. Versed at 20 mg per hour. Fentanyl at 2.5 mcg/kg per hour. He is being nourished with vital AF at 50 MLS per hour. Goal is 57 ML's per hour. His EEG did reveal severe encephalopathy. He has been seen by neuro services. He is currently on baclofen and Keppra. Antibiotics in the form of Zosyn. Sputum culture revealed no growth. Chest x-r ay reveals evidence of right pleural effusion and bilateral lower lobe infiltrates. White count 13.0. Hemoglobin 13.0. Sodium 136. Potassium 3.7. Chloride 108. Bicarb 23. Creatinine 0.75. Prolactin 22.5. He's had borderline blood pressures and borderline urine output. Reevaluated today on 09/26/19, patient remains in the intensive care unit, intubated, and mechanically ventilated. His ventilator settings are assist control rate of 22 tidal volume is 500 FiO2 is 50% and PEEP is 8. Chest x-ray is showing worsening bilateral airspace disease, and possibly a right-sided pleural effusion. Patient is still requiring significant amount of sedation, he is on Versed at 20 mg per hour, propofol at 60 mcg/kg/m, fentanyl at 2 mcg/kg/h, and he is on norepinephrine at 0.03 mcg/kg/m. His IV fluid is at 1 25 mL per hour in the form of 0.9 normal saline. Patient gets extreme agitation on lower sedation, and he did not have good tolerance to Nimbex. His temperature seems to be fluctuating up and down, at one point he was receiving Tylenol for high elevated temperature, and now he is on cooling blankets for low and pressure with a temp of 95. I recommended serum cortisol level to be checked. I have also recommended that we continue Zosyn, Lasix was ordered today because of his bilateral pleural effusions, I have increased his rate to 24, and cut down his IV fluid to 75 mL per hour. No plans to wean the patient today as he is not ready. Previous attempts to wean the patient revealed that the patient is extremely agitated, gets quite restless, and takes at least 4 people to hold him down although he is on sedatives and narcotics for sedation. Labs today showed a pO2 of 77 pCO2 of 48 pH of 7.33 hence his respiratory rate was increased to 24. His electrolytes are normal renal profile is normal CBC is relatively normal. 09/29/2019 patient seen in follow-up in the intensive care unit. Patient was successfully weaned and extubated from the mechanical ventilator yesterday on 09/28/2019. Following extubation he did have periods of confusion, and agitation requiring doses of antipsychotics. On today's exam patient seems to be a lot [place], he is answering questions appropriately, she knew she took 30 pills of baclofen and he denied any suicidal ideations, he states him and his friend were just trying to get high. Room air pulse ox is 91-92%, hemodynamically she is stable, he did have low-grade fevers last night, with a T-max in the last 24 hours of 100.0F, patient does have follow-up follow-up chest x-ray from today which shows resolved left basilar Atelectasis and/or infiltrate, and persistent right basilar Infiltrate which seems to be slightly improved compared to yesterday, patient is on Zosyn for empiric antibiotic coverage, blood and sputum cultures have been negative, today's labs have been reviewed showing normal white count of 9.9, hemoglobin of 12.8, platelet count of 295, electrolytes and renal profile were unremarkable. Patient has had no seizure episodes, neurology is following, patient continues on Keppra and Baclofen. Continues on thiamine replacement. Clinically stable, mentation is improving, patient is fairly cooperative, apparently he did attempt to leave AGAINST MEDICAL ADVICE last night however in view of his confusion health safety specialist was placed at the bedside, and patient was prevented from leaving in view of not being able to make sound medical decisions for himself. Objective - Vital Signs Vital signs: Vital Signs Temp 99.0 F 09/29/19 08:00 Pulse 62 09/29/19 09:00 Resp 18 09/29/19 09:00 BP 134/91 09/29/19 08:00 Pulse Ox 92 L 09/29/19 09:00 Intake & Output 09/28/19 09/29/19 09/29/19 18:59 06:59 18:59 Intake Total 1391.19 1635 75 Output Total 4550 4130 325 Balance -3158.81 -2495 -250 Weight 116.4 kg Intake: IV 900 1275 75 Keppra IVBP 100 Piperacillin-Tazobactam 3 200 .375 gm In Sodium Chloride 0.9% 100 ml @ 25 mls/hr IVPB Q8H [facility] Rx#: [id number] Sodium Chloride 0.9% 1, 900 975 75 000 ml @ 75 mls/hr IV . [id number] [facility] Rx#:[id number] Intake, IV Titration 89.19 Amount Propofol 1,000 mg In 89.19 Empty Bag 1 bag @ Titrate IV .Q0M [facility] Rx#: [id number] Oral 57 360 Tube Feeding 285 Other 60 Output: Urine 4550 4130 325 Other: Voiding Method Indwelling Catheter Indwelling Catheter ABP, PAP, CO, CI - Last Documented Arterial Blood Pressure 147/72 - Exam GENERAL EXAM: Alert, 24-year-old white male, on room air, with a pulse ox of 91-92% resting in bed, his questions appropriately, he thought he was in [facility] but knew the year, he knew the president, is recalling events correctly comfortable in no apparent distress. HEAD: Normocephalic/atraumatic. EYES: Normal reaction of pupils, equal size. Conjunctiva pink, sclera white. NOSE: Clear with pink turbinates. THROAT: No erythema or exudates. NECK: No masses, no JVD, no thyroid enlargement, no adenopathy. CHEST: No chest wall deformity. Symmetrical expansion. LUNGS: Equal air entry with no crackles, wheeze, rhonchi or dullness. CVS: Regular rate and rhythm, normal S1 and S2, no gallops, no murmurs, no rubs ABDOMEN: Soft, nontender. No hepatosplenomegaly, normal bowel sounds, no guarding or rigidity. EXTREMITIES: No clubbing, no edema, no cyanosis, 2+ pulses and upper and lower extremities. MUSCULOSKELETAL: Muscle strength and tone normal. SPINE: No scoliosis or deformity SKIN: No rashes CENTRAL NERVOUS SYSTEM: Alert and oriented -3. No focal deficits, tone is normal in all 4 extremities. PSYCHIATRIC: Alert and oriented -3. Appropriate affect. Intact judgment and insight. - Labs CBC & Chem 7: 09/29/19 04:15 09/29/19 04:15 Labs: Abnormal Lab Results - Last 24 Hours (Table) 09/29/19 09/29/19 09/29/19 Range/Units 04:15 04:15 06:13 Hgb 12.8 L (13.0-17.5) gm/dL Creatinine 0.60 L (0.66-1.25) mg/dL POC Glucose (mg/dL) 110 H (75-99) mg/dL Total Protein 6.2 L (6.3-8.2) g/dL Albumin 3.4 L (3.5-5.0) g/dL Microbiology - Last 24 Hours (Table) 09/26/19 16:00 Blood Culture - Preliminary Blood No Growth after 48 hours 09/26/19 16:00 Blood Culture - Preliminary Blood No Growth after 48 hours 09/26/19 16:00 Gram Stain - Final Sputum Sputum Culture - Final Assessment and Plan Plan: Assessment: #1. Drug overdose, patient had mistaken of 30 tablets of baclofen. #2. Altered mental status, and patient was intubated for protection of his airway on 09/22/2019, successfully weaned and extubated on 09/29/2019. Altered mental status is related to acute drug overdose #3. Bibasilar pneumonia, improving on today's chest x-ray, right greater than left basilar infiltrates, most likely related to aspiration #4. History of substance abuse including methamphetamine, heroin, alcohol and marijuana #5. Remote history of epilepsy #6. Possibility of seizure related to withdrawal, neurology is following and patient has been on Keppra and baclofen #7. History of bronchial asthma, presently stable #8. Acute metabolic encephalopathy/toxic encephalopathy secondary to drug overdose Plan: We'll switch the IV Zosyn to oral Augmentin, clinically patient is stable, mentation is improving, he is answering questions appropriately, although he still thought he was in [facility], and thought the year was 2019. Cooperative, he does recall taking 30 pills of baclofen just to get high he denies any suicidal ideations. He was to go home, he states his mother is available to help him. I would like to get psychiatry opinion on patient's ability to make some medical decisions and history of substance abuse. From pulmonary perspective he is stable for discharge once she is cleared by psychiatry. Maintaining safety precautions, Hep-Lock IV fluids, patient is tolerating oral intake. We'll continue to closely follow I performed a history & physical examination of the patient and discussed their management with my nurse practitioner, Carolina Chapa. I reviewed the nurse practitioner's note and agree with the documented findings and plan of care. Lung sounds are positive for diminished breath sounds. The findings and the impression was discussed with the patient. I attest to the documentation by the nurse practitioner. Time with Patient: Less than 30
[2019-09-29] MEDS: HEPARIN SODIUM,PORCINE 5,000 UNIT/ML 1 ML VIAL SQ SCH ×2 (11:03→21:31)
[2019-09-29] MEDS: AMOXIC-POT CLAV 875-125MG 1 EACH TAB PO SCH ×2 (11:04→22:25)
[2019-09-29 12:48] LABS: Glucose,Whole Blood 105 mg/dL (75-99)
--- NOTE | 2019-09-29 12:52 | P.CN ---
Psychiatric Consult - . Consult date: 09/29/19 Consult:: 09/29/19 12:38 IDENTIFYING DATA: This patient is a 24-year-old male who currently lives with his mother is unemployed and has no kids HISTORY OF PRESENT ILLNESS: The patient presented to the hospital for a suspected overdose and had mental status changes in the ER. Patient was given Narcan with no improvement in his mental status. Patient was agitated at that time and did report drinking alcohol along with baclofen. Patient was intubated in the ER and transferred to the ICU and gradually improved and recently extubated on 09/28/19. Patient was also placed on Zosyn for possible pneumonia on chest x-ray. Patient was restarted on baclofen 10 mg 3 times a day and haloperidol when necessary for agitation. Psychiatry is consulted for psychiatric evaluation. As per nurse taking care of patient states that patient had a guardianship hearing this morning and patient's mother is now the patient's temporary guardian. Patient was seen at the bedside with a sitter and was directable and agreeable to speak to script writer. Patient was fairly cooperative with script writer during the interview and attempting to be appropriate. He described a "bad trip" as he was trying to "get high" with one of his friends who he states was a bad influence on him. He claims that he was not attempting suicide at that time when he took the pills of baclofen. He states that his friend had a seizure and he was worried. He states that he has a lot of things to live for and was future oriented during the conversation. Patient did state that he has been dealing with depressed mood for about half a year now as patient claims that he was released from [facility] in July 2018 for criminal sexual conduct charges and states that he was in [facility] for 5 years. He states that he does have some anxiety at times. He stated that his mother is willing to take him back to live with her in [place] and claims that "I need to get away from this place and these friends". He spoke about wanting to get a job with his stepfather and stay away from drugs.. At this time patient denies any suicidal or homical ideations, intent or plan. Patient denies any auditory, visual hallucinations and denies any paranoia or delusions. Patients admits to using alcohol occasionally states that he smokes marijuana daily. He also claims that he smokes cigarettes daily. PAST PSYCHIATRIC HISTORY: Patient has a a history of depression. Patient denies being on any psychiatric medications. Patient denies any previous psychiatric hospitalizations. Patient denies any psychiatric outpatient follow-up. PAST MEDICAL HISTORY: Asthma. Seizures. ALLERGIES: as per EMR. CHEMICAL DEPENDENCY HISTORY: as per HPI. FAMILY PSYCHIATRIC/SUBSTANCE USE HISTORY: denies SOCIAL HISTORY: Patient was born and raised in [place], [place]. He states that he completed high school and did not attend college. He was previously living with his grandfather in [place] however now claims that he'll be living with his mother in [place]. He states that he is unemployed has no kids and is single. He claims to have a legal history of imprisonment for 5 years and was released in July 2018 for criminal sexual charges. MENTAL STATUS EXAM: General Appearance: Patient appears to be tall, with several tattoos, older than stated age is alert, directable and attempts to cooperate. Patient appears to have fair hygiene and grooming wearing hospital gown with fair eye contact. Behavior: Patient is calmly lying in bed without any agitated behavior. Attempts to cooperate. Speech: Patient's speech is fluent and nonpressured. Mood/Affect: Patient reports their mood is "down", affect is congruent Suicidality/Homicidality: Patient denies having any suicidal or homicidal ideation intent or plan. Perceptions: Patient denies any visual hallucinations and denies any auditory hallucinations Though content/process: There is no evidence of any delusional thought content and thought process is linear and goal-directed. Future oriented. Memory and concentration: AOX3, grossly intact for the purposes of this session. Can spell "WORLD" backwards Judgment and insight: Limited IMPRESSIONS: Depressive disorder unspecified, rule out substance-induced depressive disorder vs. adjustment disorder with depressed mood Cannabis use disorder Alcohol abuse Nicotine dependence PLAN: -At this time patient DOES NOT meet criteria for inpatient psychiatric adm ission. -Would recommend the following medication changes/additions: Patient is agreeable to take Zoloft 50 mg daily for mood/anxiety. Melatonin 5 mg daily at bedtime for sleep. Discussed the risks and benefits of this medication and also advised patient that he needs to follow up with a psychiatrist to have this medication titrated up if needed in the near future. Patient verbalized understanding and agreed. -industrial workers to ensure that patient and mother/guardian have outpatient psychiatric care referral/resources as patient will need to have appropriate follow-up within 1-2 weeks closer to where he lives. -industrial workers also to provide patient with substance abuse treatment programs and resources in the community. -Digital Marketing Officer spoke with patient's mother/guardian Elizabet over the phone at [phone] who states that she has been concerned about patient's choices in friends and contacts in the [place] area and claims that he is not making forman decisions and has possibly been abusing drugs. She also claimed that she was willing to medicinal plant picker the patient and have him live with her in [place]. Digital Marketing Officer discussed the importance of psychiatric outpatient follow-up along with possibility of outpatient substance use treatment programs. Digital Marketing Officer spoke about medication Zoloft and answered any questions and addressed concerns related to patient's care. Digital Marketing Officer also informed patient's mother that she should seek urgent medical care in the ER if patient's condition worsens. She verbally understood and agreed to plan. -Psychiatry will sign off at this point, please contact with any questions.
[2019-09-29] MEDS: SERTRALINE 50 MG TAB PO SCH (13:23)
--- NOTE | 2019-09-29 14:29 | P.PN ---
Subjective Progress Note Date: 09/29/19 Principal diagnosis: 24-year-old male is admitted when subsequently intubated secondary to possible drug overdose. Patient actually brought his friend for drug overdose once he is in the ER patient became more and more less responsive was subsequently remained intubated for protection of airway. Patient is presently on baseline when settings clinically doing well except for the agitation with the sedation off because of which patient is started on Precedex, most probably will be extubated later today as per the ER physician note patient had large amount of tequila and possibly to muscle relaxers urine drug screen is only positive for marijuana. There is a possibility that he and his friend who was also intubated may have used car fentanyl. 09/24/2019 Patient is seen and evaluated and follow-up and currently remains intubated on mechanical vent in the ICU and is being closely monitored. [facility] following closely. Neurology consulted and pending at this time. Attempts at weaning off propofol this morning with increased agitation inviting an ET tube with extreme restlessness noted and patient was recently sedated with propofol. Patient also has fentanyl running. Awaiting toxicology report that was a send out today. Basic labs within normal limits. Sodium is currently 139 and creatinine is 0.87. Initiating enteral feeding today as patient remains intubated and will continue at this time. Possible drug overdose culprit to baclofen although pending report at this time. 09/25/2019 Patient remains intubated EEG showed severe encephalopathy neurology evaluated the patient patient apparently had remote history of seizures patient was started on antiseizure medications. Patient is on very high doses of propofol, Versed, fentanyl for sedation patient apparently will benefit from a continuous EEG monitoring, patient is presently on 100% FiO2 set up respiratory rate of 22 people of 8 that volume of 500 patient was resumed on baclofen to avoid baclofen withdrawal patient was started on Zosyn because of aspiration pneumonia patient has bilateral lower lobe infiltrates. Patient is on low-dose of Levophed and urine output is borderline normal, on normal saline of 1 25 mL per hour 09/26/2019 Patient still remains an above-mentioned the sedatives still high doses. Patient has hypothermia followed by hypothermia will do marin cultures again including blood cultures sputum cultures from his very thick urine cultures urine output is fairly good patient is on IV fluids vancomycin will be added. Review of systems: Unable to obtain due to his clinical condition 09/27/2019 Patient is seen and evaluated in the ICU and is being closely monitored. Patient remains sedated and on mechanical vent. Patient remains on fentanyl and Versed along with propofol and is heavily sedated. Patient requiring levophed for blood pressure. Patient is to receive another EEG today. Neurology following. Patient was also initiated on Keppra and remains on baclofen at this time. Sputum cultures thus far have been showing some gram-positive bacilli and cocci. Blood cultures have been negative. Patient is currently on Zosyn and will continue at this time. Vancomycin has been discontinued. Repeat chest x- ray this morning shows a resolved left pleural effusion and left basilar airspace disease along with stable small right pleural effusion and right basilar airspace disease. Patient continues to be extremely agitated and restless and sedation vacation. No attempt at weaning today. 09/28/2019 Patient is seen in follow-up and continues to be in the ICU being closely monitored. Patient is extubated today and continues to be slightly agitated and alert and oriented 1-2. Patient not following commands appropriately. Patient does have Haldol as needed for agitation. Patient remains on Zosyn IV antibiotics as today's chest x-ray shows persistent right basilar infiltrate and/or atelectasis with underlying effusion with increasing left lower lobe infiltrates. Boatwright following as well lung with neurology. Patient underwent another EEG showing no definitive epileptiform activity although background slowing of moderate to severe degree which could be seen with toxic metabolic encephalopathies. 09/29/2019 Patient is seen and evaluated in follow-up and continues to be in the ICU although waiting for transfer to the [facility] unit. Patient was extubated yesterday and tolerated well. Patient continues to have moments of confusion with slight agitation although redirectable. Patient is confused although responding more appropriately to questions and commands. Awaiting for PT/OT to evaluate the patient. Patient was seen and evaluated by psychiatry recommending medications and also discussed with mother Elizabet who was made emergency guardian who is willing to pick the patient up once discharged and will follow in the outpatient setting for psychiatric care and counseling. She is agreeable to have the patient lives with her upon discharge. Patient continues to have low-grade fevers and being transitioned oral Augmentin. Patient does have a sitter at the bedside for safety. Neurology following the patient as well. Objective - Vital Signs Vital signs: Vital Signs Temp 99.0 F 09/29/19 08:00 Pulse 89 09/29/19 14:00 Resp 17 09/29/19 14:00 BP 134/91 09/29/19 08:00 Pulse Ox 92 L 09/29/19 12:00 Intake & Output 09/28/19 09/29/19 09/29/19 18:59 06:59 18:59 Intake Total 1391.19 1635 305 Output Total 4550 4130 1325 Balance -3158.81 -2495 -1020 Weight 116.4 kg Intake: IV 900 1275 305 Keppra IVBP 100 Piperacillin-Tazobactam 3 200 .375 gm In Sodium Chloride 0.9% 100 ml @ 25 mls/hr IVPB Q8H DAKSHA Rx#: [id number] Sodium Chloride 0.9% 1, 900 975 305 000 ml @ 20 mls/hr IV . Q24H DAKSHA Rx#:[id number] Intake, IV Titration 89.19 Amount Propofol 1,000 mg In 89.19 Empty Bag 1 bag @ Titrate IV .Q0M DAKSHA Rx#: [id number] Oral 57 360 Tube Feeding 285 Other 60 Output: Urine 4550 4130 1325 Other: Voiding Method Indwelling Catheter Indwelling Catheter ABP, PAP, CO, CI - Last Documented Arterial Blood Pressure 154/83 - Exam GENERAL: 24-year-old male recently extubated yesterday, alert and oriented 2-3, following simple commands. Less agitated and redirectable HEENT: Pupils are round and equally reacting to light. EOMI. No scleral icterus. No conjunctival pallor. Normocephalic, atraumatic. No pharyngeal erythema. No thyromegaly. CARDIOVASCULAR: S1 and S2 present. No murmurs, rubs, or gallops. PULMONARY: Chest is clear to auscultation, no wheezing or crackles. ABDOMEN: Soft, nondistended, normoactive bowel sounds. No palpable organomegaly. MUSCULOSKELETAL: No joint swelling or deformity. EXTREMITIES: No cyanosis, clubbing, or pedal edema. NEUROLOGICAL: Awake, alert and oriented 2-3, less agitated SKIN: No rashes. Multiple tattoos noted - Labs CBC & Chem 7: 09/29/19 04:15 09/29/19 13:10 Labs: Abnormal Lab Results - Last 24 Hours (Table) 09/29/19 09/29/19 09/29/19 Range/Units 04:15 04:15 06:13 Hgb 12.8 L (13.0-17.5) gm/dL Creatinine 0.60 L (0.66-1.25) mg/dL POC Glucose (mg/dL) 110 H (75-99) mg/dL Total Protein 6.2 L (6.3-8.2) g/dL Albumin 3.4 L (3.5-5.0) g/dL 09/29/19 Range/Units 12:47 Hgb (13.0-17.5) gm/dL Creatinine (0.66-1.25) mg/dL POC Glucose (mg/dL) 105 H (75-99) mg/dL Total Protein (6.3-8.2) g/dL Albumin (3.5-5.0) g/dL Microbiology - Last 24 Hours (Table) 09/26/19 16:00 Blood Culture - Preliminary Blood No Growth after 48 hours 09/26/19 16:00 Blood Culture - Preliminary Blood No Growth after 48 hours 09/26/19 16:00 Gram Stain - Final Sputum Sputum Culture - Final Assessment and Plan Assessment: -Altered mental status, toxic encephalopathy secondary to drug overdose actual drug the patient overdosed on is not clear as mentioned in interval history although culprit may have been baclofen although toxicology only showing marijuana. Patient was initiated on baclofen and also Keppra for seizure precautions. Per friend who was also intubated in the same manner has been recently extubated and states they were taking large amounts of gabapentin along with marijuana and attempts to get high. -Acute respiratory failure, patient does have acute hypoxic and hypercapnic respiratory failure. recently extubated yesterday -Toxic encephalopathy due to drug overdose, patient continues to be slightly confused but has been following commands more appropriately and responding to questions more appropriately. Patient is less agitated. -History of seizures in the past patient has some clonic activity because of which patient was resumed on antiseizure medications. neurology following. -Possible aspiration pneumonia for which patient patient was Zosyn which will be transitioned to oral Augmentin. Blood Cultures remain negative. Sputum cu ltures preliminary showing gram-positive cocci, patient continues to have intermittent low-grade fevers -History of asthma not in acute exacerbation patient does have history of smoking -Anxiety disorder Plan: Continue with close monitoring in the ICU and jewel bearing polisher following. Awaiting for transfer out of the ICU to a [facility] unit once a bed becomes available. Neurology following. Patient to continue with the one-to-one sitter for safety as he was agitated with attempts to leave AGAINST MEDICAL ADVICE last night. Patient was seen and evaluated by psychiatry recommending outpatient follow-up and mother who is emergency guardian is willing to take him home with her once discharged. PT/OT to evaluate the patient. Further recommendations to follow. Will continue to monitor closely. Possible discharge in 24-48 hours.
--- NOTE | 2019-09-29 17:46 | P.PN ---
Subjective Progress Note Date: 09/29/19 Patient was extubated yesterday. Today he is much more alert and awake. He is sitting on the side of the bed, wants to go home. Patient did confessed that he overdosed on baclofen. Patient states that they were 30 tablets and he and his friend took half each. Patient states he never had any history of seizures. Patient's EEG showed no epileptiform activity. Objective - Vital Signs Vital signs: Vital Signs Temp 98.2 F 09/29/19 16:00 Pulse 81 09/29/19 16:00 Resp 17 09/29/19 16:00 BP 162/95 09/29/19 16:00 Pulse Ox 95 09/29/19 16:00 Intake & Output 09/28/19 09/29/19 09/29/19 18:59 06:59 18:59 Intake Total 1391.19 1635 305 Output Total 4550 4130 2700 Balance -3158.81 -5583 -2398 Weight 116.4 kg Intake: IV 900 1275 305 Keppra IVBP 100 Piperacillin-Tazobactam 3 200 .375 gm In Sodium Chloride 0.9% 100 ml @ 25 mls/hr IVPB Q8H DAKSHA Rx#: [id number] Sodium Chloride 0.9% 1, 900 975 305 000 ml @ 20 mls/hr IV . Q24H DAKSHA Rx#:[id number] Intake, IV Titration 89.19 Amount Propofol 1,000 mg In 89.19 Empty Bag 1 bag @ Titrate IV .Q0M DAKSHA Rx#: [id number] Oral 57 360 Tube Feeding 285 Other 60 Output: Urine 4550 4130 2700 Other: Voiding Method Indwelling Catheter Indwelling Catheter Urinal # Voids 1 # Bowel Movements 1 ABP, PAP, CO, CI - Last Documented Arterial Blood Pressure 154/83 - Exam Patient is very alert and awake. Patient's mentation appears normal. Strength appears normal. Still slightly off balance. - Labs CBC & Chem 7: 09/29/19 04:15 09/29/19 13:10 Labs: Abnormal Lab Results - Last 24 Hours (Table) 09/29/19 09/29/19 09/29/19 Range/Units 04:15 04:15 06:13 Hgb 12.8 L (13.0-17.5) gm/dL Creatinine 0.60 L (0.66-1.25) mg/dL POC Glucose (mg/dL) 110 H (75-99) mg/dL Total Protein 6.2 L (6.3-8.2) g/dL Albumin 3.4 L (3.5-5.0) g/dL 09/29/19 Range/Units 12:47 Hgb (13.0-17.5) gm/dL Creatinine (0.66-1.25) mg/dL POC Glucose (mg/dL) 105 H (75-99) mg/dL Total Protein (6.3-8.2) g/dL Albumin (3.5-5.0) g/dL Microbiology - Last 24 Hours (Table) 09/26/19 16:00 Blood Culture - Preliminary Blood No Growth after 48 hours 09/26/19 16:00 Blood Culture - Preliminary Blood No Growth after 48 hours Assessment and Plan Assessment: * Drug overdose with baclofen, possible Robaxin, some marijuana and alcohol. * History of substance abuse. * Status post Ventilator-dependent respiratory failure, extubated today. * No history of seizure disorder. Plan: * Patient states he never had any history of seizures. Patient will be given one dose of Keppra 500 mg tomorrow and then discontinue (rapid taper off). His EEG did not reveal any epileptiform activity. * Neurologically clear. * We will sign off.
[2019-09-29] MEDS ORDERED: MELATONIN 5 MG TABLET PO SCH (21:00)
[2019-09-30 05:10] LABS: Basophils # (A) 0.1 k/uL (0-0.2); Basophils % (A) 0 %; Eosinophils # (A) 0.2 k/uL (0-0.7); Eosinophils % (A) 2 %; HCT 42.1 % (39.0-53.0); HGB 14.5 gm/dL (13.0-17.5); Lymphocytes # (A) 1.5 k/uL (1.0-4.8); Lymphocytes % (A) 13 %; MCH 30.5 pg (25.0-35.0); MCHC 34.5 g/dL (31.0-37.0); MCV 88.5 fL (80.0-100.0); Mean Platelet Volume 7.6; Monocytes # (A) 0.7 k/uL (0-1.0); Monocytes % (A) 6 %; Neutrophils # (A) 8.4 k/uL (1.3-7.7); Neutrophils % (A) 76 %; Platelet Count 410 k/uL (150-450); RBC 4.76 m/uL (4.30-5.90); RDW 12.4 % (11.5-15.5); WBC 11.1 k/uL (3.8-10.6)
[2019-09-30 05:17] LABS: ALT 63 U/L (4-49); AST 72 U/L (17-59); African American GFR (CKD) >90 (>60 ml/min/1.73 sqM); Alkaline Phosphatase 121 U/L (38-126); Anion Gap 12 mmol/L; Blood Urea Nitrogen 15 mg/dL (9-20); Calcium 9.6 mg/dL (8.4-10.2); Carbon Dioxide 22 mmol/L (22-30); Chloride 103 mmol/L (98-107); Glucose 103 mg/dL (74-99); Non-African American GFR(CKD) >90 (>60 ml/min/1.73 sqM); Potassium 3.9 mmol/L (3.5-5.1); Sodium 137 mmol/L (137-145); Total Bilirubin 0.6 mg/dL (0.2-1.3); Total Protein 7.3 g/dL (6.3-8.2)
[2019-09-30] MEDS: SODIUM CHLORIDE 0.9% 1,000 ML IV SCH (05:20)
[2019-09-30] MEDS ORDERED: ONDANSETRON 4 MG/2 ML VIAL IVP PRN (06:11)
[2019-09-30] MEDS: HEPARIN SODIUM,PORCINE 5,000 UNIT/ML 1 ML VIAL SQ SCH (08:35)
[2019-09-30] MEDS: AMOXIC-POT CLAV 875-125MG 1 EACH TAB PO SCH (08:35)
[2019-09-30] MEDS: PANTOPRAZOLE 40 MG/10 ML VIAL IV SCH (08:35)
[2019-09-30] MEDS: SERTRALINE 50 MG TAB PO SCH (08:35)
[2019-09-30] MEDS: THIAMINE 100 MG/ML 2 ML VIAL IVP SCH (08:35)
[2019-09-30 08:45] VITALS: BP 137/91; PULSE 57; RESP 18; TEMP 98.2
--- NOTE | 2019-09-30 10:27 | P.PN ---
Subjective Progress Note Date: 09/30/19 Principal diagnosis: Drug Overdose, suspected baclofen overdose This is a 24-year-old white male, admitted last night from the ER. Patient presented to the ER after he had a large amount of tequila along with muscle relaxers. It is not clear whether the patient used any undetectable opioid in the drug screen, possibly carfentanyl. Apparently when the patient was brought into the ER, he was obtunded, had altered mental status, no obvious injuries were noted. Patient had to be intubated almost as soon as he was brought in by EMS to the ER. According to EMS he was only responsive to deep painful stimuli. Received Narcan with no change whatsoever in his mental status, he did have episodes of extreme agitation on the way to the emergency room. Another friend had similar symptoms upon arrival to the ER, and both were intubated immediately. A drug screen came back showing mostly positive for marijuana. Otherwise the drug screen was completely negative. At any rate patient was intubated, placed on mechanical ventilation, and I saw him this morning. Presently on propofol. His ventilator settings are assist control rate of 20 FiO2 is 30% PEEP is 5 tidal volume is 500. ABG this morning showed a pO2 of 159 pCO2 of 41 pH of 7.42. Patient was quite sedated, however as soon as the propofol was discontinued, patient woke up but extremely agitated, unable to follow any instructions, unable to maintain any eye contact, hence no further plans for weaning or extubation were considered at that point. Patient will be tried on Precedex, and if not tolerated, may switch him back to propofol for the next 24 hours. Chest x-ray showed no evidence of active disease. Patient was reevaluated today on 09/24/19, remains in the ICU, intubated and mechanically ventilated. Patient is on assist control rate of 20 tidal volume is 500 FiO2 is 40% and PEEP of 5. His ABG today showed a pO2 of 82 pCO2 of 41 pH of 7.42. Chest x-ray showed no evidence of active disease, lungs are well aerated, no focal consolidation or infiltrate, endotracheal tube was noted to be high in the trachea and it will be advanced down 2 cm at least. His labs including his CBC and basic metabolic profile are noted to be normal. Today we have attempted to wean off propofol and assess the patient could be weaned and extubated. However the patient became extremely agitated, restless, and he was biting on the endotracheal tube, and could not be sedated to properly ventilate him. Hence Nimbex was given in addition to higher dose of propofol and higher dose of fentanyl. After Nimbex, patient was noted to have significantly elevated blood pressure, and I was concerned about the possibility of underlying seizures mass by Nimbex, hence I recommended stopping the Nimbex immediately. I also recommended switching propofol to Versed and I have kept him on fentanyl at 2 mcg/kg/h. I have also recommended Ativan 2 mg IV push 1. That seemed to help significantly. In the meantime I have recommended neurological evaluation. Dr. Amato saw the patient, and discussed the issue of potential baclofen overdose with the poison control. They were already notified about this patient upon admission, and the recommendation was supportive care measures only. They are still recommending supportive care measures, but they're also concerned about the possibility that baclofen has a long half-life, and if the patient chronically abuses baclofen, there is a concern about baclofen withdrawal well, and recommending at least small dose of baclofen to be given via nasogastric tube. And this was recommended by neurology on the case. In the meantime considering the patient has history of seizure disorder, Keppra was also added. Now the patient is on Versed which is being titrated, discontinued propofol, kept him on fentanyl, we will use Ativan intermittently as needed, Keppra was added by neurology. And recommended Lioresal/baclofen via nasogastric tube 10 mg 3 times a day. Nimbex was discontinued. IV fluid was increased to 1 25 mL per hour. And the plan is to start patient on enteral feeding today. The patient was seen today 09/25/2019 in follow-up in the intensive care unit. He remains intubated and on the mechanical ventilator with settings of before meals plus. Tidal volume 500, respiratory rate 22, FiO2 100% and a PEEP of 8. Morning blood gases reveal a pCO2 of 89, CO2 of 40 and a pH is 7.4. Throughout the night he had issues with recurrent hypoxemia requiring the FiO2 to be increased to 100%, this was shortly after repositioning for a chest x-ray. He is currently sedated on propofol at 40 mcg/kg/m. Versed at 20 mg per hour. Fentanyl at 2.5 mcg/kg per hour. He is being nourished with vital AF at 50 MLS per hour. Goal is 57 ML's per hour. His EEG did reveal severe encephalopathy. He has been seen by neuro services. He is currently on baclofen and Keppra. Antibiotics in the form of Zosyn. Sputum culture revealed no growth. Chest x-r ay reveals evidence of right pleural effusion and bilateral lower lobe infiltrates. White count 13.0. Hemoglobin 13.0. Sodium 136. Potassium 3.7. Chloride 108. Bicarb 23. Creatinine 0.75. Prolactin 22.5. He's had borderline blood pressures and borderline urine output. Reevaluated today on 09/26/19, patient remains in the intensive care unit, intubated, and mechanically ventilated. His ventilator settings are assist control rate of 22 tidal volume is 500 FiO2 is 50% and PEEP is 8. Chest x-ray is showing worsening bilateral airspace disease, and possibly a right-sided pleural effusion. Patient is still requiring significant amount of sedation, he is on Versed at 20 mg per hour, propofol at 60 mcg/kg/m, fentanyl at 2 mcg/kg/h, and he is on norepinephrine at 0.03 mcg/kg/m. His IV fluid is at 1 25 mL per hour in the form of 0.9 normal saline. Patient gets extreme agitation on lower sedation, and he did not have good tolerance to Nimbex. His temperature seems to be fluctuating up and down, at one point he was receiving Tylenol for high elevated temperature, and now he is on cooling blankets for low and pressure with a temp of 95. I recommended serum cortisol level to be checked. I have also recommended that we continue Zosyn, Lasix was ordered today because of his bilateral pleural effusions, I have increased his rate to 24, and cut down his IV fluid to 75 mL per hour. No plans to wean the patient today as he is not ready. Previous attempts to wean the patient revealed that the patient is extremely agitated, gets quite restless, and takes at least 4 people to hold him down although he is on sedatives and narcotics for sedation. Labs today showed a pO2 of 77 pCO2 of 48 pH of 7.33 hence his respiratory rate was increased to 24. His electrolytes are normal renal profile is normal CBC is relatively normal. 09/29/2019 patient seen in follow-up in the intensive care unit. Patient was successfully weaned and extubated from the mechanical ventilator yesterday on 09/28/2019. Following extubation he did have periods of confusion, and agitation requiring doses of antipsychotics. On today's exam patient seems to be a lot [place], he is answering questions appropriately, she knew she took 30 pills of baclofen and he denied any suicidal ideations, he states him and his friend were just trying to get high. Room air pulse ox is 91-92%, hemodynamically she is stable, he did have low-grade fevers last night, with a T-max in the last 24 hours of 100.0F, patient does have follow-up follow-up chest x-ray from today which shows resolved left basilar Atelectasis and/or infiltrate, and persistent right basilar Infiltrate which seems to be slightly improved compared to yesterday, patient is on Zosyn for empiric antibiotic coverage, blood and sputum cultures have been negative, today's labs have been reviewed showing normal white count of 9.9, hemoglobin of 12.8, platelet count of 295, electrolytes and renal profile were unremarkable. Patient has had no seizure episodes, neurology is following, patient continues on Keppra and Baclofen. Continues on thiamine replacement. Clinically stable, mentation is improving, patient is fairly cooperative, apparently he did attempt to leave AGAINST MEDICAL ADVICE last night however in view of his confusion safety lamp keeper was placed at the bedside, and patient was prevented from leaving in view of not being able to make sound medical decisions for himself. On 09/30/2019 patient seen in follow-up in intensive care unit. Patient was successfully extubated on 09/28/2019, tolerating extubation quite well, she is on room air, with a pulse ox of 93-99%, hemodynamically stable, no fever or chills, respirations nonlabored, lung sounds are essentially clear to auscultation, no rhonchi, no wheezing, no cough or phlegm production, remains on oral Augmentin for bibasilar pneumonia, which was improving and yesterday's chest x-ray, today's lab work has been reviewed, white blood cell count is 11.1, hemoglobin of 14.5, electrolytes and renal profile were within normal limits, AST 72, ALT is 63, alk phos is 121, patient is calm and comfortable, he is alert and oriented 3, no signs of delirium, no signs of withdrawal or seizures. He is a safety lamp keeper at the bedside, he was evaluated by psychiatry, Zoloft was added, along with melatonin. Outpatient follow-up was recommended for psychiatric needs. Objective - Vital Signs Vital signs: Vital Signs Temp 98.2 F 09/30/19 08:00 Pulse 57 L 09/30/19 08:00 Resp 18 09/30/19 08:00 BP 137/91 09/30/19 08:00 Pulse Ox 93 L 09/30/19 08:00 Intake & Output 09/29/19 09/30/19 09/30/19 18:59 06:59 18:59 Intake Total 555 Output Total 2700 Balance -2145 Intake: IV 305 Sodium Chloride 0.9% 1, 305 000 ml @ 20 mls/hr IV . Q24H DAKSHA Rx#:[id number] Oral 250 Output: Urine 2700 Other: Voiding Method Urinal Urinal Urinal # Voids 1 1 # Bowel Movements 1 ABP, PAP, CO, CI - Last Documented Arterial Blood Pressure 154/83 - Exam GENERAL EXAM: Alert, 24-year-old white male, on room air, with a pulse ox of 93% resting in bed, his questions appropriately, he thought he was in [facility] but knew the year, he knew the president, is recalling events correctly comfortable in no apparent distress. HEAD: Normocephalic/atraumatic. EYES: Normal reaction of pupils, equal size. Conjunctiva pink, sclera white. NOSE: Clear with pink turbinates. THROAT: No erythema or exudates. NECK: No masses, no JVD, no thyroid enlargement, no adenopathy. CHEST: No chest wall deformity. Symmetrical expansion. LUNGS: Equal air entry with no crackles, wheeze, rhonchi or dullness. CVS: Regular rate and rhythm, normal S1 and S2, no gallops, no murmurs, no rubs ABDOMEN: Soft, nontender. No hepatosplenomegaly, normal bowel sounds, no guarding or rigidity. EXTREMITIES: No clubbing, no edema, no cyanosis, 2+ pulses and upper and lower extremities. MUSCULOSKELETAL: Muscle strength and tone normal. SPINE: No scoliosis or deformity SKIN: No rashes CENTRAL NERVOUS SYSTEM: Alert and oriented -3. No focal deficits, tone is normal in all 4 extremities. PSYCHIATRIC: Alert and oriented -3. Appropriate affect. Intact judgment and insight. - Labs CBC & Chem 7: 09/30/19 04:38 09/30/19 04:38 Labs: Abnormal Lab Results - Last 24 Hours (Table) 09/29/19 09/30/19 09/30/19 Range/Units 12:47 04:38 04:38 WBC 11.1 H (3.8-10.6) k/uL Neutrophils # 8.4 H (1.3-7.7) k/uL Glucose 103 H (74-99) mg/dL POC Glucose (mg/dL) 105 H (75-99) mg/dL AST 72 H (17-59) U/L ALT 63 H (4-49) U/L Microbiology - Last 24 Hours (Table) 09/26/19 16:00 Blood Culture - Preliminary Blood No Growth after 72 hours 09/26/19 16:00 Blood Culture - Preliminary Blood No Growth after 72 hours Assessment and Plan Plan: Assessment: #1. Drug overdose, patient had mistaken of 30 tablets of baclofen. #2. Altered mental status, and patient was intubated for protection of his airway on 09/22/2019, successfully weaned and extubated on 09/29/2019. Altered mental status is related to acute drug overdose, and has resolved #3. Bibasilar pneumonia, improving on today's chest x-ray, right greater than l eft basilar infiltrates, most likely related to aspiration #4. History of substance abuse including methamphetamine, heroin, alcohol and marijuana #5. Remote history of epilepsy #6. Possibility of seizure related to withdrawal, neurology is following and patient has been on Keppra and baclofen #7. History of bronchial asthma, presently stable #8. Acute metabolic encephalopathy/toxic encephalopathy secondary to drug overdose Plan: Doing well, no shortness of breath, he remains on room air, remains on Augmentin, no shortness of breath, no cough or congestion. Psychiatric consultation note was noted, mentation is appropriate, no seizure activity, vital signs are stable, no fever or chills, patient is stable for discharge home today he can finish outpatient course of oral antibiotics. I performed a history & physical examination of the patient and discussed their management with my nurse practitioner, Carolina Chapa. I reviewed the nurse practitioner's note and agree with the documented findings and plan of care. Lung sounds are positive for diminished breath sounds. The findings and the impression was discussed with the patient. I attest to the documentation by the nurse practitioner. Time with Patient: Less than 30
[2019-09-30 10:46] VITALS: BMI 32.9
--- NOTE | 2019-09-30 10:59 | P.DS ---
Providers Date of admission: 09/22/19 21:11 Expected date of discharge: 09/30/19 Attending physician: Gustabo Koch Consults: 09/22/19 20:53 Consult Physician Stat Consulting Provider: Malini Bush Consult Reason/Comments: ICU management Do you want consulting provider notified?: Already Contacted 09/24/19 10:41 Consult Physician Routine Consulting Provider: Karen Amato Consult Reason/Comments: r/o seizure Do you want consulting provider notified?: Yes 09/29/19 08:22 Consult Physician Urgent Consulting Provider: Jerod Menendez Consult Reason/Comments: baclofen overdose, substance abuse, psychosis Do you want consulting provider notified?: Yes Primary care physician: Stated None Hospital Course: Final diagnoses -Altered mental status, toxic encephalopathy secondary to drug overdose -Acute respiratory failure, patient does have acute hypoxic and hypercapnic respiratory failure, status post intubation and extubation -Toxic encephalopathy due to drug overdose -Covid 19 ruled out -Possible aspiration pneumonia -History of asthma not in acute exacerbation patient does have history of smoking -Anxiety disorder Discharge disposition Patient is being discharged in a stable condition with guarded prognosis to home with his mother Elizabet. Patient will need to establish with a primary care provider as she is currently looking for one. Patient will also need psychiatric follow-up in the outpatient setting along with some counseling. Patient will continue short course of oral antibiotics in the form of Augmentin to complete a course. Total time taken is 35 minutes. History of present illness This is a 24-year-old male who was recently admitted with drug overdose requiring intubation and was being closely monitored. Patient was closely monitored in the ICU. There was a possibility of baclofen overdose and was being closely monitored for baclofen withdrawal. Toxicology report only showed marijuana. Patient recently extubated and does admit to taking approximately 30 pills shared with his friend a baclofen along with alcohol and marijuana. Patient denies any suicidal ideation and was not trying to hurt himself but was attempting to be high. Patient was being followed by neurology which most recent EEG showing no epileptiform activity. Keppra was discontinued. Baclofen was also discontinued as he does not take this normally and was not exhibiting any signs of withdrawal. Emergency guardianship was provided to his mother Elizabet who was agreeable to taking him home and finding a primary care provider along with psychiatry in the outpatient setting for close follow-up. Patient has currently been taking Augmentin and will continue to course for the next 5 days. Patient was also seen and evaluated by psychiatry here recom mending close outpatient follow-up. Patient instructed to refrain from any alcohol, tobacco, marijuana use at this time. Patient verbalizes understanding. No reports of chest pain, shortness of breath, or palpitations. Patient is afebrile. No reports of nausea or vomiting and patient is tolerating diet. Patient will be discharged to his mother today. On exam vital signs are stable. Temp is 98.2F, pulse is 57, respirations are 18, blood pressure is 137/91, oxygen saturation is 98% on room air. Cardio S1, S2 are present. Respiratory system shows clear to auscultation. Abdomen is so ft and nontender. Nervous system shows no focal deficits. Please refer to medication reconciliation sheet for a list of medications. Patient Condition at Discharge: Stable Plan - Discharge Summary Discharge Rx Participant: Yes New Discharge Prescriptions: New Amoxic-Pot Clav 875-125Mg [Augmentin 875-125] 1 each PO Q12HR 5 Days #10 tab Sertraline [Zoloft] 50 mg PO DAILY 30 Days #30 tab Discharge Medication List Amoxic-Pot Clav 875-125Mg [Augmentin 875-125] 1 each PO Q12HR 5 Days #10 tab 09/30/19 [Rx] Sertraline [Zoloft] 50 mg PO DAILY 30 Days #30 tab 09/30/19 [Rx] Follow up Appointment(s)/Referral(s): None,Stated [Primary Care Provider] - 1-2 days Patient Instructions/Handouts: Altered Mental Status (GEN), Medical Clearance for Substance Abuse Treatment (DC) Activity/Diet/Wound Care/Special Instructions: Patient is to be discharged with mother Elizabet Activity Limited until follow-up Patient is to follow-up with obtaining a primary care provider Patient to follow-up with psychiatric care and counseling Avoid all alcohol, tobacco, marijuana use Take antibiotics for the next 5 days until finished Continue current diet Discharge Disposition: HOME SELF-CARE
[2019-09-30] MEDS ORDERED: levETIRAcetam 500 MG TAB PO STA (11:12)
== END 2019-09-30 11:45 | disposition home or self-care (01) | DRG 917 ==
LOC: EC 19:17 → EEVIPCON 21:11 → 2SICU 21:11
PROVIDERS: ADMIT Hospitalist; ATTEND Hospitalist
PROC: 5A1955Z Respiratory Ventilation, Greater than 96 Consecutive Hours (ICD-10-PCS; principal; 2019-09-22)
PROC: 0BH17EZ Insertion of Endotracheal Airway into Trachea, Via Natural or Artificial Opening (ICD-10-PCS; principal; 2019-09-22)
PROC: 04HK33Z Insertion of Infusion Device into Right Femoral Artery, Percutaneous Approach (ICD-10-PCS; 2019-09-24)
PROC: 06HM33Z Insertion of Infusion Device into Right Femoral Vein, Percutaneous Approach (ICD-10-PCS; 2019-09-24)
DX: T42.8X1A Poisoning by antiparkinsonism drugs and other central muscle-tone depressants, accidental (unintentional), initial encounter (principal); G92 Toxic encephalopathy; J69.0 Pneumonitis due to inhalation of food and vomit; J96.01 Acute respiratory failure with hypoxia; J96.02 Acute respiratory failure with hypercapnia; G40.509 Epileptic seizures related to external causes, not intractable, without status epilepticus; J90 Pleural effusion, not elsewhere classified; J98.11 Atelectasis; F17.200 Nicotine dependence, unspecified, uncomplicated; F41.9 Anxiety disorder, unspecified; J45.909 Unspecified asthma, uncomplicated; F12.10 Cannabis abuse, uncomplicated; F10.10 Alcohol abuse, uncomplicated; Z11.59 Encounter for screening for other viral diseases; R45.1 Restlessness and agitation; F32.9 Major depressive disorder, single episode, unspecified; F43.20 Adjustment disorder, unspecified; F39 Unspecified mood [affective] disorder; Z63.8 Other specified problems related to primary support group
CPT/HCPCS: 31500; 36415; 36600; 70450; 71045; 80048; 80053; 80202; 80306; 80307; 80320; 80329; 80377; 81003; 82140; 82375; 82533; 82550; 82805; 83520; 83605; 83690; 83735; 83789; 84132; 84146; 85025; 85652; 86140; 87040; 87070; 87205; 87635; 93005; 94002; 94003; 95816; 96361; 96374; 96375; 99291

== ENCOUNTER → 2020-06-28 | Outpatient (CLI) | payer OTHER | END | disposition home or self-care (01) | LOC: LABWHC1 12:04 → EEVIPCON 12:04 | PROVIDERS: ATTEND Emergency Medicine | DX: Z20.822 Contact with and (suspected) exposure to COVID-19 (principal) | CPT/HCPCS: U0003; C9803; U0005 ==

== ENCOUNTER 2020-07-12 12:14 | Emergency (ER) | payer OTHER ==
[2020-07-12 12:18] VITALS: RESP 18
[2020-07-12] MEDS ORDERED: KETOROLAC 15 MG/ML 1 ML VIAL IM STA (12:51)
[2020-07-12] MEDS ORDERED: methylPREDNISolone SOD SUCCI 125 MG/2 ML VIAL IM STA (12:51)
--- NOTE | 2020-07-12 13:11 | XR ---
EXAMINATION TYPE: XR lumbar spine 2 or 3V DATE OF EXAM: 07/12/2020 CLINICAL HISTORY: pain TECHNIQUE: Three views of the lumbar spine are submitted. COMPARISON: None. FINDINGS: There are 5 lumbar type vertebral bodies identified. The lumbar spine shows satisfactory alignment w ithout evidence of acute fracture or dislocation. Vertebral body heights are within normal limits. Disc spaces are within normal limits. The overlying soft tissue appears unremarkable. IMPRESSION: No acute fracture or dislocation is seen in the lumbar spine. ICD 10 NO FRACTURE, INITIAL EVALUATION
--- NOTE | 2020-07-12 13:38 | ED ---
General Adult HPI - General Chief complaint: Back Pain/Injury Stated complaint: Back pain Source: patient Mode of arrival: wheelchair Limitations: no limitations - History of Present Illness Initial comments: 24-year-old male presents to the emergency room for a chief complaint of back pain. Patient was shoveling snow and felt a strain in his back. States it is worse on the left side and radiates down into the left leg. Patient states that movement worsens the pain especially going from laying to sitting up or standing. Denies any weakness of the left leg. Denies any loss of sensation to the left leg. Denies any saddle anesthesia, fevers, bladder or bowel changes. Patient states he has been taking Motrin which hasn't been helping. Patient states he needs a note for work.Patient has no other complaints at this time including shortness of breath, chest pain, abdominal pain, nausea or vomiting, headache, or visual changes. - Related Data Previous Rx's Medication Instructions Recorded Amoxic-Pot Clav 875-125Mg 1 each PO Q12HR 5 Days #10 tab 09/30/19 [Augmentin 875-125] Sertraline [Zoloft] 50 mg PO DAILY 30 Days #30 tab 09/30/19 predniSONE 50 mg PO DAILY #5 tablet 07/12/20 Allergies Allergy/AdvReac Type Severity Reaction Status Date / Time No Known Allergies Allergy Verified 09/30/19 10:50 Review of Systems ROS Statement: Those systems with pertinent positive or pertinent negative responses have been documented in the HPI. ROS Other: All systems not noted in ROS Statement are negative. Past Medical History Past Medical History: Asthma History of Any Multi-Drug Resistant Organisms: None Reported Past Surgical History: No Surgical Hx Reported Past Psychological History: Anxiety Past Alcohol Use History: Occasional Past Drug Use History: None Reported General Exam Limitations: no limitations General appearance: alert, in no apparent distress Head exam: Present: atraumatic, normocephalic Eye exam: Present: normal appearance, PERRL, EOMI. Absent: scleral icterus, conjunctival injection ENT exam: Present: normal exam, mucous membranes moist Neck exam: Present: normal inspection, full ROM. Absent: tenderness Respiratory exam: Present: normal lung sounds bilaterally. Absent: respiratory distress, wheezes Cardiovascular Exam: Present: regular rate, normal rhythm, normal heart sounds GI/Abdominal exam: Present: soft, normal bowel sounds. Absent: distended, tenderness Extremities exam: Present: normal capillary refill (Capillary refill less than 2 seconds, DP pulse 2+ left lower extremity) Back exam: Present: paraspinal tenderness (L Sided paraspinal tenderness). Absent: full ROM (Patient able to flex spine to 45, extension to neutral position) Course Vital Signs 07/12/20 12:15 Temperature 98.0 F Pulse Rate 102 H Respiratory 18 Rate Blood Pressure 115/73 O2 Sat by Pulse 100 Oximetry Medical Decision Making - Medical Decision Making Vitals are stable. Patient is well-appearing. Patient has pain after shoveling. This is reproducible and consistent with musculoskeletal pain. X- ray negative for fracture. Patient likely does have lumbar radiculopathy given shooting pain down leg. Will be treated with steroids. Discussed only using Tylenol and not Motrin with this. He will return here for any worsening symptoms. Disposition Clinical Impression: Mechanical back pain Disposition: HOME SELF-CARE Condition: Good Instructions (If sedation given, give patient instructions): Acute Low Back Pain (ED) Additional Instructions: Please follow up with orthopedics for possible MRI as we cannot do this through the emergency room. Please take steroid as directed. Take Tylenol for pain as needed every 6 hours. You should not take Motrin while taking the steroid. Return to the emergency room for any worsening symptoms. Prescriptions: predniSONE 50 mg PO DAILY #5 tablet Is patient prescribed a controlled substance at d/c from ED?: No Referrals: Elton Gomes DO [Doctor of Osteopathic Medicine] - 1-2 days Time of Disposition: 13:37
[2020-07-12 13:51] VITALS: BP 120/77; PULSE 67; TEMP 98.2
== END 2020-07-12 13:50 | disposition home or self-care (01) ==
LOC: EC 12:14
DX: M54.9 Dorsalgia, unspecified (principal)
CPT/HCPCS: 72100; 99283; 96372 ×2; J2930; J1885

== ENCOUNTER 2021-02-26 11:32 | Emergency (ER) | payer OTHER ==
[2021-02-26 11:56] VITALS: RESP 18; TEMP 98.6
--- NOTE | 2021-02-26 13:23 | ED ---
Extremity Problem HPI - General Chief complaint: Extremity Problem,Nontraumatic Stated complaint: Foot pain Time Seen by Provider: 02/26/21 12:51 Source: patient, RN notes reviewed Mode of arrival: ambulatory - History of Present Illness Initial comments: Patient is a 25-year-old male that presents to emergency department complaining of bilateral athlete's foot and some toenail fungus. He notes that he was treated in alf with doxycycline and topical antifungals. He notes that this seemed to keep it at bay but has since gotten worse as she has run out of medication. He denied any other issues or complaints. He was otherwise well- appearing 25-year-old male in no apparent distress or pain. He denied any chest pain shortness of breath headache nausea vomiting diarrhea constipation fever fatigue chills. - Related Data Previous Rx's Medication Instructions Recorded Amoxic-Pot Clav 875-125Mg 1 each PO Q12HR 5 Days #10 tab 09/30/19 [Augmentin 875-125] Sertraline [Zoloft] 50 mg PO DAILY 30 Days #30 tab 09/30/19 predniSONE 50 mg PO DAILY #5 tablet 07/12/20 Butenafine HCl [Lotrimin Ultra] 1 applic TOPICAL BID #24 gm 02/26/21 Doxycycline Monohydrate [Monodox] 100 mg PO Q12HR #20 cap 02/26/21 Terbinafine [LamISIL] 250 mg PO DAILY 84 Days #84 tablet 02/26/21 Allergies Allergy/AdvReac Type Severity Reaction Status Date / Time No Known Allergies Allergy Verified 02/26/21 11:56 Review of Systems ROS Statement: Those systems with pertinent positive or pertinent negative responses have been documented in the HPI. ROS Other: All systems not noted in ROS Statement are negative. Past Medical History Past Medical History: Asthma Additional Past Medical History / Comment(s): Back pain, UC, chrons History of Any Multi-Drug Resistant Organisms: None Reported Past Surgical History: No Surgical Hx Reported Past Psychological History: Anxiety Smoking Status: Current every day smoker Past Alcohol Use History: Occasional Past Drug Use History: Marijuana General Exam General appearance: alert, in no apparent distress Head exam: Present: atraumatic, normocephalic, normal inspection Eye exam: Present: normal appearance, PERRL, EOMI. Absent: scleral icterus, conjunctival injection, periorbital swelling ENT exam: Present: normal exam, mucous membranes moist Neck exam: Present: normal inspection Respiratory exam: Present: normal lung sounds bilaterally. Absent: respiratory distress, wheezes, rales, rhonchi, stridor Cardiovascular Exam: Present: regular rate, normal rhythm, normal heart sounds. Absent: systolic murmur, diastolic murmur, rubs, gallop, clicks Extremities exam: Present: normal inspection, full ROM, normal capillary refill. Absent: tenderness, pedal edema, joint swelling, calf tenderness Neurological exam: Present: alert, oriented X3 Psychiatric exam: Present: normal affect, normal mood Skin exam: Present: warm, dry, intact, normal color, other (Bilateral erythema to the toes consistent with follow-up infection. Several toenails thickened and discolored consistent with onychomycosis). Absent: rash Course Vital Signs 02/26/21 11:52 Temperature 98.6 F Pulse Rate 82 Respiratory 18 Rate Blood Pressure 125/65 O2 Sat by Pulse 98 Oximetry Medical Decision Making - Medical Decision Making 45-year-old male with bilateral athlete's foot. Upon physical exam patient did have bilateral athlete's foot with several toes that appear to be affected by the fungus. Patient will be sent several medications to his pharmacy. Highly recommended patient establish a primary care physician. Case discussed with Dr. Malik, patient can discharge home. Disposition Clinical Impression: Tinea pedis, Onychomycosis Disposition: HOME SELF-CARE Condition: Stable Instructions (If sedation given, give patient instructions): Athlete's Foot (ED) Additional Instructions: Please return to the Emergency Department if symptoms worsen or any other concerns. Highly recommend establishing primary care. And following up with them in the next several days. Take medications as prescribed. Prescriptions: Terbinafine [LamISIL] 250 mg PO DAILY 84 Days #84 tablet Butenafine HCl [Lotrimin Ultra] 1 applic TOPICAL BID #24 gm Doxycycline Monohydrate [Monodox] 100 mg PO Q12HR #20 cap Is patient prescribed a controlled substance at d/c from ED?: No Referrals: None,Stated [Primary Care Provider] - 1-2 days Time of Disposition: 13:23
[2021-02-26 13:33] VITALS: BP 126/84; PULSE 85
== END 2021-02-26 13:33 | disposition home or self-care (01) ==
LOC: EC 11:32
DX: B35.3 Tinea pedis (principal); B35.1 Tinea unguium; J45.909 Unspecified asthma, uncomplicated; F41.9 Anxiety disorder, unspecified; F17.200 Nicotine dependence, unspecified, uncomplicated; F12.90 Cannabis use, unspecified, uncomplicated
CPT/HCPCS: 99283

== ENCOUNTER 2021-03-27 10:59 | Emergency (ER) | payer OTHER ==
[2021-03-27] MEDS ORDERED: SODIUM CHLORIDE 0.9% 50 ML IVPB ONE (12:45)
--- NOTE | 2021-03-27 12:50 | ED ---
URI HPI - General Chief Complaint: Upper Respiratory Infection Stated Complaint: coughing/weak Time Seen by Provider: 03/27/21 12:04 Source: patient, RN notes reviewed Mode of arrival: ambulatory Limitations: no limitations - History of Present Illness Initial Comments: Patient is a 25-year-old male that presents to emergency department complaining of upper respiratory tract symptoms and feeling fatigued for the past 2 days. He notes he was sent here by his workplace to get tested for Covid due to him displaying symptoms. Patient was otherwise well-appearing [age] male in no apparent distress or pain. He denied any chest pain headache nausea vomiting diarrhea constipation fever or chills. - Related Data Previous Rx's Medication Instructions Recorded Amoxic-Pot Clav 875-125Mg 1 each PO Q12HR 5 Days #10 tab 09/30/19 [Augmentin 875-125] Sertraline [Zoloft] 50 mg PO DAILY 30 Days #30 tab 09/30/19 predniSONE 50 mg PO DAILY #5 tablet 07/12/20 Butenafine HCl [Lotrimin Ultra] 1 applic TOPICAL BID #24 gm 02/26/21 Doxycycline Monohydrate [Monodox] 100 mg PO Q12HR #20 cap 02/26/21 Terbinafine [LamISIL] 250 mg PO DAILY 84 Days #84 tablet 02/26/21 Allergies Allergy/AdvReac Type Severity Reaction Status Date / Time No Known Allergies Allergy Verified 03/27/21 11:13 Review of Systems ROS Statement: Those systems with pertinent positive or pertinent negative responses have been documented in the HPI. ROS Other: All systems not noted in ROS Statement are negative. Past Medical History Past Medical History: Asthma Additional Past Medical History / Comment(s): Back pain, UC, chrons History of Any Multi-Drug Resistant Organisms: None Reported Past Surgical History: No Surgical Hx Reported Past Psychological History: Anxiety Smoking Status: Current every day smoker Past Alcohol Use History: Occasional Past Drug Use History: Marijuana General Exam Limitations: no limitations General appearance: alert, in no apparent distress, obese Head exam: Present: atraumatic, normocephalic, normal inspection Eye exam: Present: normal appearance, PERRL, EOMI. Absent: scleral icterus, conjunctival injection, periorbital swelling ENT exam: Present: normal exam, mucous membranes moist Neck exam: Present: normal inspection Respiratory exam: Present: normal lung sounds bilaterally. Absent: respiratory distress, wheezes, rales, rhonchi, stridor Cardiovascular Exam: Present: regular rate, normal rhythm, normal heart sounds. Absent: systolic murmur, diastolic murmur, rubs, gallop, clicks GI/Abdominal exam: Present: soft, normal bowel sounds. Absent: distended, tenderness, guarding, rebound, rigid Extremities exam: Present: normal inspection, full ROM, normal capillary refill. Absent: tenderness, pedal edema, joint swelling, calf tenderness Neurological exam: Present: alert, oriented X3 Psychiatric exam: Present: normal affect, normal mood Skin exam: Present: warm, dry, intact, normal color. Absent: rash Course Vital Signs 03/27/21 11:09 Temperature 97.6 F Pulse Rate 105 H Respiratory 18 Rate Blood Pressure 140/75 O2 Sat by Pulse 100 Oximetry Medical Decision Making - Medical Decision Making 25-year-old male with cough, fatigue, shortness of breath. Covid test ordered. Covid test positive. Patient does meet criteria for monoclonal antibody therapy. Patient wishes to undergo IV infusion. Patient is agreed with discharge home after medication. Case discussed with Dr. Sellers, patient can discharge home. - Lab Data Lab Results 03/27/21 Range/Units 11:16 Coronavirus (PCR) Detected A (Not Detectd) Disposition Clinical Impression: COVID Disposition: HOME SELF-CARE Condition: Stable Instructions (If sedation given, give patient instructions): Coronavirus Disease 2019 (COVID-19) Additional Instructions: Please return to the Emergency Department if symptoms worsen or any other concerns. Follow-up with primary care 1-2 days. Conservative management with Tylenol Motrin alternating every 3 hours for any fevers. Is patient prescribed a controlled substance at d/c from ED?: No Referrals: None,Stated [Primary Care Provider] - 1-2 days Time of Disposition: 12:50
[2021-03-27 13:01] VITALS: PULSE 72; TEMP 98.3
[2021-03-27] MEDS ORDERED: CASIRIVIMAB/IMDEVIMAB (EUA) 1,200 MG in SODIUM CHLORIDE 0.9% 100 ML IVPB ONE (13:15)
[2021-03-27 13:59] VITALS: BP 119/77; RESP 16
== END 2021-03-27 15:01 | disposition home or self-care (01) ==
LOC: EC 10:59
DX: U07.1 COVID-19 (principal); J45.909 Unspecified asthma, uncomplicated; F41.9 Anxiety disorder, unspecified; F17.200 Nicotine dependence, unspecified, uncomplicated; F12.90 Cannabis use, unspecified, uncomplicated
CPT/HCPCS: 99284 ×2; 96365; 87635; M0243; Q0243

== ENCOUNTER 2021-06-01 18:55 | Emergency (ER) | payer OTHER ==
[2021-06-01 19:49] VITALS: BP 111/63; PULSE 71; RESP 18; TEMP 98
[2021-06-01] MEDS ORDERED: KETOROLAC 15 MG/ML 1 ML VIAL IM STA (20:00)
--- NOTE | 2021-06-01 20:49 | XR ---
EXAMINATION TYPE: XR lumbar spine 2 or 3V DATE OF EXAM: 06/01/2021 COMPARISON: NONE HISTORY: Back pain TECHNIQUE: 3 views FINDINGS: The lumbar vertebrae have normal spacing and alignment. Posterior limits are intact. There is no compression fracture. Sacroiliac joints appear normal. IMPRESSION: Normal lumbar spine exam.
--- NOTE | 2021-06-01 20:51 | XR ---
EXAMINATION TYPE: XR ankle complete LT DATE OF EXAM: 06/01/2021 COMPARISON: NONE HISTORY: Pain TECHNIQUE: 3 views FINDINGS: Ankle mortise is anatomic. I see no fracture nor dislocation. Joint spaces are normal. IMPRESSION: Negative left ankle exam. No fracture.
--- NOTE | 2021-06-01 20:52 | XR ---
EXAMINATION TYPE: XR tibia fibula LT DATE OF EXAM: 06/01/2021 COMPARISON: NONE HISTORY: Pain TECHNIQUE: 4 views FINDINGS: Tibia and fibula appear intact. Knee joint and ankle joint appear intact. I see no fracture nor dislocation. IMPRESSION: Negative left tibia and fibula exam.
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
== END 2021-06-01 21:38 | disposition home or self-care (01) ==
LOC: EC 18:55
DX: S80.12XA Contusion of left lower leg, initial encounter (principal); S93.402A Sprain of unspecified ligament of left ankle, initial encounter; J45.909 Unspecified asthma, uncomplicated; F41.9 Anxiety disorder, unspecified; F17.290 Nicotine dependence, other tobacco product, uncomplicated; F12.90 Cannabis use, unspecified, uncomplicated; X58.XXXA Exposure to other specified factors, initial encounter
CPT/HCPCS: 99283; 96372; 72100; 73590; 73610; J1885

== ENCOUNTER 2021-06-14 12:33 | Emergency (ER) | payer OTHER ==
[2021-06-14 12:54] VITALS: RESP 18
[2021-06-14] MEDS ORDERED: DIAZEPAM 5 MG/ML 2 ML INJ IM STA (13:08)
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
[2021-06-14] MEDS ORDERED: ACET/COD 300 MG/30 MG STARTER PACK 6 TAB BTL PO STA (14:59)
[2021-06-14 15:56] VITALS: BP 144/74; PULSE 64; TEMP 98.6
== END 2021-06-14 15:57 | disposition home or self-care (01) ==
LOC: EC 12:33
DX: M54.50 Low back pain, unspecified (principal); J45.909 Unspecified asthma, uncomplicated; F17.290 Nicotine dependence, other tobacco product, uncomplicated; V29.40XA Motorcycle driver injured in collision with unspecified motor vehicles in traffic accident, initial encounter
CPT/HCPCS: 72131; 99284; 96372; J3360

== ENCOUNTER 2021-06-18 11:58 | Emergency (ER) | payer OTHER ==
[2021-06-18 12:04] VITALS: RESP 16; TEMP 98
[2021-06-18] MEDS ORDERED: KETOROLAC 30 MG/ML 1 ML VIAL IVP STA (12:41)
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
[2021-06-18] MEDS ORDERED: ORPHENADRINE 30 MG/ML 2 ML VIAL IVP STA (13:26)
[2021-06-18] MEDS ORDERED: predniSONE 50 MG TAB PO STA (13:27)
[2021-06-18] MEDS ORDERED: KETOROLAC 15 MG/ML 1 ML VIAL IVP STA (15:00)
[2021-06-18 15:15] VITALS: BP 144/80; PULSE 82
== END 2021-06-18 15:15 | disposition home or self-care (01) ==
LOC: EC 11:58
DX: M54.42 Lumbago with sciatica, left side (principal); F17.290 Nicotine dependence, other tobacco product, uncomplicated; F12.90 Cannabis use, unspecified, uncomplicated
CPT/HCPCS: 99283; 96374; 96375 ×2; J2360; J1885 ×2; J7512